=== PATIENT | female | born 1960 ===

== ENCOUNTER → 2021-08-27 11:31 | Outpatient (BNVA) | payer BC, SELFPAY | PROVIDERS: PCP Internal Medicine; Visit Provider Psychiatry & Neurology Neurology | DX: G24.3 Spasmodic torticollis (principal); M47.812 Spondylosis without myelopathy or radiculopathy, cervical region | CPT/HCPCS: 64616 ==

== ENCOUNTER → 2021-12-25 13:54 | Outpatient (BNVA) | payer BC, SELFPAY | PROVIDERS: PCP Internal Medicine; Visit Provider Psychiatry & Neurology Neurology | DX: G24.3 Spasmodic torticollis (principal); M47.812 Spondylosis without myelopathy or radiculopathy, cervical region | CPT/HCPCS: 64616; J0585 ==

== ENCOUNTER → 2022-04-13 10:59 | Outpatient (BNVA) | payer BC, SELFPAY | PROVIDERS: PCP Internal Medicine; Visit Provider Psychiatry & Neurology Neurology | DX: G24.3 Spasmodic torticollis (principal); M47.812 Spondylosis without myelopathy or radiculopathy, cervical region | CPT/HCPCS: 64616; J0588 ==

== ENCOUNTER → 2022-07-13 14:26 | Outpatient (BNVA) | payer BC, SELFPAY | PROVIDERS: PCP Internal Medicine; Visit Provider Psychiatry & Neurology Neurology | DX: G24.3 Spasmodic torticollis (principal); M47.812 Spondylosis without myelopathy or radiculopathy, cervical region | CPT/HCPCS: 64616; J0585 ==

== ENCOUNTER → 2022-10-12 11:31 | Outpatient (BNVA) | payer BC, SELFPAY | PROVIDERS: PCP Internal Medicine; Visit Provider Psychiatry & Neurology Neurology | DX: G24.3 Spasmodic torticollis (principal); M47.812 Spondylosis without myelopathy or radiculopathy, cervical region | CPT/HCPCS: 64616; J0588 ==

== ENCOUNTER → 2023-01-07 10:27 | Outpatient (BNVA) | payer BC, SELFPAY | PROVIDERS: PCP Internal Medicine; Visit Provider Psychiatry & Neurology Neurology | DX: G24.9 Dystonia, unspecified (principal) | CPT/HCPCS: 64616; J0588 ==

== ENCOUNTER 2023-04-09 10:58 | Outpatient (AMB) | payer BC, SELFPAY ==
[2023-04-09 11:07] VITALS: BP 136/96; PULSE 71; O2SAT 100; BMI 21.4
--- NOTE | 2023-04-09 11:07 | A.OFFVIS_ITS ---
Intake Vital Signs 04/09/23 11:07 Height 5 ft 10 in Weight 149 lb BMI 21.4 BP 136/96 H Blood Pressure Location Lt brachial Position Sitting Pulse 71 Pulse Source Pulse Oximeter Pulse Oximetry (%) 100 Oxygen Delivery Method Room Air Intake Visit Reasons: Botox-lvm Intake Note: Pt presents in office for botox Detasseler Required: No Allergies shellfish derived Allergy (Mild, Verified 04/09/23 11:09) Vomiting Medication List - Last Reconciled 04/09/23 by Raven Geller MD acetaminophen (Tylenol Extra Strength) 500 mg PO Q6H PRN albuterol sulfate 90 mcg/actuation 0 mcg inhalation celecoxib mg PO BID conjugated estrogens (Premarin) 0.625 mg PO DAILY cyclobenzaprine 10 mg PO BEDTIME estradiol 0.01%(0.1mg/gram) grams vaginal incobotulinumtoxinA 300 units to be injecte dto neck muscles intramuscularly ; omeprazole 40 mg PO DAILY ondansetron HCl 4 mg PO Q8H ondansetron HCl 4 mg PO Q6H spironolactone 50 mg PO DAILY HPI HPI Comments History of Present Illness Details ? 62 y/o female comes for treatment of her dystonia with Botox. ??? Side effects including spread of toxin effect, dysphagia, breathing difficulties , bronchitis etc was discussed in detail and the patient agreed to the procedure. ? Botulinum toxin type A - xeomin 300units was diluted with 6 cc of normal saline at a concentration of 25 units in 0.5cc saline. Lot number- [id number] exp 01/24 ??? Muscles injected ??? Right Splenius - 75units each right temporalis 25 units right semispinalis 25 Left Splenius 50 units Right masseter 25 units ??? Right levator 50 units each ??? Left levator 50 units ??? Total used 300 units she reports intermittent parasthesias in the whit little and ring finger especially at night ???She was seen by Dr Craft who did not think she was a surgical candidate . [facility] Medical History GERD (gastroesophageal reflux disease) Surgical History H/O: hysterectomy Family History Father Myocardial infarction Mother HTN (hypertension) Family/Other Myocardial infarction Sister Myocardial infarction Social History Alcohol intake: never Patient Tobacco Use Status: Never used Tobacco Physical Exam Vital Signs: Last Vital Signs Pulse 71 04/09/23 11:07 BP 136/96 H 04/09/23 11:07 Pulse Ox 100 04/09/23 11:07 Oxygen Delivery Method Room Air 04/09/23 11:07 BMI result Body Mass Index 21.4 Const Orientation/consciousness: patient oriented x3 HEENT Other: head tremors, restricted jaw movement Spasmodic torticollis Head: Yes normocephalic and Yes atraumatic Neuro General: patient oriented x3, gait normal, tone normal, moves all extremities and no focal motor deficits Office Procedures Botulinum toxin Injection 35462 - Dystonia Procedure code (CPT) selection complete Office Meds incobotulinumtoxinA 100 unit intramuscular solution Performing Provider: Raven Geller MD Performing Location: [facility] [place] [facility] Administered by: Raven Geller MD on 04/09/23 15:17 Dose Route Admin Location Dispensed Lot Number Expiration Date [facility] [place] [employer] 300 unit IM 300 units [id number] 03/02/25 9394-8563-95 [place] Comments: see hpi Assessment & Plan Assessment & Plan (1) 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 she will call with any side effects will refer to [facility] for opinion . Orders: Orders AMB Botulinum toxin Injection - Patient Supplied Today G24.3 - Spasmodic torticollis Coding Level of Care Code Est Pt Level 1 (96744) Diagnoses Spasmodic torticollis G24.3 Cervical spondylosis M47.812 CPT Codes Botox Injection - Botox 4: 53681 - Dystonia ([id number])
== END 2023-04-09 11:29 | disposition home or self-care (01) ==
PROVIDERS: PCP Internal Medicine; Visit Provider Psychiatry & Neurology Neurology
DX: G24.3 Spasmodic torticollis (principal)
CPT/HCPCS: 64616

== ENCOUNTER → 2023-04-09 10:58 | Outpatient (BNVA) | payer BC, SELFPAY | PROVIDERS: PCP Internal Medicine; Visit Provider Psychiatry & Neurology Neurology | DX: G24.3 Spasmodic torticollis (principal); M47.812 Spondylosis without myelopathy or radiculopathy, cervical region | CPT/HCPCS: 64616; 99211; J0588 ==

== ENCOUNTER 2023-07-12 11:00 | Outpatient (AMB) | payer BC, SELFPAY ==
--- NOTE | 2023-07-12 11:12 | A.OFFVIS_ITS ---
Intake Vital Signs 07/12/23 11:13 Height 5 ft 10 in Weight 146 lb 4 oz BMI 21.0 BP 126/72 Blood Pressure Location Rt brachial Position Sitting Respiration 16 Pulse 93 Pulse Source Pulse Oximeter Pulse Oximetry (%) 98 Oxygen Delivery Method Room Air Intake Visit Reasons: Botox - Confirmed Intake Note: Pt presents to the office for Botox injections. Prop Drawer Required: No Allergies shellfish derived Allergy (Mild, Verified 07/12/23 11:13) Vomiting Medication List - Last Reconciled 07/12/23 by Raven Geller MD acetaminophen (Tylenol Extra Strength) 500 mg PO Q6H PRN albuterol sulfate 90 mcg/actuation 0 mcg inhalation amlodipine 5 mg PO DAILY celecoxib mg PO BID conjugated estrogens (Premarin) 0.625 mg PO DAILY cyclobenzaprine 10 mg PO BEDTIME estradiol 0.01%(0.1mg/gram) grams vaginal incobotulinumtoxinA 300 units to be injecte dto neck muscles intramuscularly ; omeprazole 40 mg PO DAILY ondansetron HCl 4 mg PO Q8H ondansetron HCl 4 mg PO Q6H spironolactone 50 mg PO DAILY HPI HPI Comments History of Present Illness Details ? 62 y/o female comes for treatment of her dystonia with Botox. ??? Side effects including spread of toxin effect, dysphagia, breathing difficulties , bronchitis etc was discussed in detail and the patient agreed to the procedure. ? Botulinum toxin type A - xeomin 300units was diluted with 6 cc of normal saline at a concentration of 25 units in 0.5cc saline. Lot number- [id number] exp 04/26 ??? Muscles injected ??? Right Splenius - 75units each right temporalis 25 units right semispinalis 25 Left Splenius 50 units Right masseter 25 units Left masseter 25 units ??? Right levator 50 units each ??? Left levator 25 units ??? Total used 300 units she reports intermittent parasthesias in the whit little and ring finger especially at night ???She was seen by Dr Craft who did not think she was a surgical candidate . [facility] Medical History GERD (gastroesophageal reflux disease) Surgical History H/O: hysterectomy Family History Father Myocardial infarction Mother HTN (hypertension) Family/Other Myocardial infarction Sister Myocardial infarction Social History Alcohol intake: never Patient Tobacco Use Status: Never used Tobacco Physical Exam Vital Signs: Last Vital Signs Pulse 93 07/12/23 11:13 Resp 16 07/12/23 11:13 BP 126/72 07/12/23 11:13 Pulse Ox 98 07/12/23 11:13 Oxygen Delivery Method Room Air 07/12/23 11:13 BMI result Body Mass Index 21.0 Const Orientation/consciousness: patient oriented x3 HEENT Other: head tremors, restricted jaw movement Spasmodic torticollis Head: Yes normocephalic and Yes atraumatic Neuro General: patient oriented x3, gait normal, tone normal, moves all extremities and no focal motor deficits Office Procedures Botulinum toxin Injection 78046 - Dystonia Procedure code (CPT) selection complete Office Meds incobotulinumtoxinA 100 unit intramuscular solution Performing Provider: Raven Geller MD Performing Location: [facility] [place] [facility] Administered by: Raven Geller MD on 07/12/23 11:58 Dose Route Admin Location Dispensed Lot Number Expiration Date 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 she will call with any side effects will refer to [facility] for opinion . Orders: Orders AMB Botulinum toxin Injection - Patient Supplied Today G24.3 - Spasmodic torticollis Coding Level of Care Code Est Pt Level 1 (02811) Diagnoses Spasmodic torticollis G24.3 Cervical spondylosis M47.812 CPT Codes Botox Injection - Botox 4: 33336 - Dystonia ([id number])
[2023-07-12 11:13] VITALS: BP 126/72; PULSE 93; RESP 16; O2SAT 98; BMI 21.0
== END 2023-07-12 11:49 | disposition home or self-care (01) ==
PROVIDERS: PCP Internal Medicine; Visit Provider Psychiatry & Neurology Neurology
DX: G24.3 Spasmodic torticollis (principal)
CPT/HCPCS: 64616

== ENCOUNTER → 2023-07-12 11:00 | Outpatient (BNVA) | payer BC, SELFPAY | PROVIDERS: PCP Internal Medicine; Visit Provider Psychiatry & Neurology Neurology | DX: G24.3 Spasmodic torticollis (principal); M47.812 Spondylosis without myelopathy or radiculopathy, cervical region | CPT/HCPCS: 64616; 99211; J0588 ==

== ENCOUNTER 2023-08-11 10:59 | Outpatient (AMB) | payer BC, SELFPAY ==
--- NOTE | 2023-08-11 11:03 | A.OFFVIS_ITS ---
Intake Vital Signs 08/11/23 11:04 Height 5 ft 10 in BP 122/84 Blood Pressure Location Rt brachial Position Sitting Pulse 93 Pulse Source Pulse Oximeter Pulse Oximetry (%) 99 Oxygen Delivery Method Room Air Intake Visit Reasons: F/u Allergies shellfish derived Allergy (Mild, Verified 08/11/23 11:08) Vomiting Medication List - Last Reconciled 08/11/23 by Raven Geller MD acetaminophen (Tylenol Extra Strength) 500 mg PO Q6H PRN albuterol sulfate 90 mcg/actuation 0 mcg inhalation amitriptyline 25 mg PO BEDTIME amlodipine 5 mg PO DAILY celecoxib mg PO BID conjugated estrogens (Premarin) 0.625 mg PO DAILY cyclobenzaprine 10 mg PO BEDTIME estradiol 0.01%(0.1mg/gram) grams vaginal incobotulinumtoxinA 300 units to be injecte dto neck muscles intramuscularly ; omeprazole 40 mg PO DAILY ondansetron HCl 4 mg PO Q8H ondansetron HCl 4 mg PO Q6H spironolactone 50 mg PO DAILY HPI HPI Comments History of Present Illness Details 62y/o female with cervical spondylosis a nd dystonia , jaw tremors comes for evaluation of head pain headaches and transient vision loss.she also has numbness in whit hands and hand tremors . ABout 1 year she started having vision issues - she describes like a crescent shaped visual field loss in whit eyes- when she is reading she has some words that are blurry and when she closes her eye she sees bright kaliedoscope patterns which last 20 minutes and had headaches.she had these episodes daily for 2 weeks and it resolved.the headaches are associated with photophobia nausea etc. She has had multiple lyme infections - and everytime she has similar headaches with visual issues. she was diagnosed with Lyme and treated with antibiotics. 3 mths ago she had another lyme infection and is on antibiotics, again she started having similar episodes. she has 1 episode a week . [facility] Medical History (Updated 08/11/23 @ 11:35 by Raven Geller MD) Migraine aura occurring with and without headache Numbness and tingling in both hands GERD (gastroesophageal reflux disease) Surgical History H/O: hysterectomy Family History Father Myocardial infarction Mother HTN (hypertension) Family/Other Myocardial infarction Sister Myocardial infarction Social History Alcohol intake: never Patient Tobacco Use Status: Never used Tobacco Physical Exam Vital Signs: Last Vital Signs Pulse 93 08/11/23 11:04 BP 122/84 08/11/23 11:04 Pulse Ox 99 08/11/23 11:04 Oxygen Delivery Method Room Air 08/11/23 11:04 Const Orientation/consciousness: patient oriented x3 HEENT Other: head tremors, restricted jaw movement Spasmodic torticollis Head: Yes normocephalic and Yes atraumatic Neuro General: patient oriented x3, gait normal, tone normal, moves all extremities and no focal motor deficits Assessment & Plan Assessment & Plan (1) Migraine aura occurring with and without headache: Code(s): G43.109 - Migraine with aura, not intractable, without status migrainosus (2) Numbness and tingling in both hands: Code(s): R20.0 - Anesthesia of skin; R20.2 - Paresthesia of skin Plan EMG UE to r/o carpal tunnel syndrome I will trail her on amitriptyline 25mg qhs and magnesium 300mg qhs Vit B 2 400mg qam 'sumatriptan 50mg prn Orders: Orders NE electromyogram (EMG) Today R20.0 - Anesthesia of skin, R20.2 - Paresthesia of skin Medications: New amitriptyline 25 mg PO BEDTIME 30 tabs 6RF sumatriptan succinate take 1 tab at onset of headache; if no relief may repeat 1 tab after at least 2 hrs; max = 4 tabs/24 hr PO 14 tabs 6RF riboflavin (vitamin B2) 400 mg (4 x 100 mg) PO DAILY 120 tabs 6RF Coding Level of Care Code Est Pt Level 4 (54750) Diagnoses Migraine aura occurring with and without headache G43.109 Numbness and tingling in both hands R20.0; R20.2
[2023-08-11 11:04] VITALS: BP 122/84; PULSE 93; O2SAT 99
== END 2023-08-11 11:41 | disposition home or self-care (01) ==
PROVIDERS: PCP Internal Medicine; Visit Provider Psychiatry & Neurology Neurology
DX: G43.109 Migraine with aura, not intractable, without status migrainosus (principal); R20.0 Anesthesia of skin; R20.2 Paresthesia of skin
CPT/HCPCS: 99214

== ENCOUNTER → 2023-08-11 10:59 | Outpatient (BNVA) | payer BC, SELFPAY | PROVIDERS: PCP Internal Medicine; Visit Provider Psychiatry & Neurology Neurology ==

== ENCOUNTER 2023-09-15 13:24 | Outpatient (REF) | payer BC, SELFPAY ==
--- NOTE | 2023-09-15 13:30 | EMG_ITS ---
Chief complaint: Bilateral numbness 4th and 5th digits, chronic neck pain Reason for referral: Evaluate for ulnar neuropathy Referred by: Dr. Geller Procedure done: Bilateral upper extremities NCS/EMG Precautions and/or limitations: None The limb temperature was monitored continuously and remained between 32-36 degrees C during the performance of the NCS. Ulnar motor NCS was performed with moderate elbow flexion between 70-90 degrees, with across-elbow distance of 10 cm. Nerve Conduction Studies Anti Sensory Summary Table ?Stim Site NR Onset (ms) Norm Onset (ms) Peak (ms) Norm Peak (ms) O-P Amp (?V) Norm O-P Amp Site1 Site2 Delta-0 (ms) Dist (cm) Chinmay (m/s) Norm Chinmay (m/s) Left Median Anti Sensory (2nd Digit) Wrist ? 2.7 3.6 <3.6 9.1 >10 Wrist 2nd Digit 2.7 14.0 52 Right Median Anti Sensory (2nd Digit) Wrist ? 2.9 3.8 <3.6 19.3 >10 Wrist 2nd Digit 2.9 14.0 48 Right Radial Anti Sensory (Thumb) Forearm ? 1.7 2.5 <3.1 13.7 Forearm Thumb 1.7 0.0 Left Ulnar Anti Sensory (5th Digit) Wrist ? 2.7 3.4 <3.7 16.7 >15.0 Wrist 5th Digit 2.7 14.0 52 Right Ulnar Anti Sensory (5th Digit) Wrist ? 2.8 3.8 <3.7 17.0 >15.0 Wrist 5th Digit 2.8 14.0 50 Motor Summary Table ?Stim Site NR Onset (ms) Norm Onset (ms) O-P Amp (mV) Norm O-P Amp iAmp (mV) Amp (1st) (%) Site1 Site2 Delta-0 (ms) Dist (cm) Chinmay (m/s) Norm Chinmay (m/s) Left Median Motor (Abd Poll Brev) Wrist ? 3.6 <3.9 9.8 >4.5 11.4 100.0 Elbow Wrist 4.6 25.0 54 >45 Elbow ? 8.2 9.3 11.1 94.9 Right Median Motor (Abd Poll Brev) Wrist ? 3.6 <3.9 11.2 >4.5 13.6 100.0 Elbow Wrist 4.9 25.0 51 >45 Elbow ? 8.5 10.3 12.6 92.0 Left Ulnar Motor (Abd Dig Minimi) Wrist ? 3.0 <3.0 9.4 >5 11.7 100.0 B Elbow Wrist 4.2 20.0 48 >45 B Elbow ? 7.2 8.2 10.7 87.2 A Elbow B Elbow 2.0 10.0 50 >45 A Elbow ? 9.2 6.8 9.5 72.3 Right Ulnar Motor (Abd Dig Minimi) Wrist ? 3.0 <3.0 8.4 >5 10.9 100.0 B Elbow Wrist 4.4 22.0 50 >45 B Elbow ? 7.4 7.0 9.5 83.3 A Elbow B Elbow 1.8 10.0 56 >45 A Elbow ? 9.2 6.9 9.3 82.1 EMG ?Side Muscle Nerve Root Ins Act Fibs Psw Amp Dur Poly Recrt Int Pat Comment Right 1stDorInt Ulnar C8-T1 Nml Nml Nml Nml Nml 0 Nml Complete Right FlexCarRad Median C6-7 Nml Nml Nml Nml Nml 0 Nml Complete Right Biceps Musculocut C5-6 Nml Nml Nml Nml Nml 0 Nml Complete Right Triceps Radial C6-7-8 Nml Nml Nml Nml Nml 0 Nml Complete Right Deltoid Axillary C5-6 Nml Nml Nml Nml Nml 0 Nml Complete Left 1stDorInt Ulnar C8-T1 Nml Nml Nml Nml Nml 0 Nml Complete Left FlexCarRad Median C6-7 Nml Nml Nml Nml Nml 0 Nml Complete Left Biceps Musculocut C5-6 Nml Nml Nml Incr Incr 0 Nml Complete Left Triceps Radial C6-7-8 Nml Nml Nml Nml Nml 0 Nml Complete Left Deltoid Axillary C5-6 Nml Nml Nml Nml Nml 0 Nml Complete Paraspinal EMG ?Side Muscle Nerve Root Ins Act Fibs Psw Comment Right Cervical Upper Rami Nml Nml Nml Right Cervical Mid Rami Nml Nml Nml Right Cervical Lower Rami Nml Nml Nml Left Cervical Upper Rami Nml Nml Nml Left Cervical Mid Rami Incr 2+ 2+ Left Cervical Lower Rami Nml Nml Nml FINDINGS: All motor and sensory nerves tested showed normal latencies, amplitudes and conduction velocities. Concentric needle EMG was performed in selected muscles of the bilateral upper extremities and cervical paraspinals. Study revealed Signs of electric abnormalities as shown in the table below. Left biceps showed increased amplitude and duration. Left mid cervical paraspinals showed insertional activity, PSWs and fibrillations. IMPRESSION: 1. This is an abnormal study. 2. There is electrodiagnostic evidence for left subacute/chronic C5-6 radiculopathy. 3. There is no electrodiagnostic evidence for median neuropathy, ulnar neuropathy, or brachial plexopathy. Thank you for your kind referral. Alexandria Avalos MD, LAUREN Board Certified, [place] Board of Physical Medicine and Rehabilitation (ABPMR) Board Certified, [place] Board of Electrodiagnostic Medicine (ABEM) CODIN 41542 x2 MTDD
== END 2023-09-15 13:25 | disposition home or self-care (01) ==
LOC: HO.NEURO 13:24
PROVIDERS: Visit Provider Psychiatry & Neurology Neurology
DX: R20.0 Anesthesia of skin (principal); R20.2 Paresthesia of skin
CPT/HCPCS: 95886; 95911

== ENCOUNTER → 2023-09-15 13:30 | Outpatient (BNV) | payer BC, SELFPAY | PROVIDERS: Visit Provider Physical Medicine & Rehabilitation | DX: R20.0 Anesthesia of skin (principal); M50.122 Cervical disc disorder at C5-C6 level with radiculopathy | CPT/HCPCS: 95886; 95911 ==

== ENCOUNTER 2023-11-16 12:56 | Outpatient (AMB) | payer BC, SELFPAY ==
--- NOTE | 2023-11-16 13:03 | MHC.OFFVIS ---
Intake Vital Signs 11/16/23 13:04 Height 5 ft 10 in Weight 148 lb BMI 21.2 BP 138/70 Blood Pressure Location Rt brachial Position Sitting Respiration 16 Pulse 85 Pulse Source Pulse Oximeter Pulse Oximetry (%) 98 Oxygen Delivery Method Room Air Intake Visit Reasons: 3 mo f/u-LVM Intake Note: Pt presents for a 3 month follow up for migraines. Glass Loading Equipment Tender Required: No Allergies shellfish derived Allergy (Mild, Verified 11/16/23 13:03) Vomiting HPI HPI Comments History of Present Illness Details 63y/o female with cervical spondylosis and dystonia , jaw tremors comes for follow up. she was seen at [facility] and had RF ablation - C5-6 and C6-7 she is doing better. she had neck weakness after botox but now she is better, Amitriptyline helps with her migraines. she had 2 migraines last month . No visual aura for over 3 weeks ABout 2 year she started having vision issues - she describes like a crescent shaped visual field loss in whit eyes- when she is reading she has some words that are blurry and when she closes her eye she sees bright kaliedoscope patterns which last 20 minutes and had headaches.the headaches are associated with photophobia nausea etc. She has had multiple lyme infections - and everytime she has similar headaches with visual issues. she was diagnosed with Lyme and treated with antibiotics. [facility] Medical History Migraine aura occurring with and without headache Numbness and tingling in both hands GERD (gastroesophageal reflux disease) Surgical History H/O: hysterectomy Family History Father Myocardial infarction Mother HTN (hypertension) Family/Other Myocardial infarction Sister Myocardial infarction Social History Alcohol intake: never Patient Tobacco Use Status: Never used Tobacco Physical Exam Vital Signs: Last Vital Signs Pulse 85 11/16/23 13:04 Resp 16 11/16/23 13:04 BP 138/70 11/16/23 13:04 Pulse Ox 98 11/16/23 13:04 Oxygen Delivery Method Room Air 11/16/23 13:04 BMI result Body Mass Index 21.2 Const Orientation/consciousness: patient oriented x3 HEENT Other: restricted range of motion Spasmodic torticollis Head: Yes normocephalic and Yes atraumatic Neuro General: patient oriented x3, gait normal, tone normal, moves all extremities and no focal motor deficits Results Reviewed Results Reviewed: 09/25 - EMG- 2. There is electrodiagnostic evidence for left subacute/chronic C5-6 radiculopathy. 3. There is no electrodiagnostic evidence for median neuropathy, ulnar neuropathy, or brachial plexopathy. Assessment & Plan Assessment & Plan (1) Migraine aura occurring with and without headache: Code(s): G43.109 - Migraine with aura, not intractable, without status migrainosus (2) Cervical spondylosis: Code(s): M47.812 - Spondylosis without myelopathy or radiculopathy, cervical region Plan Amitriptyline 25mg qhs and magnesium 300mg qhs Vit B 2 400mg qam 'sumatriptan 50mg prn F/u [facility] Coding Level of Care Code Est Pt Level 4 (91452) Diagnoses Migraine aura occurring with and without headache G43.109 Cervical spondylosis M47.812
[2023-11-16 13:04] VITALS: BP 138/70; PULSE 85; RESP 16; O2SAT 98; BMI 21.2
== END 2023-11-16 13:27 | disposition home or self-care (01) ==
PROVIDERS: PCP Internal Medicine; Visit Provider Psychiatry & Neurology Neurology
DX: G43.109 Migraine with aura, not intractable, without status migrainosus (principal); M47.812 Spondylosis without myelopathy or radiculopathy, cervical region
CPT/HCPCS: 99214

== ENCOUNTER → 2023-11-16 12:56 | Outpatient (BNVA) | payer BC, SELFPAY | PROVIDERS: PCP Internal Medicine; Visit Provider Psychiatry & Neurology Neurology ==

== ENCOUNTER 2024-02-29 09:56 | Outpatient (AMB) | payer BC, SELFPAY ==
--- NOTE | 2024-02-29 10:10 | A.OFFVIS_ITS ---
Vital Signs 02/29/24 10:14 Height 5 ft 10 in Weight 148 lb BMI 21.2 BP 140/82 H Blood Pressure Location Rt brachial Position Sitting Respiration 16 Pulse 90 Pulse Source Pulse Oximeter Pulse Oximetry (%) 98 Oxygen Delivery Method Room Air Intake Visit Reasons: 6 mon follow up-LVM Intake Note: Pt presents to the office for 3 month follow up for Cervical spondylosis. Childcare Center Director Required: No Allergies shellfish derived Allergy (Mild, Verified 02/29/24 10:10) Vomiting Medication List - Last Reconciled 02/29/24 by Raven Geller MD acetaminophen (Tylenol Extra Strength) 500 mg PO Q6H PRN albuterol sulfate 90 mcg/actuation 0 mcg inhalation amitriptyline 50 mg (2 x 25 mg) PO BEDTIME amlodipine 5 mg PO DAILY celecoxib mg PO BID conjugated estrogens (Premarin) 0.625 mg PO DAILY cyclobenzaprine 10 mg PO BEDTIME estradiol 0.01%(0.1mg/gram) grams vaginal omeprazole 40 mg PO DAILY ondansetron HCl 4 mg PO Q8H ondansetron HCl 4 mg PO Q6H riboflavin (vitamin B2) 400 mg (4 x 100 mg) PO DAILY spironolactone 50 mg PO DAILY sumatriptan succinate take 1 tab at onset of headache; if no relief may repeat 1 tab after at least 2 hrs; max = 4 tabs/24 hr PO HPI Comments Details: 63y/o female with cervical spondylosis and dystonia , jaw tremors comes for follow up.she is feeling Ok but has some tingling in the posterior neck intermittently - last few seconds ( almost like bee sting) she was seen at [facility] and had RF ablation - C5-6 and C6-7 - did not follow up. she is doing better. Amitriptyline 25mg qhs helps with her migraines. she had 3 migraines last month . But has visual aura 3/week . They last 15-20 minutes.she saw device processing engineer in Aug 2023 . ABout 2 year she started having vision issues - she describes like a crescent shaped visual field loss in whit eyes- when she is reading she has some words that are blurry and when she closes her eye she sees bright kaliedoscope patterns which last 20 minutes and had headaches.the headaches are associated with photophobia nausea etc. She has had multiple lyme infections - and everytime she has similar headaches with visual issues. [facility] Medical History (Updated 02/29/24 @ 10:28 by Raven Geller MD) Chronic headaches Visual aura Migraine aura occurring with and without headache Numbness and tingling in both hands GERD (gastroesophageal reflux disease) Surgical History H/O: hysterectomy Family History Father Myocardial infarction Mother HTN (hypertension) Family/Other Myocardial infarction Sister Myocardial infarction Social History Alcohol intake: never Patient Tobacco Use Status: Never used Tobacco Physical Exam Vital Signs: Last Vital Signs Pulse 90 02/29/24 10:14 Resp 16 02/29/24 10:14 BP 140/82 H 02/29/24 10:14 Pulse Ox 98 02/29/24 10:14 Oxygen Delivery Method Room Air 02/29/24 10:14 BMI result Body Mass Index 21.2 Const Orientation/consciousness: patient oriented x3 HEENT Other: restricted range of motion Spasmodic torticollis Head: Yes normocephalic and Yes atraumatic Neuro General: patient oriented x3, gait normal, tone normal, moves all extremities and no focal motor deficits Assessment & Plan Assessment & Plan (1) Migraine aura occurring with and without headache: Code(s): G43.109 - Migraine with aura, not intractable, without status migrainosus Category: Medical (2) Cervical spondylosis: Code(s): M47.812 - Spondylosis without myelopathy or radiculopathy, cervical region Category: Medical (3) Visual aura: Code(s): H53.9 - Unspecified visual disturbance Category: Medical Plan Increase Amitriptyline 50mg qhs and magnesium 300mg qhs Vit B 2 400mg qam 'sumatriptan 50mg prn F/u [facility] will check for lyme Orders: Orders Lyme IgG/IgM w/reflex to WB Today G43.109 - Migraine with aura, not intractable, without status migrainosus, G89.29 - Other chronic pain, H53.9 - Unspecified visual disturbance, R51.9 - Headache, unspecified Medications: New ondansetron HCl 4 mg PO Q6H 30 tabs 2RF Changed From amitriptyline 25 mg PO BEDTIME 30 tabs 6RF To amitriptyline 50 mg (2 x 25 mg) PO BEDTIME 60 tabs 6RF Refilled ondansetron HCl 4 mg PO Q6H 30 tabs 2RF Coding Level of Care Code Est Pt Level 4 (17388) Diagnoses Migraine aura occurring with and without headache G43.109 Cervical spondylosis M47.812 Visual aura H53.9
[2024-02-29 10:14] VITALS: BP 140/82; PULSE 90; RESP 16; O2SAT 98; BMI 21.2
== END 2024-02-29 10:32 | disposition home or self-care (01) ==
PROVIDERS: PCP Internal Medicine; Visit Provider Psychiatry & Neurology Neurology
DX: G43.109 Migraine with aura, not intractable, without status migrainosus (principal); M47.812 Spondylosis without myelopathy or radiculopathy, cervical region; H53.9 Unspecified visual disturbance
CPT/HCPCS: 99214

== ENCOUNTER → 2024-02-29 09:56 | Outpatient (BNVA) | payer BC, SELFPAY | PROVIDERS: PCP Internal Medicine; Visit Provider Psychiatry & Neurology Neurology ==

== ENCOUNTER 2024-02-29 10:35 | Outpatient (REF) | payer BC, SELFPAY ==
[2024-03-03 11:42] LABS: Lyme Abs Screen POSITIVE
[2024-03-06 21:44] LABS: 18 KD (IgG) Band REACTIVE; 23 KD (IgG) Band REACTIVE; 23 KD (IgM) Band REACTIVE; 28 KD (IgG) Band NON-REACTIVE; 30 KD (IgG) Band NON-REACTIVE; 39 KD (IgM) Band NON-REACTIVE; 39KD (IgG) Band REACTIVE; 41 KD (IgM) Band NON-REACTIVE; 41KD (IgG) Band REACTIVE; 45 KD (IgG) Band NON-REACTIVE; 58 KD (IgG) Band REACTIVE; 66 KD (IgG) Band NON-REACTIVE; 93 KD (IgG) Band NON-REACTIVE; Lyme IgG Blot Interp POSITIVE (NEGATIVE); Lyme IgM Blot Interp NEGATIVE (NEGATIVE)
== END 2024-02-29 10:36 | disposition home or self-care (01) ==
LOC: HO.HKASLDS 10:35
PROVIDERS: Visit Provider Psychiatry & Neurology Neurology
DX: G43.109 Migraine with aura, not intractable, without status migrainosus (principal); H53.9 Unspecified visual disturbance; G89.29 Other chronic pain
CPT/HCPCS: 36415; 86617; 86618

== ENCOUNTER 2024-09-28 12:31 | Outpatient (AMB) | payer BC, SELFPAY ==
--- NOTE | 2024-09-28 12:32 | A.OFFVIS_ITS ---
Vital Signs 09/28/24 12:33 Height 5 ft 10 in Weight 151 lb BMI 21.7 BP 122/88 Blood Pressure Location Rt brachial Position Sitting Pulse 92 Pulse Source Pulse Oximeter Pulse Oximetry (%) 98 Oxygen Delivery Method Room Air Intake Visit Reasons: 6m follow up Intake Note: patient following up for labs done 02/29/24- [facility] consult 03/05/23 scanned. Allergies shellfish derived Allergy (Mild, Verified 09/28/24 12:34) Vomiting Medication List - Last Reconciled 09/28/24 by Raven Geller MD acetaminophen (Tylenol Extra Strength) 500 mg PO Q6H PRN albuterol sulfate 90 mcg/actuation 0 mcg inhalation amitriptyline 50 mg (2 x 25 mg) PO BEDTIME amlodipine 5 mg PO DAILY celecoxib mg PO BID conjugated estrogens (Premarin) 0.625 mg PO DAILY cyclobenzaprine 10 mg PO BEDTIME estradiol 0.01%(0.1mg/gram) grams vaginal magnesium carb,citrate,oxide (Magnesium Complex) mg PO omeprazole 40 mg PO DAILY ondansetron HCl 4 mg PO Q8H ondansetron HCl 4 mg PO Q6H riboflavin (vitamin B2) 400 mg (4 x 100 mg) PO DAILY spironolactone 50 mg PO DAILY sumatriptan succinate take 1 tab at onset of headache; if no relief may repeat 1 tab after at least 2 hrs; max = 4 tabs/24 hr PO HPI Comments Details: 63y/o female with cervical spondylosis and dystonia , jaw tremors comes for follow up. she is following up with [facility] . she had a second ablation in her neck 6 weeks ago and has not noticed a difference.C3-4-5. Last ablation was RF at C 5-6-7. The tingling in posterior head are better. she still ahs a daily low grade headache 4/10 and has visual aura for 20 minutes. she saw operations representative in Aug 2023 . Lyme test was positive in January 2024- had another course of antibiotics. ABout 6 year she started having vision issues - she describes like a crescent shaped visual field loss in whit eyes- when she is reading she has some words that are blurry and when she closes her eye she sees bright kaliedoscope patterns which last 20 minutes and had headaches.the headaches are associated with photophobia nausea etc. She has had multiple lyme infections - and everytime she has similar headaches with visual issues. [facility] Medical History (Updated 09/28/24 @ 12:53 by Raven Geller MD) Chronic migraine with aura without status migrainosus, not intractable Lyme disease, unspecified Chronic headaches Visual aura Migraine aura occurring with and without headache Numbness and tingling in both hands GERD (gastroesophageal reflux disease) Surgical History H/O: hysterectomy Family History Father Myocardial infarction Mother HTN (hypertension) Family/Other Myocardial infarction Sister Myocardial infarction Social History Alcohol intake: never Patient Tobacco Use Status: Never used Tobacco Physical Exam Vital Signs: Last Vital Signs Pulse 92 09/28/24 12:33 BP 122/88 09/28/24 12:33 Pulse Ox 98 09/28/24 12:33 Oxygen Delivery Method Room Air 09/28/24 12:33 BMI result Body Mass Index 21.7 Const Orientation/consciousness: patient oriented x3 HEENT Other: restricted range of motion Spasmodic torticollis Head: Yes normocephalic and Yes atraumatic Neuro General: patient oriented x3, gait normal, tone normal, moves all extremities and no focal motor deficits Assessment & Plan Assessment & Plan (1) Chronic migraine with aura without status migrainosus, not intractable: Code(s): G43.E09 - Chronic migraine with aura, not intractable, without status migrainosus Category: Medical (2) Cervical spondylosis: Code(s): M47.812 - Spondylosis without myelopathy or radiculopathy, cervical region Category: Medical (3) Visual aura: Code(s): H53.9 - Unspecified visual disturbance Category: Medical Plan ID ref for possible chronic Lyme Lyme titer Restart cyclobenzaprine 5 mg qhs ( she has meds at home ) Amitriptyline 50mg qhs and magnesium 300mg qhs Vit B 2 400mg qam 'sumatriptan 50mg prn F/u [facility] will check for lyme Orders: Orders Lyme IgG/IgM w/reflex to [facility] Today A69.20 - Lyme disease, unspecified, G43.E09 - Chronic migraine with aura, not intractable, without status migrainosus Referrals Infectious Disease Referral A69.20 - Lyme disease, unspecified, G89.29 - Other chronic pain, R51.9 - Headache, unspecified Medications: Refilled cyclobenzaprine 10 mg PO BEDTIME 30 tabs 1RF Coding Level of Care Code Est Pt Level 4 (04127) Complex EM visit Add On G2211 Diagnoses Chronic migraine with aura without status migrainosus, not intractable G43.E09 Cervical spondylosis M47.812 Visual aura H53.9
[2024-09-28 12:33] VITALS: BP 122/88; PULSE 92; O2SAT 98; BMI 21.7
--- OUTSIDE RECORDS SUMMARY | 2024-09-28 14:56 | XMS_ITS | Encounter Summary ---
Author Organization [facility] Address [address] [place] [address] Care Team Providers Care Displayer Merchandise Name Role Phone Dar Starks MD Primary Care Provider [phone] Encounter Details Date Type Department Care Team (Latest Contact Info) Description 09/06/2024 3:04 PM EST - 09/06/2024 11:59 PM EST Hospital Encounter Xray - [facility] [address] [place] [id number] Viral URI with cough; Moderate persistent asthma with exacerbation; Wheezing Discharge Disposition: Home or Self Care Social History Tobacco Use Types Packs/Day Years Used Date Smoking Tobacco: Never Smokeless Tobacco: Never Alcohol Use Standard Drinks/Week Comments Yes 0 (1 standard drink = 0.6 oz pur e alcohol) Comments No Sex and Gender Information Value Date Recorded Sex Assigned at Not on file Legal Sex Female 9:52 PM EST Gender Identity Not on file Sexual Orientation Not on file documented as of this encounter Medications at Time of Discharge albuterol HFA (PROAIR HFA ; PROVENTIL HFA ; VENTOLIN HFA) 90 mcg/actuation inhaler Inhale 2 puffs by mouth. 03/26/2022 amitriptyline (ELAVIL) 25 mg tablet 09/15/2023 amLODIPine (NORVASC) 5 mg tablet Take 1 tablet (5 mg total) by mouth 1 (one) time each day. 90 tablet 1 09/06/2024 budesonide (PULMICORT) 1 mg/2 mL nebulizer solution 10/17/2023 cyclobenzaprine (FLEXERIL) 10 mg tablet Take 1 tablet (10 mg total) by mouth. 09/16/2023 estradioL (ESTRACE) 0.01 % (0.1 mg/gram) vaginal cream Apply 1g PV nightly for 2 weeks and then 1-2 nights a week thereafter 07/07/2022 magnesium carb,citrate,oxi de (Magnesium Complex) 300 mg magnesium tablet Take 300 mg by mouth at bedtime. - Oral predniSONE (DELTASONE) 20 mg tablet Take 1 tablet (20 mg total) by mouth 1 (one) time each day. 10 each 09/06/2024 SPIRONOLACTONE ORAL Take by mouth omeprazole (PriLOSEC) [address] capsule Take 1 capsule (40 mg total) by mouth 1 (one) time each day. 90 each 08/04/2024 5 Premarin 0.9 mg tablet Take 1 tablet (0.9 mg total) by mouth 1 (one) time each day. 30 tablet 09/01/2024 5 documented as of this encounter Discharge Disposition Disposition Code Departure Means Destination Home or Self Care documented in this encounter Plan of Treatment Upcoming Encounters Date Type Department Care Team (Late st Contact Info) Description 11/01/2024 10:30 AM EDT [facility] [address] [place] [address] Viktoriya Adorno DO [address] [place] [address] 01/01/2025 1:30 PM EDT Appointment Radiology Department [address] [address] documented as of this encounter Procedures Procedure Name Priority Date/Time Associated Diagnosis Comments XR CHEST 2 VIEWS Routine 09/06/2024 3:10 PM EST Viral URI with cough Moderate persistent asthma with exacerbation Wheezing documented in this encounter Results * XR Chest 2 Views (09/06/2024 3:10 PM EST) Anatomical Region Laterality Modality Body Radiographic Claire ging 09/06/2024 3:26 PM EST Narrative 09/06/2024 3:27 PM EST Chest, 2 views. History persistent cough. Comparison with previous studies, latest from 09/16/2023. Lungs remain hyperinflated. There is no pneumothorax, pleural effusions or focal consolidations. Heart is normal in size. CONCLUSIONS: Hyperinflation. No acute radiographic abnormalities. -------- FINAL REPORT -------- Dictated By: Felicia Holm Dictated Date: 09/06/2024 15:26 ET Assigned Physician: Felicia Holm Reviewed and Electronically Signed By: Felicia Holm Signed Date: 09/06/2024 15:27 ET Workstation ID: [id number] Transcribed By: Self Edit Transcribed Date: 09/06/2024 15:26 ET Procedure Note Felicia Holm MD - 09/06/2024 Chest, 2 views. History persistent cough. Comparison with previous studies, latest from 09/16/2023. Lungs remain hyperinflated. There is no pneumothorax, pleural effusions orfocal consolidations. Heart is normal in size. CONCLUSIONS: Hyperinflation. No acute radiographic abnormalities. -------- FINAL REPORT -------- Dictated By: Felicia Holm Dictated Date: 09/06/2024 15:26 ET Assigned Physician: Felicia Holm Reviewed and Electronically Signed By: Felicia Holm Signed Date: 09/06/2024 15:27 ET Workstation ID: [id number] Transcribed By: Self Edit Transcribed Date: 09/06/2024 15:26 ET Dar Starks MD IMG XR PROCEDURES Final Result documented in this encounter Visit Diagnoses Diagnosis Viral URI with cough Moderate persistent asthma with exacerbation Unspecified asthma, with exacerbation Wheezing documented in this encounter Additional Health Concerns Infection Onset Date Last Indicated Resolved Time Respiratory Rule-Out 09/06/2024 09/06/2024 025 9:29 PM EST COVID-19 Rule-Out 09/06/2024 09/06/2024 09/06/2024 9:29 PM EST Influenza 09/06/2024 09/06/2024 documented as of this encounter Care Teams Displayer Merchandise Relationship Specialty Start Date End Date Dar Starks MD [address] [place] [address] PCP - General Internal Medicine 10/20/21 documented as of this encounter
--- OUTSIDE RECORDS SUMMARY | 2024-09-28 14:56 | XMS_ITS | Encounter Summary ---
Author Organization [facility] Address [address] [place] [address] Care Team Providers Care Optical Instrument Inspector Name Role Phone Dar Starks MD Primary Care Provider Reason for Visit * Reason Onset Date Comments Earache 08/28/2024 Encounter Details Date Type Department Care Team ([facility] Contact Info) Description 08/28/2024 Telephone Global Expansion Sales Director - [facility] [address] [place] [address] Dar Starks MD [address] [place] [address] Earache Social History Tobacco Use Types Packs/Day Years [...] on file documented as of this encounter Progress Notes * Erica Kruse LPN - 08/28/2024 1:50 PM EST Spoke with pt she states she is having bilat ear pain and went to outside twice and they state she has no infection. Pt states her ears are painful. No available appt's for TUC so I gave her the number to call in the am for availability and pt also has appt with PCP on 09/06. * Ramiro Pavon - 08/28/2024 11:44 AM EST Patient call requires triage: Symptoms patient is presenting: ear ache, has been to two different UC, pain in both ears How long has patient had these symptoms?: 9 days For ALL patients calling to schedule any appointment (routine, sick visit, follow up, consult, etc.) in the outpatient setting please ask the following questions: Do you have fever of higher than 101, sore throat with difficulty swallowing or severe shortness ofbreath? no If YES to any of these above symptoms, send a message to triage and do not book. Red dot. If no, an audio or video visit should be booked. Have you had close contact with someone with Coronavirus in the last 14 days? no Have you traveled abroad? no Have you traveled recently to another state outside of [place], [place], [place], [place], [place]? no o If yes, did you quarantine for 14 days or have a negative covid test? no If yes to any of the above, patient is not to be scheduled in office until after 14 day quarantine or negative covid test. If pain or injury related was it due to an accident at work or from a motor vehicle accident? If yes, date of accident/Injury: No If yes, gather 3rd libertarian insurance information Third Democrat Information: not applicable PCP: Dar Starks MD Payor: [facility] [employer] / Plan: [facility] [employer] / Product Type: *No Product type* / documented in this encounter Plan of Treatment Upcoming Encounters Date Type Department Care Team (Late st Contact Info) Description 11/01/2024 10:30 AM EDT Office Visit Obstetrics and Gynecology - [facility] [address] [place] [address] Viktoriya Adorno DO [address] [place] [address] 01/01/2025 1:30 PM EDT Appointment Radiology Department - [address] [address] documented as of this encounter Visit Diagnoses Not on filedocumented in this encounter Additional Health Concerns Infection Onset Date Last Indicated Resolved Time Respiratory Rule-Out 09/06/2024 09/06/2024 025 9:29 PM EST COVID-19 Rule-Out 09/06/2024 09/06/2024 09/06/2024 9:29 PM EST Influenza 09/06/2024 09/06/2024 documented as of this encounter Care Teams Optical Instrument Inspector Relationship Specialty Start Date End Date Dar Starks MD [address] [place] [address] PCP - General Internal Medicine 10/20/21 documented as of this encounter
--- OUTSIDE RECORDS SUMMARY | 2024-09-28 14:56 | XMS_ITS | Encounter Summary ---
Author Organization [facility] Address [address] [place] [address] Care Team Providers Care Manager Of Product Name Role Phone Dar Starks MD Primary Care Provider [phone] Reason for Visit * Reason Comments Earache med review Encounter Details Date Type Department Care Team ([facility] Contact Info) Description 09/06/2024 2:45 PM EST Office Visit [facility] [address] [place] [phone] Dar Starks MD [address] [place] [id number] Primary hypertension (Primary Dx); Viral URI with cough; Moderate persistent asthma with exacerbation; Wheezing Social History Tobacco Use Types Packs/Day Years Used Date Smoking Tobacco: Never Smokeless Tobacco: Never Tobacco Cessation:Counseling Given: Not Answered Alcohol Use Standard Drinks/Week Comments Yes 0 (1 standard drink = 0.6 oz pur e alcohol) Comments No Sex and Gender Information Value Date Recorded Sex Assigned at Not on file Legal Sex Female 9:52 PM EST Gender Identity Not on file Sexual Orientation Not on file documented as of this encounter Last Filed Vital Signs Vital Sign Reading Time Taken Comments Blood Pressure 125/85 09/06/2024 3:02 PM EST Pulse 82 09/06/2024 2:42 PM EST Temperature - - Respiratory Rate - - Oxygen Saturation - - Inhaled Oxygen Concentration - - Weight 69.4 kg (153 lb) 09/06/2024 2:42 PM EST Height 175.3 cm (5' 9 ) 09/06/2024 2:42 PM EST Body Mass Index 22.59 09/06/2024 2:42 PM EST documented in this encounter Ordered Prescriptions Prescription Sig Dispense Quantity Refills Last Filled Start Date End Date amLODIPine (NORVASC) 5 mg tablet Take 1 tablet (5 mg total) by mouth 1 (one) time each day. 90 tablet 1 09/06/2024 predniSONE (DELTASONE) 20 mg tablet Take 1 tablet (20 mg total) by mouth 1 (one) time each day. 10 each 09/06/2024 documented in this encounter Progress Notes * Dar Starks MD - 09/06/2024 2:45 PM EST CHIEF COMPLAINT: Earache and med review IDENTIFIER: Mirta Kebede is a 63 y.o. old female who comes alone. HPI: Mirta Kebede is a 63 y.o. year old female who is here for a routine follow up and med review. Patient's medical history is significant for HTN and asthma. Patient was last seen in office on 09/16/2023 medication review. Please see the note for details. Patient reports that she is doing well but is concerned about her viral URI symptoms. Patient reports that she was seen at different urgent care 3 weeks ago because of left ear ache but that symptom has resolved after treatment with steroid. Patient now reports that since 1 week she has been havingcough and wheezing along with mild fever. She does have underlying asthma for which she follows with pulmonology and is currently on Pulmicort inhaler and albuterol inhaler as needed. Patient states that she has noticed wheezing but denies any shortness of breath. Hypertension: Blood pressure was initially elevated but on manual repeat 5 minutes later it was within normal range. She is currently on amlodipine 5 mg daily and due for refill. Denies any chest pain, shortness of breath, headache, palpitations or lower leg edema. ROS: GENERAL: No malaise, significant weight loss or fever HEENT: No changes in hearing or vision, nose bleeds or other nasal problems RESPIRATORY: Reports cough and wheezing but denies shortness of breath. CARDIOVASCULAR: No chest pain, leg swelling or palpitations GI: No abdominal discomfort, blood in stools or black stools NECK: No lumps, goiter, pain or significant neck swelling : No dysuria, frequency or incontinence MUSCULOSKELETAL: No joint pain or swelling, back pain, or muscle pain. 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 Mild ascending aorta dilatation (CMS/HCC) 06/10/2022 Insomnia 08/30/2021 Hair loss 01/27/2021 Lung nodules 01/16/2021 Anxiety 11/08/2020 Asthma 09/09/2020 Thoracic aortic ectasia (CMS/HCC) 12/21/2019 Cervicalgia 09/05/2019 Hypertension 09/05/2019 Contact dermatitis 10/07/2018 Cystocele with rectocele 03/01/2018 Diastasis recti 02/28/2018 Facial rhytids 02/28/2018 ACTIVE MEDICATIONS: Outpatient Medications Marked as Taking for the 09/06/24 encounter (Office Visit) with Dar Starks MD Medication Sig Dispense Refill amitriptyline (ELAVIL) 25 mg tablet amLODIPine (NORVASC) 5 mg tablet Take 1 tablet (5 mg total) by mouth 1 (one) time each day. 90 tablet 1 budesonide (PULMICORT) 1 mg/2 mL nebulizer solution cyclobenzaprine (FLEXERIL) 10 mg tablet Take 1 tablet (10 mg total) by mouth. estradioL (ESTRACE) 0.01 % (0.1 mg/gram) vaginal cream Apply 1g PV nightly for 2 weeks and then 1-2nights a week thereafter magnesium carb,citrate,oxide (Magnesium Complex) 300 mg magnesium tablet Take 300 mg by mouth at bedtime. - Oral omeprazole (PriLOSEC) [address] capsule Take 1 capsule (40 mg total) by mouth 1 (one) time each day.90 each 0 Premarin 0.9 mg tablet Take 1 tablet (0.9 mg total) by mouth 1 (one) time each day. 30 tablet 0 SPIRONOLACTONE ORAL Take by mouth [DISCONTINUED] acetaminophen-codeine (TYLENOL #3) 300-30 mg per tablet [DISCONTINUED] amLODIPine (NORVASC) 5 mg tablet Take 1 tablet (5 mg total) by mouth 1 (one) time each day. 90 tablet 0 [DISCONTINUED] delmer jqu-seo-G7-Og-hjb-aly-bor 250-40-125 mg-mg-unit tablet Magnesium 250 MG Oral Tablet TAKE 1 TABLET DAILY. Quantity: 30; Refills: 6 Active [DISCONTINUED] diphenhydrAMINE-acetaminophen (Tylenol PM Extra Strength) 25-500 mg per tablet Tylenol PM Extra Strength TABS TAKE 2 TABLETS AT BEDTIME. Refills: 0 Active ALLERGIES: Shellfish containing products, Adhesive, and Aspirin PHYSICAL EXAM: Visit Vitals BP 125/85 (BP Location: Right arm) Pulse 82 Ht 1.753 m (69 ) Wt 69.4 kg (153 lb) BMI 22.59 kg/m?? OB Status Hysterectomy Smoking Status Never BSA 1.84 m?? APPEARNCE: well appearing, awake, alert, in no acute distress EYES: PERRL, conjunctiva and sclera normal NOSE/SINUS: negative MOUTH/THROAT: no erythema or exudates NECK: Supple without any adenopathy HEART: regular rate, regular rhythm and no murmur RESPIRATORY: Coarse breath sounds with wheezing bilaterally. EXTREMITIES: No edema and Normal pulses bilaterally. NEURO: Awake, alert and oriented x 3, Normal gait and No involuntary motions. SKIN: No rashes or lesions. IMPRESSION: 1. Primary hypertension Basic metabolic panel 2. Viral URI with cough Respiratory virus panel molecular study XR Chest 2 Views 3. Moderate persistent asthma with exacerbation XR Chest 2 Views 4. Wheezing XR Chest 2 Views PLAN: Hypertension: Blood pressure is well-controlled. Recommend to continue with amlodipine 5 mg daily. Refill provided today. Will check electrolytes and kidney function today. Asthma exacerbation: Recommend patient to continue with Pulmicort 1 puff twice a day along with albuterol inhaler every 4 hours as needed for wheezing. Will also treat patient with prednisone 20 mg twice daily for 5 days. Prescription sent to patient's pharmacy. Will also get chest x-ray to rule out pneumonia. Viral URI: Symptomatic care discussed with the patient. Will get respiratory panel to see if patient is positive for flu or other viruses. Continue with symptomatic care. Follow-up in 6 months for med review. ADDITIONAL ORDERS: None Today's documentation was made using voice recognition software.This note may contain grammatical errors secondary to this software. MD Dar Arndt MD on 09/06/2024 at 3:09 PM EST documented in this encounter Plan of Treatment Upcoming Encounters Date Type Department Care Team (Late st Contact Info) Description 11/01/2024 10:30 AM EDT [facility] [address] [place] [phone] Tila Viktoriya, DO [address] [place] [address] 01/01/2025 1:30 PM EDT Appointment Radiology Department - [address] [phone] Scheduled Orders Name Type Priority Associated Diagnoses Orde r Schedule Basic metabolic panel Lab Routine Primary hypertension 1 Occurrences starting 09/06/2024 until 09/06/2025 documented as of this encounter Procedures Procedure Name Priority Date/Time Associated Diagnosis Comments RESPIRATORY VIRUS PANEL MOLECULAR STUDY Routine 09/06/2024 4:01 PM EST Viral URI with cough documented in this encounter Results * (ABNORMAL) Respiratory virus panel molecular study (09/06/2024 4:01 PM EST) Adenovirus Detection by PCR Not Detected Not Detected LAB MICROBIOLOGY METHOD 09/06/2024 9:29 PM [facility] Influenza B PCR Not Detected Not Detected LAB MICROBIOLOGY METHOD 09/06/2024 9:29 PM [facility] Coronavirus 229E Not Detected Not Detected LAB MICROBIOLOGY METHOD 09/06/2024 9:29 PM [facility] Coronavirus HKU1 Not Detected Not Detected LAB MICROBIOLOGY METHOD 09/06/2024 9:29 PM [facility] Coronavirus OC43 Not Detected Not Detected LAB MICROBIOLOGY METHOD 09/06/2024 9:29 PM [facility] Coronavirus NL63 Not Detected Not Detected LAB MICROBIOLOGY METHOD 09/06/2024 9:29 PM [facility] Parainfluenza Virus 1 Not Detected Not Detected LAB MICROBIOLOGY METHOD 09/06/2024 9:29 PM [facility] Parainfluenza Virus 2 Not Detected Not Detected LAB MICROBIOLOGY METHOD 09/06/2024 9:29 PM [facility] Parainfluenza Virus 3 Not Detected Not Detected LAB MICROBIOLOGY METHOD 09/06/2024 9:29 PM [facility] Parainfluenza Virus 4 Not Detected Not Detected LAB MICROBIOLOGY METHOD 09/06/2024 9:29 PM [facility] RSV PCR Not Detected Not Detected LAB MICROBIOLOGY METHOD 09/06/2024 9:29 PM [facility] Human Metapneumovirus A and B Not Detected Not Detected LAB MICROBIOLOGY METHOD 09/06/2024 9:29 PM [facility] Rhinovirus/Entero virus Not Detected Not Detected LAB MICROBIOLOGY METHOD 09/06/2024 9:29 PM [facility] Bordetella pertussis Not Detected Not Detected LAB MICROBIOLOGY METHOD 09/06/2024 9:29 PM [facility] Bordetella parapertussis Not Detected Not Detected LAB MICROBIOLOGY METHOD 09/06/2024 9:29 PM [facility] Influenza A H1N1 PDM09 Detected(A ) Not Detected LAB MICROBIOLOGY METHOD 09/06/2024 9:29 PM [facility] Mycoplasma pneumo by PCR Not Detected Not Detected LAB MICROBIOLOGY METHOD 09/06/2024 9:29 PM [facility] Chlamydia pneumoniae Not Detected Not Detected LAB MICROBIOLOGY METHOD 09/06/2024 9:29 PM [facility] SARS COV-2 Not Detected Not Detected LAB MICROBIOLOGY METHOD 09/06/2024 9:29 PM [facility] Swab Both anterior nares / Unknown Non-blood Collection / Unknown 09/06/2024 4:01 PM EST 09/06/2024 4:03 PM [facility] - 09/06/2024 9:29 PM EST Testing was performed using the Dot Respiratory Pathogen PCR Assay. All results must be correlated with the clinical findings. Results should not be used as the sole basis for diagnosis. False Negative results may occur from the presence of sequence variants in the region targeted by the assay or the presence of inhibitors. Results may be affected by concurrent antiviral/antimicrobial therapy or levels of organisms that are below the limit of detection. Dar Starks MD LAB MICROBIOLOGY - [facility] Final Result [facility] [address] [place] [address], [place] [phone] * XR Chest 2 Views (09/06/2024 3:10 [...] Signed Date: 09/06/2024 15:27 ET Workstation ID: [id number] Transcribed By: Self Edit Transcribed Date: 09/06/2024 [...] Signed Date: 09/06/2024 15:27 ET Workstation ID: [id number] Transcribed By: Self Edit Transcribed Date: 09/06/2024 15:26 ET Dar Starks MD IMG XR PROCEDURES Final Result documented in this encounter Visit Diagnoses Diagnosis Primary hypertension- Primary Unspecified essential hypertension Viral URI with cough Moderate persistent asthma with exacerbation Unspecified asthma, with exacerbation Wheezing Viral URI with cough Moderate persistent asthma with exacerbation Unspecified asthma, with exacerbation Wheezing documented in this encounter Discontinued Medications Medication Sig Discontinue Reason Start Date End Da te diphenhydrAMINE-aceta minophen (Tylenol PM Extra Strength) 25-500 mg per tablet Tylenol PM Extra Strength TABS TAKE 2 TABLETS AT BEDTIME. Refills: 0 Active Discontinued by another clinician 09/06/2024 demler [id number]-[id number]-endoscope technician-man -bor 250-40-125 mg-mg-unit tablet Magnesium 250 MG Oral Tablet TAKE 1 TABLET DAILY. Quantity: 30; Refills: 6 Active Discontinued by another clinician 09/06/2024 amLODIPine (NORVASC) 5 mg tablet Take 1 tablet (5 mg total) by mouth 1 (one) time each day. Discontinued by another clinician 06/26/2024 09/06/2024 acetaminophen-codeine (TYLENOL #3) 300-30 mg per tablet Discontinued by another clinician 10/05/2023 09/06/2024 amoxicillin-clavulana te (AUGMENTIN) 875-125 mg per tablet Discontinued by another clinician 10/05/2023 09/06/2024 doxycycline (ADOXA) 100 mg tablet Discontinued by another clinician 03/02/2024 09/06/2024 acetaminophen-codeine (TYLENOL #3) 300-30 mg per tablet Discontinued by another clinician 10/05/2023 09/06/2024 celecoxib (CeleBREX) 100 mg capsuleIndications:CM C arthritis Take 1 capsule (100 mg total) by mouth 2 (two) times a day. Discontinued by another clinician 07/24/2024 09/06/2024 documented as of this encounter Additional Health Concerns Infection Onset Date Last Indicated Resolved Time Respiratory Rule-Out 09/06/2024 09/06/2024 025 9:29 PM EST COVID-19 Rule-Out 09/06/2024 09/06/2024 09/06/2024 9:29 PM EST documented as of this encounter Care Teams Manager Of Product Relationship Specialty Start Date End Date Dar Starks MD [address] [place] [address] PCP - General Internal Medicine 10/20/21 documented as of this encounter
--- OUTSIDE RECORDS SUMMARY | 2024-09-28 14:56 | XMS_ITS | Encounter Summary ---
Author Organization [facility] Address [address] [place] [address] Care Team Providers Care Certified Emergency Vehicle Technician Name Role Phone Dar Starks MD Primary Care Provider [phone] Reason for Visit * Reason Comments Earache Left side // over a month of pain Encounter Details Date Type Department Care Team (Latest Contact Info) Description 09/13/2024 3:30 PM EST Office Visit [facility] [address] [phone] Bella Green PA-C [address] [place] [id number] Arthralgia of left temporomandibular joint (Primary Dx); Dysfunction of left eustachian tube; Left ear pain Social History Tobacco Use Types Packs/Day Years Used Date Smoking Tobacco: Unknown Tobacco Cessation:Counseling Given: Not Answered Alcohol Use Standard Drinks/Week Comments Never 0 (1 standard drink = 0.6 oz pur e alcohol) Sex and Gender Information Value Date Recorded Sex Assigned at Female 09/07/2024 10:06 AM EST Gender Identity Female 09/07/2024 10:06 AM EST Sexual Orientation Choose not to disclose 2024 10:06 AM EST documented as of this encounter Last Filed Vital Signs Vital Sign Reading Time Taken Comments Blood Pressure - - Pulse - - Temperature - - Respiratory Rate - - Oxygen Saturation - - Inhaled Oxygen Concentration - - Weight 68 kg (150 lb) 09/13/2024 3:26 PM EST Height 175.3 cm (5' 9 ) 09/13/2024 3:26 PM EST Body Mass Index 22.15 09/13/2024 3:26 PM EST documented in this encounter Progress Notes * Bella Green PA-C - 09/13/2024 3:30 PM EST Images from the original note were not included. [address] [facility] [address] Loc: [phone] Encounter Date: 09/13/2024 History of Present Illness: Mirta Kebede is a 63 y.o. female who presents today for Chief Complaint Patient presents with Earache Left side // over a month of pain . Her symptoms started about 4-5 weeks ago. Initially she thought she had a TMJ issue for about 1 week. Then she developed facial pain. She got a stabbing pain in the left ear that went up to the mormon. She went to urgent care 3 times and her PCP. It was throbbing severely at one point . Currentlythe left ear is about 4-5/10. No change in hearing or baseline tinnitus. Heat would distract her from the pain. Laying on it made it worse. She was recommended to use nasal spray, claritin and nasal spray. Her glands feel swollen to her. She was positive for flu a couple weeks ago. She a chronically runny/stuffy nose. The congestion switches side. The nasal sprays burn so she doesn't use anything regularly. Physical Exam ENT Physical Exam Constitutional Appearance: patient appears well-developed and well-nourished, Communication/Voice: vocal quality normal; Head and Face Appearance: head appears normal and face appears atraumatic; Palpation: no sinus tenderness present; TMJ crepitus (left) noted; TMJ not tender bilaterally; Salivary: glands normal; Ear Auricles: right auricle normal; left auricle normal; Ear Canals: right ear canal normal; left ear canal normal; Tympanic Membranes: right tympanic membrane normal; left tympanic membrane normal; Nose External Nose: nares patent bilaterally; nasal discharge not visible; Internal Nose: nasal mucosa normal; septum normal; bilateral inferior turbinates normal; Oral Cavity/Oropharynx Lips: normal; Teeth: no trismus noted; Gums: gingiva normal; Tongue: normal; Oral mucosa: normal; Hard palate: normal; Soft palate: normal; Tonsils: normal; Base of Tongue: normal; Posterior pharyngeal wall: normal; Nasopharynx/Hypopharynx/Larynx Nasopharynx Findings: Nasopharynx comments: mucus from the left eustachian tube Hypopharynx: Piriform sinuses normal; hypopharyngeal wall normal; Hypopharynx comments: mild pachydermia Larynx Findings: bilateral true vocal cords normal; Neck Neck: neck normal; neck palpation normal; normal range of motion; Respiratory Inspection: breathing unlabored; Lymphatic Palpation: lymph nodes normal; Neurovestibular Mental Status: alert and oriented; Psychiatric: mood normal; affect is appropriate; Cranial Nerves: cranial nerves intact; Visit Orders. 1. Arthralgia of left temporomandibular joint - predniSONE (DELTASONE) 20 MG tablet; 2 tabs with breakfast for 2 days, 1 tab with breakfast for 2days. With food. Dispense: 6 tablet; Refill: 0 2. Dysfunction of left eustachian tube 3. Left ear pain - predniSONE (DELTASONE) 20 MG tablet; 2 tabs with breakfast for 2 days, 1 tab with breakfast for 2days. With food. Dispense: 6 tablet; Refill: 0 Past Medical History History reviewed. No pertinent past medical history. History reviewed. No pertinent surgical history. History reviewed. No pertinent family history. Social History Tobacco Use Smoking status: Unknown Substance Use Topics Alcohol use: Never Drug use: Never Medication List Current Outpatient Medications: amLODIPine (NORVASC) 5 MG tablet, Take 5 mg by mouth daily., Disp: , Rfl: budesonide (PULMICORT) 1 mg/2 mL nebulizer solution, 1 mg., Disp: , Rfl: diphenhydrAMINE-acetaminophen (Tylenol PM Extra Strength) 25-500 MG Tab, 1 tablet., Disp: , Rfl: MANGANESE GLUCONATE PO, Magnesium 250 MG Oral Tablet TAKE 1 TABLET DAILY. Quantity: 30; Refills: 6 Active, Disp: , Rfl: minoxidil (LONITEN) 2.5 MG tablet, 45 tablet, 0 Refill(s), 0 Refills, 07/24/24 1:01:00 PM EST, Partial fill upon patient request if the prescription is for a schedule II opioid drug., Disp: , Rfl: OMEprazole (PriLOSEC) 40 MG capsule, Take 40 mg by mouth., Disp: , Rfl: Premarin 0.9 MG tablet, Take 0.9 mg by mouth., Disp: , Rfl: predniSONE (DELTASONE) 20 MG tablet, 2 tabs with breakfast for 2 days, 1 tab with breakfast for 2 days. With food., Disp: 6 tablet, Rfl: 0 Allergies Allergies Allergen Reactions Aspirin Nausea And Vomiting and GI Intolerance/Nausea/Vomiting stomach upset only Procedure Laryngoscopy: Topical lidocaine and phenylephrine were applied to the bilateral nasal cavities. Flexible scope passed through the left nasal cavity to evaluate the larynx and pharynx. Nasopharynx: mucus from the eustachian tube Base of tongue: normal Vallecula: normal Supraglottis: normal Glottis: normal motion, no lesions Postcricoid space: normal, mild pachydermia Hypopharynx: normal Posterior pharyngeal wall: normal Scope removed. Patient tolerated procedure well. Assessment & Plan Mirta was seen today for earache. Diagnoses and all orders for this visit: Arthralgia of left temporomandibular joint - predniSONE (DELTASONE) 20 MG tablet; 2 tabs with breakfast for 2 days, 1 tab with breakfast for 2days. With food. Dysfunction of left eustachian tube Left ear pain - predniSONE (DELTASONE) 20 MG tablet; 2 tabs with breakfast for 2 days, 1 tab with breakfast for 2days. With food. Mirta presents with approximately 1 month of left ear pain. Her ear exam is normal although she reports some sensitivity of the canal. She has clicking of the left TMJ. Tympanogram could not obtain a seal on the left and was type a on the right. Laryngoscopy was performed to evaluate for any referred pain from the throat. Mucus was noted from the eustachian tube on the left. We discussed treatment options and I recommended a short burst of prednisone as this will help with any TMJ problems andthe eustachian tube dysfunction. She will try the Flonase 1 spray daily since she had burning with it in the past. I recommended auto insufflation. For the TMJ, she will have soft foods and apply heat and massage. Follow-up in 2 weeks to reassess her symptoms. Will consider imaging if her pain persists. Bella Green PA-C documented in this encounter Plan of Treatment Upcoming Encounters Date Type Department Care Team (Late st Contact Info) Description 09/29/2024 11:30 AM EST Office Visit [facility] [address] [place] [phone] Bella Green PA-C [address] [place] [address] documented as of this encounter Visit Diagnoses Diagnosis Arthralgia of left temporomandibular joint- Primary Dysfunction of left eustachian tube Left ear pain Unspecified otalgia documented in this encounter Care Teams Certified Emergency Vehicle Technician Relationship Specialty Start Date End Date Dar Starks MD [address] [place] [id number] PCP - General Internal Medicine 09/13/24 documented as of this encounter
--- OUTSIDE RECORDS SUMMARY | 2024-09-28 14:56 | XMS_ITS | Clinical Summary ---
Author Organization Formerly [facility] Address [address] [place] [address] Care Team Providers Care Art Museum Aide Name Role Phone Dar Straks MD Primary Care Provider [phone] Allergies Active Allergy Reactions Criticality Noted Date Comments Aspirin Nausea And Vomiting, GI Intolerance/Nausea/Vomitin g Low 02/28/2018 stomach upset only Medications Medication Sig Dispensed Refills Start Date End Date Status amLODIPine (NORVASC) 5 MG tablet Take 5 mg by mouth daily. 09/06/2024 Active budesonide (PULMICORT) 1 mg/2 mL nebulizer solution 1 mg. 10/17/2023 Active diphenhydrAMINE-acetami nophen (Tylenol PM Extra Strength) 25-500 MG Tab 1 tablet. Active Premarin 0.9 MG tablet Take 0.9 mg by mouth. 09/01/2024 Active MANGANESE GLUCONATE PO Magnesium 250 MG Oral Tablet TAKE 1 TABLET DAILY. Quantity: 30; Refills: 6 Active Active minoxidil (LONITEN) 2.5 MG tablet 45 tablet, 0 Refill(s), 0 Refills, 07/24/24 1:01:00 PM EST, Partial fill upon patient request if the prescription is for a schedule II opioid drug. 06/08/2024 Active OMEprazole (PriLOSEC) 40 MG capsule Take 40 mg by mouth. 08/04/2024 Active predniSONE (DELTASONE) 20 MG tabletIndications:Arthr algia of left temporomandibular joint,Left ear pain 2 tabs with breakfast for 2 days, 1 tab with breakfast for 2 days. With food. 6 tablet 09/13/2024 Active Active Problems No known active problems Encounters Date Type Department Care Team Description 09/13/2024 3:30 PM EST Office Visit [facility] [address] [place] [phone] Bella Geren PA-C Arthralgia of left temporomandibular joint (Primary Dx); Dysfunction of left eustachian tube; Left ear pain from Last 3 Months Social History Tobacco Use Types Packs/Day Years [...] not to disclose 2024 10:06 AM EST Last Filed Vital Signs Vital Sign Reading Time Taken Comments Blood Pressure - - Pulse - - Temperature - - Respiratory Rate - - Oxygen Saturation - - Inhaled Oxygen Concentration - - Weight 68 kg (150 lb) 09/13/2024 3:26 PM EST Height 175.3 cm (5' 9 ) 09/13/2024 3:26 PM EST Body Mass Index 22.15 09/13/2024 3:26 PM EST Plan of Treatment Upcoming Encounters Date Type Department Care Team (Late st Contact Info) Description 09/29/2024 11:30 AM EST Office Visit [facility] [address], [place] [address] Bella Green PA-C [address] [place] [address] Health Maintenance Due Date Last Done Comments Hepatitis C Virus Screening 1960 HIV Screening 10/25/1971 DTaP/Tdap/Td Vaccines (1 - Tdap) 1977 Pap Smear (Ages 21-65) 10/25/1979 Mammogram 1998 Colonoscopy 10/25/2003 Pneumococcal Vaccines 50+ (1 of 1 - PCV) 2008 Zoster (Shingles) Vaccine (1 of 2) 2008 DXA Bone Density (Females,Ages 65 and older) 10/25/2023 Influenza Vaccine 03/02/2024 06/02/2021, 05/31/2013 COVID-19 Vaccine (2 - 2024-2 5 season) 2024 06/02/2021 RSV Vaccine 60 years and older and Patients (1 - 1-dose 75+ series) 2033 Hepatitis B Vaccines Aged Out No long er eligible based on patient's age to complete this topic Care Teams Art Museum Aide Relationship Specialty Start Date End Date Dar Starks MD [address] [place] [address] [place] [address] PCP - General Internal Medicine 09/13/24
--- OUTSIDE RECORDS SUMMARY | 2024-09-28 14:56 | XMS_ITS | Clinical Summary ---
Author Organization [facility] Address [address] [place] [address] Care Team Providers Care Data Collection Technician Name Role Phone Unknown, Primary Care Provider Unavailabl e Social History Tobacco Use Types Packs/Day Years Used Date Smoking Tobacco: Never Assessed Sex and Gender Information Value Date Recorded Sex Assigned at Not on file Gender Identity Not on file Sexual Orientation Not on file Job Start Date Occupation Industry Not on file Not on file Not on file Plan of Treatment Health Maintenance Due Date Last Done Comments Hepatitis C Screening 1958 Depression Screening 1970 Preventative Health Evaluation 1976 Cervical Cancer Screening (Pap Smear) 10/25/1979 Colon Cancer Screening (Colonoscopy) 10/25/2003 Breast Cancer Screening (Mammogram) 2008 Shingrix-Zoster Vaccine (1 o f 2) 2008 Fall Risk Assessment 10/25/2023 Osteoporosis Screening (DEXA Scan) 10/25/2023 Pneumococcal Vaccine (1 of 1 - PCV) 10/25/2023 COVID-19 Vaccine (4 - 2023-2 5 season) 2024 06/02/2021, 09/27/2020, 09/06/2020 Influenza Vaccine (#1) 2024 DTap / Tdap / Td (2 - Td or Tdap) 08/28/2031 08/28/2021 RSV Adult > 60+ Yrs or (1 - 1-dose 75+ series) 2033 Hepatitis B Vaccines Aged Out No long er eligible based on patient's age to complete this topic Pneumococcal Vaccine Aged Out No long er eligible based on patient's age to complete this topic RSV Ped < 20 months Aged Out No longe r eligible based on patient's age to complete this topic Care Teams Data Collection Technician Relationship Specialty Start Date End Date Unknown, PCP - General 07/08/22
--- OUTSIDE RECORDS SUMMARY | 2024-09-28 14:57 | XMS_ITS | Referral Summary ---
Author Organization [facility] Address [address] [place] [address] Care Team Providers Care Rn Integrated Name Role Phone Anum Starks Primary Care Provider [phone] Allergies Active Allergy Reactions Criticality Noted Date Comments Aspirin Vomiting 03/02/2024 stomach upset only Shellfish Derived Swelling High Medications delmer [id number] 250-40-125 mg-mg-unit tablet Magnesium 250 MG Oral Tablet TAKE 1 TABLET DAILY. Quantity: 30; Refills: 6 Active Active diphenhydrAMINE -acetaminophen (Tylenol PM Extra Strength) 25-500 mg tablet Tylenol PM Extra Strength TABS TAKE 2 TABLETS AT BEDTIME. Refills: 0 Active Active amitriptyline (ELAVIL) 25 mg tablet 4 Active minoxidiL (LONITEN) 2.5 mg tabletIndicatio ns:Androgenetic alopecia Take 1.25mg half a tablet once daily 45 tablet 3 4 Active spironolactone (ALDACTONE) 50 mg tabletIndicatio ns:Androgenetic alopecia Take 2 tablet by mouth daily at bedtime. 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 Throat pain 02/28/2013 Tick bites 01/04/2013 Acute pharyngitis 01/04/2013 Lyme disease 09/18/2012 Hypertension 09/18/2012 Immunizations Immunization Administration Dates Next Due INFLUENZA, SPLIT VIRUS, TRIVALENT, PF 05/31/2013 Social History Tobacco Use Types Packs/Day Years Used Date Smoking Tobacco: Never Passive Smoke Exposure: Never Smokeless Tobacco: Never Comments:: Alcohol Use Standard Drinks/Week Comments Yes 0 (1 standard drink = 0.6 oz pur e alcohol) Comments Unknown Sex and Gender Information Value Date Recorded Sex Assigned at Female 11/12/2023 10:48 AM EDT Legal Sex Female 12:00 AM EDT Gender Identity Female 06/07/2024 3:56 PM EST Sexual Orientation Straight 06/07/2024 3: 56 PM EST Last Filed Vital Signs Vital Sign Reading Time Taken Comments Blood Pressure 157/95 03/02/2024 10:53 AM EDT Pulse 72 04/03/2015 2:29 PM EDT Temperature 36.1 ??C (97 ??F) 01/04/2014 4:06 PM EDT Respiratory Rate - - Oxygen Saturation - - Inhaled Oxygen Concentration - - Weight 68 kg (150 lb) 04/03/2015 2:29 PM EDT Height 177.8 cm (5' 10 ) 05/02/2014 9:23 AM EDT Body Mass Index 21.52 05/02/2014 9:23 AM EDT Plan of Treatment Upcoming Encounters Date Type Department Care Team (Late st Contact Info) Description 03/06/2025 10:15 AM EDT Follow-Up [facility] 4th Floor [address], [place] [address] Rivet Maker: Yunior Baker NP [address] [place] [address] Procedures * Due to [place] [employer] law, this organization might not be sharing negative HIV tests. Procedure Name Priority Date/Time Associated Diagnosis Comments BASIC METABOLIC PANEL Routine 03/02/2024 11:55 AM EDT High risk medication use from Last 3 Months or Most Recently Relevant to Health Maintenance Results * Due to [place] [employer] law, this organization might not be sharing negative HIV tests. * Basic Metabolic Panel (03/02/2024 11:55 AM EDT) NA 138 135 - 145 mmol/L 03/02/2024 1:27 PM EDT [facility] K 4.3 3.5 - 5.3 mmol/L 03/02/2024 1:27 PM EDT [facility] Cl 104 98 - 107 mmol/L 03/02/2024 1:27 PM EDT [facility] CO2 24 24 - 32 mmol/L 03/02/2024 1:27 PM EDT [facility] BUN 14 7 - 23 mg/dL 03/02/2024 1:27 PM EDT [facility] Creatinine 0.86 0.50 - 1.20 mg/dL 03/02/2024 1:27 PM EDT [facility] Glucose 96 65 - 99 mg/dL 03/02/2024 1:27 PM EDT [facility] Calcium 9.7 8.6 - 10.5 mg/dL 03/02/2024 1:27 PM EDT [facility] Anion Gap 10 5 - 15 [facility] 03/02/2024 1:27 PM EDT [facility] eGFR 75 >=60 mL/min/1. 73m2 [facility] MANUAL 03/02/2024 1:27 PM EDT [facility] Comment:The estimated glomer ular filtration rate (eGFR) is calculated using a new formula developed by the NKF-ASN task force to eliminate race-based correction factors. The new formula uses serum/plasma creatinine, age, and gender to determine eGFR. A value below 60mls/min might indicate kidney disease and will be flagged. For additional information, see Baldemar et al, Am J Kidney Dis. 2021;79(2):268- 288, A Unifying Approach for GFR estimation: Recommendations of the NKF-ASN Task Force on Reassessing the Inclusion of Race in Diagnosing Kidney Disease . Blood Structure of peripheral vein / Unknown Venipuncture / Unknown 03/02/2024 11:55 AM EDT 03/02/2024 11:55 AM EDT Yunior Rutledge PATIENT REGISTRATION SUPERVISOR LAB BLOOD ORDERABLES Final R esult [facility] [address] [place] [address], from Last 3 Months or Most Recently Relevant to Health Maintenance [place] [address] [address] [employer] Care Teams Rn Integrated Relationship Specialty Start Date End Date Anum Starks [address] [place] [address] PCP - General Internal Medicine 11/12/23
--- OUTSIDE RECORDS SUMMARY | 2024-09-28 14:57 | XMS_ITS | Clinical Summary ---
Author Organization [facility] [address] [place] [address] [place] [phone] Phone Care Team Providers Care Sand Technician Name Role Phone Dar Starks MD Primary Care Provider [phone] Allergies Active Allergy Reactions Criticality Noted Date Comments Adhesive 09/05/2019 Dermabond caused rash Aspirin Nausea And Vomiting 02/28/2018 stomach upset only Shellfish Containing Products Swelling High 07/24/2024 Other Reaction(s): eyes swell shut Medications albuterol HFA (PROAIR HFA ; PROVENTIL HFA ; VENTOLIN HFA) 90 mcg/actuation inhaler Inhale 2 puffs by mouth. 03/26/20 22 Active amitriptyline (ELAVIL) 25 mg tablet 09/15/19 24 Active budesonide (PULMICORT) 1 mg/2 mL nebulizer solution 10/17/19 24 Active cyclobenzaprin e (FLEXERIL) 10 mg tablet Take 1 tablet (10 mg total) by mouth. 09/16/19 24 Active estradioL (ESTRACE) 0.01 % (0.1 mg/gram) vaginal cream Apply 1g PV nightly for 2 weeks and then 1-2 nights a week thereafter 07/07/20 22 Active magnesium carb,citrate,o xide (Magnesium Complex) 300 mg magnesium tablet Take 300 mg by mouth at bedtime. - Oral Active SPIRONOLACTONE ORAL Take by mouth Active predniSONE (DELTASONE) 20 mg tablet Take 1 tablet (20 mg total) by mouth 1 (one) time each day. 10 each 09/06/19 25 Active amLODIPine (NORVASC) 5 mg tablet Take 1 tablet (5 mg total) by mouth 1 (one) time each day. 90 tablet 1 09/06/19 25 Active Premarin 0.9 mg tablet Take 1 tablet (0.9 mg total) by mouth 1 (one) time each day. 90 tablet 09/15/19 25 Active omeprazole (PriLOSEC) [address] capsule Take 1 capsule (40 mg total) by mouth 1 (one) time each day. 90 capsule 1 09/18/19 25 Active amLODIPine (NORVASC) 5 mg tablet Take 1 tablet (5 mg total) by mouth 1 (one) time each day. 90 tablet 06/26/20 24 025 Discontinued(Di scontinued by another clinician) acetaminophen- codeine (TYLENOL #3) 300-30 mg per tablet 10/05/19 24 025 Discontinued(Di scontinued by another clinician) diphenhydrAMIN E-acetaminophe n (Tylenol PM Extra Strength) 25-500 mg per tablet Tylenol PM Extra Strength TABS TAKE 2 TABLETS AT BEDTIME. Refills: 0 Active 025 Discontinued(Di scontinued by another clinician) amoxicillin-cl avulanate (AUGMENTIN) 875-125 mg per tablet 10/05/19 24 025 Discontinued(Di scontinued by another clinician) delmer vrb-adl-K3-Zn- copper etcher-man-bor 250-40-125 mg-mg-unit tablet Magnesium 250 MG Oral Tablet TAKE 1 TABLET DAILY. Quantity: 30; Refills: 6 Active 025 Discontinued(Di scontinued by another clinician) doxycycline (ADOXA) 100 mg tablet 03/02/20 24 025 Discontinued(Di scontinued by another clinician) celecoxib (CeleBREX) 100 mg capsuleIndicat ions:CMC arthritis Take 1 capsule (100 mg total) by mouth 2 (two) times a day. 60 each 07/24/20 24 025 Discontinued(Di scontinued by another clinician) omeprazole (PriLOSEC) [address] capsule Take 1 capsule (40 mg total) by mouth 1 (one) time each day. 90 each 08/04/19 25 025 Discontinued Premarin 0.9 mg tablet Take 1 tablet (0.9 mg total) by mouth 1 (one) time each day. 30 tablet 1 08/21/19 25 025 Discontinued(Re order) Premarin 0.9 mg tablet Take 1 tablet (0.9 mg total) by mouth 1 (one) time each day. 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 12/20 stable Cervicalgia 09/05/2019 Overview (08/07/2024): Botox injections; Dr Burns Hypertension 09/05/2019 Contact dermatitis 10/07/2018 Cystocele with rectocele 03/01/2018 Diastasis recti 02/28/2018 Facial rhytids 02/28/2018 Encounters Date Type Department Care Team Description 09/06/2024 3:04 PM EST - 09/06/2024 11:59 PM EST Hospital Encounter [facility]ray - [facility] [address] [place], [place] [phone] Viral URI with cough; Moderate persistent asthma with exacerbation; Wheezing Discharge Disposition: Home or Self Care 09/06/2024 2:45 PM EST Office Visit Plugging Machine Operator - [facility] [address] [place], [place] [phone] Dar Starks MD Primary hypertension (Primary Dx); Viral URI with cough; Moderate persistent asthma with exacerbation; Wheezing 08/28/2024 Telephone Plugging Machine Operator - [facility] [address] [place], [place] [phone] Dar Starks MD Earache 08/04/2024 Telephone Pediatric[facility] - [facility] [address] [facility] [place] [phone] Dar Starks MD Medication Problem 08/03/2024 10:51 AM EST - 08/03/2024 11:59 PM EST Hospital Encounter Radiology Department - [address] [phone] Abnormal mammogram Discharge Disposition: Home or Self Care 08/03/2024 10:50 AM EST - 08/03/2024 11:59 PM EST Hospital Encounter Radiology Department - [address] [phone] Abnormal mammogram Discharge Disposition: Home or Self Care 07/24/2024 10:00 AM EST Office Visit Orthopedic Surgery - [place] [address] [place] [phone] Jessica Rossi PA CMC arthritis (Primary Dx) 07/20/2024 2:39 PM EST - 07/20/2024 11:59 PM EST Hospital Encounter Radiology Department - [address] [phone] Encounter for screening mammogram for breast cancer Discharge Disposition: Home or Self Care 07/18/2024 Telephone Plugging Machine Operator - [facility] [address] [place], [place] [phone] Dar Starks MD Lyme Disease 07/14/2024 Telephone Plugging Machine Operator - [facility] [address] [facility] [place], [place] [phone] Dar Starks MD Labs Only 07/10/2024 Telephone Pediatrics - [facility] [address] [facility] [place], [place] [phone] Dar Starks MD Labs Only 07/03/2024 Telephone [facility] [place] [phone] Dar Starks MD Request For Order(s) from Last 3 Months Immunizations Name Administration Dates Next Due Influenza, Unspecified 06/02/2021 Pfizer SARS-CoV-2 COVID-19, mRNA, LNP-S, preservative free 06/02/2021 Tdap Tetanus diptheria acell ular pertussis (Boostrix; Adacel) 7yo and older 08/28/2021 Surgical History Surgery Date Site/Laterality Comments HERNIA REPAIR Right PROCEDURE: REPAIR INGUINAL HERNIA OTHER SURGICAL HISTORY PROCEDURE: ---- OTHER ----; COMMENT: tummy tuck OTHER SURGICAL HISTORY PROCEDURE: ---- OTHER ----; COMMENT: plastic facial surgery OTHER SURGICAL HISTORY PROCEDURE: ---- OTHER ----; COMMENT: bladder sling HYSTERECTOMY 1989 PROCEDURE: HISTORICAL HYSTERECTOMY; COMMENT: w/ BSO ANKLE SURGERY Right PROCEDURE: HISTORICAL ANKLE SURGERY; COMMENT: x2 (plate, subsequently removed) BREAST SURGERY PROCEDURE: [place] UNLISTED PROCEDURE BREAST; COMMENT: implants OTHER SURGICAL HISTORY PROCEDURE: IMPLANT BREAST SILICONE/EQ; COMMENT: 2009 Medical History Medical History Date Comments H/O breast augmentation 2009 DX:H/O b reast augmentation Family History Medical History Relation Name Comments Coronary artery disease Father smok er Heart attack Father Hyperlipidemia Father Hypertension Mother Breast cancer Other m. & p.aunts& p.aunts Other: scd Sister autopsy showed cardiomegaly Diabetes Neg Hx Other cancer Neg Hx Relation Name Status Comments Father Mother Other m. & p.aunts& p.aunts Alive Sister Social History Tobacco Use Types Packs/Day Years [...] on file Sexual Orientation Not on file Obstetrics History Para Term AB IAB SAB Ectopic Multiple Livin g Live Births 2 2 2 2 Date Outcome GA Total Labor Labor/2nd/3rd Weight Sex Type Anes PTL Radha A1 A5 Name Clin Term Term Last Filed Vital Signs Vital Sign Reading [...] Mass Index 22.59 09/06/2024 2:42 PM EST Plan of Treatment Upcoming Encounters Date Type Department Care Team (Late st Contact Info) Description 11/01/2024 10:30 AM EDT Office Visit Obstetrics and Gynecology - [facility] [address] [place] [phone] Viktoriya Adorno DO [address] [place] [address] 01/01/2025 1:30 PM EDT Appointment Radiology Department [address] [phone] Health Maintenance Due Date Last Done Comments Pneumococcal Vaccine: 50+ Years (1 of 2 - PCV) 1977 Pneumococcal Vaccine: Pediatrics (0 to 5 Years) and At-Risk Patients (6 to 64 Years) (1 of 2 - PCV) 1977 Cervical Cancer Screening: Pap Smear 10/25/1979 RSV Immunization Patients 60+ Years Old (1 - Risk 60-74 years 1-dose series) 2018 Depression Screening 07/11/2022 Social Influencers of Health Screening 07/11/2022 Falls Risk Assessment 10/25/2023 COVID-19 Vaccine ( season) 2024 05/12/2022, 01/02/2022, 06/02/2021, Additional history exists Influenza Vaccine (#1) 2024 , 07/21/2021, 06/02/2021, Additional history exists Hypertension/CHF/CAD Annual BMP Blood Test 03/02/2025 03/02/2024, 01/28/2023 Colorectal Cancer Screening: Colonoscopy 06/13/2026 06/13/2021 Breast Cancer Screening 08/03/2026 08/03/19, 07/20/2024, 07/15/2023, Additional history exists Cholesterol Screening (Lipid Panel) 06/11/2027 06/11/2022 DTaP,Tdap,and Td Vaccines (2 - Td or Tdap) 08/28/2031 08/28/2021 Osteoporosis Screening (Bone Density Screening) 12/01/2033 12/02/2023, 12/02/2023 Zoster Vaccines Completed 01/27/2021, 09/17/2020 Hepatitis C Screening Completed 02/04/2021 HIB Vaccines Aged Out No longer eligi ble based on patient's age to complete this topic HPV Vaccines Aged Out No longer eligi ble based on patient's age to complete this topic Hepatitis A Vaccines Aged Out No long er eligible based on patient's age to complete this topic Hepatitis B Vaccines Aged Out No long er eligible based on patient's age to complete this topic IPV Vaccines Aged Out No longer eligi ble based on patient's age to complete this topic MMR Vaccines Aged Out No longer eligi ble based on patient's age to complete this topic Meningococcal ACWY Vaccine Aged Out N o longer eligible based on patient's age to complete this topic Meningococcal B Vacine Aged Out No lo nger eligible based on patient's age to complete this topic RSV Immunization Patients Under 20 months Aged Out No longer eligible based on patient's age to complete this topic Varicella Vaccines Aged Out No longer eligible based on patient's age to complete this topic Procedures Procedure Name Priority Date/Time Associated Diagnosis Comments RESPIRATORY VIRUS PANEL MOLECULAR STUDY Routine 09/06/2024 4:01 PM EST Viral URI with cough XR CHEST 2 VIEWS Routine 09/06/2024 3:10 PM EST Viral URI with cough Moderate persistent asthma with exacerbation Wheezing LYME DISEASE PCR Routine 08/03/2024 3:24 PM EST US BREAST LIMITED LEFT Routine 08/03/2024 11:29 AM EST Abnormal mammogram MG MAMMO DIGITAL DIAGNOSTIC W FAM LEFT Routine 08/03/2024 11:01 AM EST Abnormal mammogram [place] ARTHROCENTESIS/ASPIR ATION/INJECTION SMALL JOINT/BURSA WO U/S GUIDANCE Routine 07/24/2024 10:00 AM EST CMC arthritis MG MAMMO DIGITAL SCREENING W FAM BILAT Routine 07/20/2024 3:02 PM EST Encounter for screening mammogram for breast cancer DXA BONE DENSITY STUDY 1+ SITS AXIAL SKEL Routine 12/02/2023 1:50 PM EDT Eosinophilic esophagitis ANNUAL BMP BLOOD TEST Routine 01/28/2023 LIPID PANEL Routine 06/11/2022 COLONOSCOPY Routine 06/13/2021 HEPATITIS C SCREENING Routine 02/04/2021 from Last 3 Months or Most Recently Relevant to Health Maintenance Results * (ABNORMAL) Respiratory virus panel molecular study (09/06/2024 4:01 PM EST) Adenovirus Detection by PCR Not Detected Not Detected LAB MICROBIOLOGY METHOD 09/06/2024 9:29 PM [facility] Influenza B PCR Not Detected Not Detected LAB MICROBIOLOGY METHOD 09/06/2024 9:29 PM [facility] Coronavirus 229E Not Detected Not Detected LAB MICROBIOLOGY METHOD 09/06/2024 9:29 PM [facility] Coronavirus HKU1 Not Detected Not Detected LAB MICROBIOLOGY METHOD 09/06/2024 9:29 PM [facility] Coronavirus OC43 Not Detected Not Detected LAB MICROBIOLOGY METHOD 09/06/2024 9:29 PM [facility] Coronavirus NL63 Not Detected Not Detected LAB MICROBIOLOGY METHOD 09/06/2024 9:29 PM [facility] Parainfluenza Virus 1 Not Detected Not Detected LAB MICROBIOLOGY METHOD 09/06/2024 9:29 PM [facility] Parainfluenza Virus 2 Not Detected Not Detected LAB MICROBIOLOGY METHOD 09/06/2024 9:29 PM [facility] Parainfluenza Virus 3 Not Detected Not Detected LAB MICROBIOLOGY METHOD 09/06/2024 9:29 PM [facility] Parainfluenza Virus 4 Not Detected Not Detected LAB MICROBIOLOGY METHOD 09/06/2024 9:29 PM [facility] RSV PCR Not Detected Not Detected LAB MICROBIOLOGY METHOD 09/06/2024 9:29 PM [facility] Human Metapneumovirus A and B Not Detected Not Detected LAB MICROBIOLOGY METHOD 09/06/2024 9:29 PM [facility] Rhinovirus/Entero virus Not Detected Not Detected LAB MICROBIOLOGY METHOD 09/06/2024 9:29 PM [facility] Bordetella pertussis Not Detected Not Detected LAB MICROBIOLOGY METHOD 09/06/2024 9:29 PM [facility] Bordetella parapertussis Not Detected Not Detected LAB MICROBIOLOGY METHOD 09/06/2024 9:29 PM [facility] Influenza A H1N1 PDM09 Detected(A ) Not Detected LAB MICROBIOLOGY METHOD 09/06/2024 9:29 PM [facility] Mycoplasma pneumo by PCR Not Detected Not Detected LAB MICROBIOLOGY METHOD 09/06/2024 9:29 PM [facility] Chlamydia pneumoniae Not Detected Not Detected LAB MICROBIOLOGY METHOD 09/06/2024 9:29 PM [facility] SARS COV-2 Not Detected Not Detected LAB MICROBIOLOGY METHOD 09/06/2024 9:29 PM [facility] Swab Both anterior nares / Unknown Non-blood Collection / Unknown 09/06/2024 4:01 PM EST 09/06/2024 4:[address] [facility] - 09/06/2024 9:29 PM EST Testing was performed using the IAMINTOITe Respiratory Pathogen PCR Assay. All results must [...] detection. Dar Starks MD LAB MICROBIOLOGY - GENERAL ORDRudy CARBALLO Final Result [facility] [address] [place] [address], * XR Chest 2 Views (09/06/2024 3:10 [...] Signed Date: 09/06/2024 15:27 ET Workstation ID: [id number] Transcribed By: Self Edit Transcribed Date: 09/06/2024 [...] Signed Date: 09/06/2024 15:27 ET Workstation ID: [id number] Transcribed By: Self Edit Transcribed Date: 09/06/2024 15:26 ET Dar Starks MD IMG XR PROCEDURES Final Result * Lyme disease, PCR (08/03/2024 3:24 PM EST) Blood Venous blood specimen / Unknown Historical Provider LAB BLOOD ORDERABLES Kelly l Result * US Breast Limited Left (08/03/2024 11:29 AM EST) Anatomical Region Laterality Modality Breast Left Ultrasound 08/03/2024 1:27 PM EST Impressions 08/03/2024 1:29 PM EST Benign ultrasound findings. ?6 month follow-up right breast mammogram suggested. BI-RADS CATEGORY: 3 - PROBABLY BENIGN RECOMMENDATION: Short Interval Follow-up is recommended for the right breast in 6 months. -------- FINAL REPORT -------- Dictated By: Jacqueline Rodriguez Dictated Date: 08/03/2024 13:27 ET Assigned Physician: Jacqueline Rodriguez Reviewed and Electronically Signed By: Jacqueline Rodriguez Signed Date: 08/03/2024 13:29 ET Workstation ID: [id number] Transcribed By: Self Edit Transcribed Date: 08/03/2024 13:27 ET Narrative 08/03/2024 1:29 PM EST CLINICAL: 63 years old, Female, focal asymmetry outer left breast. COMPARISON: Right breast diagnostic mammogram of the same day. ??Bilateral mammogram 07/20/2024. ?? TECHNIQUE: Ultrasound survey ??evaluation of the outer right breast. FINDINGS: There is no evidence of morphologically suspicious mass. ??No cyst or solid mass is visualized. ?? No axillary abnormality is visualized. ?? Procedure Note Jacqueline Rodriguez MD - 08/03/2024 CLINICAL: 63 years old, Female, focal asymmetry outer left breast. COMPARISON: Right breast diagnostic mammogram of the same day. Bilateralmammogram 07/20/2024. TECHNIQUE: Ultrasound survey evaluation of the outer right breast. FINDINGS: There is no evidence of morphologically suspicious mass. No cyst or solidmass is visualized. No axillary abnormality is visualized. IMPRESSION: Benign ultrasound findings. 6 month follow-up right breast mammogramsuggested. BI-RADS CATEGORY: 3 - PROBABLY BENIGN RECOMMENDATION: Short Interval Follow-up is recommended for the right breast in 6 months. -------- FINAL REPORT -------- Dictated By: Jacqueline Rodriguez Dictated Date: 08/03/2024 13:27 ET Assigned Physician: Jacqueline Rodriguez Reviewed and Electronically Signed By: Jacqueline Rodriguez Signed Date: 08/03/2024 13:29 ET Workstation ID: [id number] Transcribed By: Self Edit Transcribed Date: 08/03/2024 13:27 ET us Dra Starks MD IMG US PROCEDURES Final Result * MG Mammo Digital Diagnostic w Fam Left (08/03/2024 11:01 AM EST) Anatomical Region Laterality Modality Breast Left Mammography 08/03/2024 11:1 0 AM EST Impressions 08/03/2024 11:45 AM EST Probably benign. ??On the screening study, the focal asymmetry in the outer left breast has morphology suggestive of benign intramammary lymph node. ??This may be in the upper left breast on the screening MLO view. ??Follow-up left breast mammogram in 6 months suggested. ??Findings and recommendations were conveyed to the patient. ? BI-RADS CATEGORY: 3 - PROBABLY BENIGN RECOMMENDATION: Short Interval Follow-up is recommended for the left breast in 6 months. Short Interval Follow-up is recommended for the left breast in 6 months. Mammo Location: [facility], [address] [place] [address], [id number], . -------- FINAL REPORT -------- Dictated By: Jacqueline Rodriguez Dictated Date: 08/03/2024 11:10 ET Assigned Physician: Jacqueline Rodriguez Reviewed and Electronically Signed By: Jacqueline Rodriguez Signed Date: 08/03/2024 11:45 ET Workstation ID: [id number] Transcribed By: Self Edit Transcribed Date: 08/03/2024 11:20 ET Narrative 08/03/2024 11:45 AM EST CLINICAL: 63 years old, Female, focal asymmetry outer ??left breast on screening mammogram. ??Implants. ??The patient states that she has swollen lymph nodes in her neck and is currently being treated for line disease. COMPARISON: Mammogram 07/20/2024. ?? FINDINGS: MAMMOGRAPHY TECHNIQUE: ML, spot compression CC, and spot compression MLO views of the left breast were obtained digitally with 3-D mammogram (digital breast tomosynthesis). ??Computer-aided detection was utilized in evaluation of this exam (CAD). Focal asymmetry in the outer left breast is a persistent finding on the spot compression cc view. ??However, this is not identified on the other 2 views BREAST DENSITY: B - There are scattered areas of fibroglandular density. ULTRASOUND TECHNIQUE: Ultrasound survey ??evaluation of the outer left breast was performed. ??The upper outer and lower-outer quadrants were examined. There is no evidence of morphologically suspicious mass. ??No cyst or solid mass is visualized. ?? No axillary abnormality is visualized. ?? Procedure Note Jacqueline Rodriguez MD - 08/03/2024 CLINICAL: 63 years old, Female, focal asymmetry outer left breast onscreening mammogram. Implants. The patient states that she has swollenlymph nodes in her neck and is currently being treated for line disease. COMPARISON: Mammogram 07/20/2024. FINDINGS: MAMMOGRAPHY TECHNIQUE: ML, spot compression CC, and spot compression MLO views of theleft breast were obtained digitally with 3-D mammogram (digital breasttomosynthesis). Computer-aided detection was utilized in evaluation ofthis exam (CAD). Focal asymmetry in the outer left breast is a persistent finding on thespot compression cc view. However, this is not identified on the other 2views BREAST DENSITY: B - There are scattered areas of fibroglandular density. ULTRASOUND TECHNIQUE: Ultrasound survey evaluation of the outer left breast wasperformed. The upper outer and lower-outer quadrants were examined. There is no evidence of morphologically suspicious mass. No cyst or solidmass is visualized. No axillary abnormality is visualized. IMPRESSION: Probably benign. On the screening study, the focal asymmetry in the outerleft breast has morphology suggestive of benign intramammary lymph node.This may be in the upper left breast on the screening MLO view. Follow-upleft breast mammogram in 6 months suggested. Findings and recommendationswere conveyed to the patient. BI-RADS CATEGORY: 3 - PROBABLY BENIGN RECOMMENDATION: Short Interval Follow-up is recommended for the left breast in 6 months.Short Interval Follow-up is recommended for the left breast in 6 months. Mammo Location: [facility], [address] [place] [address], [id number], . -------- FINAL REPORT -------- Dictated By: Jacqueline Rodriguez Dictated Date: 08/03/2024 11:10 ET Assigned Physician: Jacqueline Rodriguez Reviewed and Electronically Signed By: Jacqueline Rodriguez Signed Date: 08/03/2024 11:45 ET Workstation ID: [id number] Transcribed By: Self Edit Transcribed Date: 08/03/2024 11:20 ET Dar Starks MD IMG BI PROCEDURES Final Result * [place] ARTHROCENTESIS/ASPIRATION/INJECTION SMALL JOINT/BURSA WO U/S GUIDANCE (07/24/2024 10:00 AM EST) Narrative Jessica Rossi PA - 07/24/2024 10:00 AM EST ROSEANN Johnston ? 07/24/2024 12:57 PM Hand / UE Inj/Asp: R thumb CMC for osteoarthritis Indications: pain Details: 25 G needle, dorsal approach Medications: 40 mg triamcinolone acetonide 40 mg/mL; 0.5 mL lidocaine 1 % Informed Consent: ??Laterality: ??Right ??Relevant images/test results available and reviewed: yes ?Health status cleared: ??Yes ??Procedure/treatment, purpose, treatment alternatives, risks/potential complications and benefits explained: yes ?Risk/complications/benefits details: ??Risks of infection, thinning of the skin, skin discoloration discussed. ??Discussed the possibility of increased pain, mild redness and swelling at injection site. ??Discussed uncommon side effect of facial flushing after cortisone injection. ?? Patient may use ice, Tylenol or ibuprofen if they can take it. ??Benefits pain management ??Patient questions answered: yes ?Patient agrees, verbalizes understanding, and wants to proceed: yes ?Consent given by: ??Patient ??Informed consent discussion completed by Physician/ETHAN with patient: ?? Verbal ??Pre-procedure timeout performed: yes ?? us Jessica WHITFIELD IN CLINIC/BEDSIDE ORDERABLES Final Result * (ABNORMAL) MG Mammo Digital Screening w Fam bilat (07/20/2024 3:02 PM EST) Anatomical Region Laterality Modality Breast Bilateral Mammography 07/21/2024 10:4 8 AM EST Impressions 07/21/2024 10:52 AM EST Asymmetric opacities in the left breast as detailed. ??Additional imaging is recommended. BI-RADS CATEGORY: 0 - INCOMPLETE - NEED ADDITIONAL IMAGING EVALUATION RECOMMENDATION: Ultrasound is recommended for the Left Breast. Ultrasound is recommended for the Left Breast. -------- FINAL REPORT -------- Dictated By: Felicia Holm Dictated Date: 07/21/2024 10:48 ET Assigned Physician: Felicia Holm Reviewed and Electronically Signed By: Felicia Holm Signed Date: 07/21/2024 10:52 ET Workstation ID: [id number] Transcribed By: Self Edit Transcribed Date: 07/21/2024 10:48 ET Narrative 07/21/2024 10:52 AM EST EXAMINATION TYPE: MG MAMMO DIGITAL SCREENING W FAM BILAT DATE OF EXAM ORDERED: 07/20/2024 2:49 PM COMPARISON: Prior mammograms, latest from 07/15/2023. REASON FOR STUDY: ??Breast cancer screen, avg risk, asymptomatic (Age => 40y) TECHNIQUE: Bilateral mediolateral oblique and craniocaudal views ??were obtained without and with implants displacement digitally with 3-D mammogram (digital breast tomosynthesis) with CAD. Computer-aided detection was utilized in evaluation of this examination (Ella; iCAD). FINDINGS: There are bilateral retropectoral implants. ??The implant capsules are smooth. ??There is no evidence of suggest extracapsular extravasation. There is asymmetric opacity in the inferior lateral left breast visualized on MLO view and exaggerated laterally cc view with implant displacement. ??There is no other focal asymmetry, suspicious calcifications or architectural distortion. ??Additional evaluation is recommended with spot compression MLO implant displacement and exaggerated lateral CC view with implant displacement. ??Full-field straight lateral view and ultrasound would also be needed. ??We will contact the patient for the arrangements. BREAST DENSITY: B - There are scattered areas of fibroglandular density. Procedure Note Felicia Holm MD - 07/21/2024 EXAMINATION TYPE: MG MAMMO DIGITAL SCREENING W FAM BILAT DATE OF EXAM ORDERED: 07/20/2024 2:49 PM COMPARISON: Prior mammograms, latest from 07/15/2023. REASON FOR STUDY: Breast cancer screen, avg risk, asymptomatic (Age =>40y) TECHNIQUE: Bilateral mediolateral oblique and craniocaudal views wereobtained without and with implants displacement digitally with 3-Dmammogram (digital breast tomosynthesis) with CAD. Computer-aideddetection was utilized in evaluation of this examination ([facility]). FINDINGS: There are bilateral retropectoral implants. The implant capsules aresmooth. There is no evidence of suggest extracapsular extravasation. There is asymmetric opacity in the inferior lateral left breast visualizedon MLO view and exaggerated laterally cc view with implant displacement.There is no other focal asymmetry, suspicious calcifications orarchitectural distortion. Additional evaluation is recommended with spotcompression MLO implant displacement and exaggerated lateral CC view withimplant displacement. Full-field straight lateral view and ultrasoundwould also be needed. We will contact the patient for the arrangements. BREAST DENSITY: B - There are scattered areas of fibroglandular density. IMPRESSION: Asymmetric opacities in the left breast as detailed. Additional imagingis recommended. BI-RADS CATEGORY: 0 - INCOMPLETE - NEED ADDITIONAL IMAGING EVALUATION RECOMMENDATION: Ultrasound is recommended for the Left Breast. Ultrasound is recommendedfor the Left Breast. -------- FINAL REPORT -------- Dictated By: Felicia Holm Dictated Date: 07/21/2024 10:48 ET Assigned Physician: Felicia Holm Reviewed and Electronically Signed By: Felicia Holm Signed Date: 07/21/2024 10:52 ET Workstation ID: [id number] Transcribed By: Self Edit Transcribed Date: 07/21/2024 10:48 ET Dar Starks MD IMG BI PROCEDURES Final Result * DXA BONE DENSITY STUDY 1+ SITS AXIAL SKEL (12/02/2023 1:50 PM EDT) Anatomical Region Laterality Modality Bone Densitometr y 10/01/2023 3:13 PM EST Narrative 12/02/2023 6:04 PM EDT BONE DENSITY ? Lumbar Spine T-score is +0.5 ?? (SD relative to 20-29 y/o adult) Z-score is +2.2 ??(SD relative to age matched peers) This is normal by criteria defined by the WHO. Left Hip T-score is -1.4 Z-score is +0.1 This is consistent with osteopenia by criteria defined by the WHO. Impression: Based on the World Health Organization criteria, Mirta Kebede should be classified as having osteopenia. This patient has a 12% risk of major osteoporotic fracture and a 1.5% risk of hip fracture over the next 10 years. (World Health Organization Fracture Risk Assessment) The [facility] Department of Internal Medicine recommends using National Osteoporosis Foundation (NOF) guidelines in treatment decisions related to osteoporosis. NOF guidelines suggest considering treatment for postmenopausal women and men aged 50 or older presenting with the following: History of hip or vertebral fracture. T-score less than or equal to -2.5 (DXA) at the femoral neck, total hip, or spine, after appropriate evaluation to exclude secondary causes. Low bone mass (T-score between -1.0 and -2.5 at the femoral neck or spine) AND a 10-year probability of a hip fracture greater than or equal to 3% OR a 10-year probability of a major osteoporosis-related fracture greater than or equal to 20% based on the [place]-adapted WHO algorithm Please note that all treatment decisions require clinical judgment and consideration of individual patient factors, including patient preferences, co-morbidities, previous drug use, risk factors not captured in the FRAX model (e.g., frailty, falls, vitamin D deficiency, increased bone turnover, interval significant decline in bone density) and possible under- or over-estimation of fracture risk by FRAX. Procedure Note Felicia Holm MD - 03/20/2024 BONE DENSITY Lumbar Spine T-score is +0.5 (SD relative to 20-29 y/o adult) Z-score is +2.2 (SD relative to age matched peers) This is normal by criteria defined by the WHO. Left Hip T-score is -1.4 Z-score is +0.1 This is consistent with osteopenia by criteria defined by the WHO. Impression: Based on the World Health Organization criteria, Mirta Simon be classified as having osteopenia. This patient has a 12% risk ofmajor osteoporotic fracture and a 1.5% risk of hip fracture over the next10 years. (World Health Organization Fracture Risk Assessment) The [facility] Department of Internal Medicine recommendsusing National Osteoporosis Foundation (NOF) guidelines in treatmentdecisions related to osteoporosis. NOF guidelines suggest consideringtreatment for postmenopausal women and men aged 50 or older presentingwith the following: History of hip or vertebral fracture. T-score less than or equal to -2.5 (DXA) at the femoral neck, total hip,or spine, after appropriate evaluation to exclude secondary causes. Low bone mass (T-score between -1.0 and -2.5 at the femoral neck or spine)AND a 10-year probability of a hip fracture greater than or equal to 3% ORa 10-year probability of a major osteoporosis-related fracture greaterthan or equal to 20% based on the [place]-adapted WHO algorithm Please note that all treatment decisions require clinical judgment andconsideration of individual patient factors, including patientpreferences, co-morbidities, previous drug use, risk factors not capturedin the FRAX model (e.g., frailty, falls, vitamin D deficiency, increasedbone turnover, interval significant decline in bone density) and possibleunder- or over-estimation of fracture risk by FRAX. Result [facility] Marcos Pérez MD IMG DXA PROCEDURES Final Re sult * Annual BMP Blood Test (01/28/2023) [facility] Annual BMP Blood Test Abstracted Result [facility] Provider HEALTH MAINTENANCE Final Result * (ABNORMAL) Lipid panel (06/11/2022) [facility] LDL/HDL Ratio 4 0 - 4 Triglycerides 239(A) 0 - 150 mg/dL Cholesterol 226(A) 0 - 200 mg/dL HDL 58 >=40 mg/dL LDL Cholesterol 121(A) 0 - 100 mg/dL Blood Venous blood specimen / Unknown Result [facility] Provider LAB BLOOD ORDERABLES Kelly l Result * Colonoscopy (06/13/2021) [facility] Colonoscopy No Interpretation , Abstracted Anatomical Region Laterality Modality Other Result [facility] Provider HEALTH MAINTENANCE Final Result * Hepatitis C Screening (02/04/2021) [facility] Hepatitis C Screening Abstracted Result [facility] Provider HEALTH MAINTENANCE Final Result from Last 3 Months or Most Recently Relevant to Health Maintenance Additional Health Concerns Infection Onset Date Last Indicated Influenza 09/06/2024 09/06/2024 Insurance [facility] Care Teams Sand Technician Relationship Specialty Start Date End Date Dar Starks MD [address] [place] [address] PCP - General Internal Medicine 10/20/21
--- OUTSIDE RECORDS SUMMARY | 2024-09-28 14:57 | XMS_ITS | Clinical Summary ---
Author Organization [facility] Address [address] [place] [address] Care Team Providers Care Irs Agent Name Role Phone Anum Starks Primary Care Provider [phone] Allergies Active Allergy Reactions Criticality Noted Date Comments Aspirin Vomiting 03/02/2024 stomach upset only Shellfish Derived Swelling High Medications delmer lib-gjg-C2-Zn-c op-man-bor 250-40-125 mg-mg-unit tablet Magnesium 250 MG [...] Due INFLUENZA, SPLIT VIRUS, TRIVALENT, PF 05/31/2013 Family History Medical History Relation Name Comments Other Father Family History of myocardial infarction Other Mother Family history of Neurological abnormality Other Sister Family History of myocardial infarction Relation Name Status Comments Father Mother Sister Social History Tobacco Use Types Packs/Day [...] Info) Description 03/06/2025 10:15 AM EDT Follow-Up [facility] [address] [facility], [place] [address] Digital Advertising Analyst: Yunior Baker NP [address] [place] [address] Health Maintenance Due Date Last Done Comments Cologuard 1958 Colon Cancer Screening 1958 Colonoscopy 1958 FOBT / Fit Test 1958 HIV Screening 1958 Hepatitis C Screening 1958 Sigmoidoscopy 1958 Mammogram 1998 Osteoporosis Screening 2008 Pneumococcal Vaccine: 50+ Years (1 of 1 - PCV) 2008 COVID-19 Vaccine ( season) 2024 05/12/2022, 01/02/2022, 06/02/2021, Additional history exists Influenza Vaccine (#1) 2024 , 07/21/2021, 05/15/2020, Additional history exists Alcohol/Substance Use Screening 08/02/2024 Depression Screening and Follow-Up 08/02/2024 Health Care Proxy Review 08/02/2024 Social Drivers of Health Annual Screening 08/02/2024 Basic Metabolic Panel 03/02/2025 03/02/2024 DTaP,Tdap,and Td Vaccines (2 - Td or Tdap) 08/28/2031 08/28/2021 RSV Vaccine (60+ years old and patients) (1 - 1-dose 75+ series) 2033 Zoster Vaccines Completed 01/27/2021, 09/17/2020 Hepatitis B Vaccines Aged Out No long er eligible based on patient's age to complete this topic Procedures * Due to [place] [employer] law, this organization might not be sharing negative HIV tests. Procedure Name Priority Date/Time Associated Diagnosis Comments BASIC METABOLIC PANEL Routine 03/02/2024 11:55 AM EDT High risk medication use from Last 3 Months or Most Recently Relevant to Health Maintenance Results * Due to [place] [employer] law, this organization might not be sharing negative HIV tests. * Basic Metabolic Panel (03/02/2024 11:55 AM EDT) NA 138 135 - 145 mmol/L 03/02/2024 1:27 PM EDT [facility] K 4.3 3.5 - 5.3 mmol/L 03/02/2024 1:27 PM EDT [facility] Cl 104 98 - 107 mmol/L 03/02/2024 1:27 PM EDT [facility] CO2 24 24 - 32 mmol/L 03/02/2024 1:27 PM EDT [facility] BUN 14 7 - 23 mg/dL 03/02/2024 1:27 PM EDT [facility] Creatinine 0.86 0.50 - 1.20 mg/dL 03/02/2024 1:27 PM EDT [facility] Glucose 96 65 - 99 mg/dL 03/02/2024 1:27 PM EDT [facility] Calcium 9.7 8.6 - 10.5 mg/dL 03/02/2024 1:27 PM EDT [facility] Anion Gap 10 5 - 15 [place] MANUAL 03/02/2024 1:27 PM EDT [facility] eGFR 75 >=60 mL/min/1. 73m2 [place] MANUAL 03/02/2024 1:27 PM EDT [facility] Comment:The estimated glomer ular filtration rate (eGFR) is calculated using a new formula developed by the NKF-ASN task force to eliminate race-based correction factors. The new formula uses serum/plasma creatinine, age, and gender to determine eGFR. A value below 60mls/min might indicate kidney disease and will be flagged. For additional information, see Mcdermott et al, Am J Kidney Dis. 2021;79(2):268- 288, A Unifying Approach for GFR estimation: Recommendations of the NKF-ASN Task Force on Reassessing the Inclusion of Race in Diagnosing Kidney Disease . Blood Structure of peripheral vein / Unknown Venipuncture / Unknown 03/02/2024 11:55 AM EDT 03/02/2024 11:55 AM EDT us Yunior Rutledge SYSTEMS OPERATOR LAB BLOOD ORDERABLES Final R esult [facility] [address] [place] [address], from Last 3 Months or Most Recently Relevant to Health Maintenance Insurance [employer] [place] Care Teams Irs Agent Relationship Specialty Start Date End Date Anum Starks [address] [place] [id number] PCP - General Internal Medicine 11/12/23
== END 2024-09-28 13:00 | disposition home or self-care (01) ==
PROVIDERS: PCP Internal Medicine; Visit Provider Psychiatry & Neurology Neurology
DX: G43.E09 Chronic migraine with aura, not intractable, without status migrainosus (principal); M47.812 Spondylosis without myelopathy or radiculopathy, cervical region; H53.9 Unspecified visual disturbance
CPT/HCPCS: 99214

== ENCOUNTER 2024-09-28 12:31 | Outpatient (REF) | payer BC, SELFPAY ==
--- OUTSIDE RECORDS SUMMARY | 2024-09-28 15:27 | XMS_ITS | Clinical Summary ---
Author Organization [facility] Address [address] [place] [address] Care Team Providers Care Plastic Surgery Specialist Name Role Phone Unknown, Primary Care Provider [...] age to complete this topic Care Teams Plastic Surgery Specialist Relationship Specialty Start Date End Date Unknown, PCP - General 07/08/22
--- OUTSIDE RECORDS SUMMARY | 2024-09-28 15:27 | XMS_ITS | Encounter Summary ---
Author Organization [facility] Address [address] [place] [address] Care Team Providers Care Tank Maker Wood Name Role Phone Dar Starks MD Primary Care Provider [phone] Reason for Visit * Reason Comments Earache Left side // over a month of pain Encounter Details Date Type Department Care Team (Latest Contact Info) Description 09/13/2024 3:30 PM EST Office Visit [facility] [address] [phone] Bella Green PA-C [address] [place] [address] Arthralgia of left temporomandibular joint (Primary [...] the original note were not included. [address] [facility] [phone] Loc: [phone] Encounter Date: 09/13/2024 History of Present Illness: [...] left ear that went up to the orthodoxy. She went to urgent care 3 times [...] Description 09/29/2024 11:30 AM EST Office Visit [facility] [address] [place] [phone] Bella Green PA-C [address] [place] [address] documented as of this encounter Visit Diagnoses Diagnosis Arthralgia of left temporomandibular joint- Primary Dysfunction of left eustachian tube Left ear pain Unspecified otalgia documented in this encounter Care Teams Tank Maker Wood Relationship Specialty Start Date End Date Dar Starks MD [address] [place] [address] PCP - General Internal Medicine 09/13/24 documented as of this encounter
--- OUTSIDE RECORDS SUMMARY | 2024-09-28 15:27 | XMS_ITS | Encounter Summary ---
Author Organization [facility] Address [address] [place] [address] Care Team Providers Care Clinic Physician Director Name Role Phone Dar Starks MD Primary Care Provider [phone] Encounter Details Date Type Department Care Team (Latest Contact Info) Description 09/06/2024 3:04 PM EST - 09/06/2024 11:59 PM EST Hospital Encounter Xray - [facility] [address] [place] [phone] Viral URI with cough; Moderate persistent asthma [...] EDT [facility] [address] [place] [address] Viktoriya Adorno DO [address] [place] [address] 01/01/2025 1:30 PM EDT Appointment Radiology Department [address] [phone] documented as of this encounter Procedures Procedure [...] Signed Date: 09/06/2024 15:27 ET Workstation ID: [id number] Transcribed By: Self Edit Transcribed Date: 09/06/2024 [...] Signed Date: 09/06/2024 15:27 ET Workstation ID: [id number] Transcribed By: Self Edit Transcribed Date: 09/06/2024 [...] documented as of this encounter Care Teams Clinic Physician Director Relationship Specialty Start Date End Date Dar Starks MD [address] [place] [address] PCP - General Internal Medicine 10/20/21 documented as of this encounter
--- OUTSIDE RECORDS SUMMARY | 2024-09-28 15:27 | XMS_ITS | Clinical Summary ---
Author Organization [facility] Address [address] [place] [address] Care Team Providers Care Civil Engineering Intern Name Role Phone Dar Starks MD Primary Care Provider [phone] Allergies Active Allergy Reactions Criticality Noted Date [...] Description 09/13/2024 3:30 PM EST Office Visit [facility] [place] [address] [place] [phone] Bella Green PA-C Arthralgia of left temporomandibular joint (Primary [...] Description 09/29/2024 11:30 AM EST Office Visit [facility] [address] [place] [address] Bella Green PA-C [address] [place] [address] Health Maintenance Due Date Last [...] age to complete this topic Care Teams Civil Engineering Intern Relationship Specialty Start Date End Date Dar Starks MD [address] [place] [address] [place] [address] PCP - General Internal Medicine 09/13/24
--- OUTSIDE RECORDS SUMMARY | 2024-09-28 15:27 | XMS_ITS | Encounter Summary ---
Author Organization [facility] Address [address] [place] [address] Care Team Providers Care Operations Manager Assistant Name Role Phone Dar Starks MD Primary Care Provider [phone] Reason for Visit * Reason Comments Earache med review Encounter Details Date Type Department Care Team ([facility] Contact Info) Description 09/06/2024 2:45 PM EST Office Visit Chief Commercial Officer - [facility] [address] [place] [phone] Dar Starks MD [address] [place] [address] Primary hypertension (Primary Dx); Viral URI with [...] each day. 90 tablet 0 [DISCONTINUED] delmer ldc-tjy-J4-Lc-qsz-jah-bor 250-40-125 mg-mg-unit tablet Magnesium 250 MG Oral [...] EDT [facility] [address] [place] [address] Tila Viktoriya, DO [address] [place] [address] 01/01/2025 1:30 PM EDT Appointment Radiology Department - [address] [address] Scheduled Orders Name Type Priority Associated Diagnoses [...] Detected LAB MICROBIOLOGY METHOD 09/06/2024 9:29 PM [facility] Influenza B PCR Not Detected Not Detected LAB MICROBIOLOGY METHOD 09/06/2024 9:29 PM [facility] Coronavirus 229E Not Detected Not Detected LAB MICROBIOLOGY METHOD 09/06/2024 9:29 PM [facility] Coronavirus HKU1 Not Detected Not Detected LAB MICROBIOLOGY METHOD 09/06/2024 9:29 PM [facility] Coronavirus OC43 Not Detected Not Detected LAB MICROBIOLOGY METHOD 09/06/2024 9:29 PM [facility] Coronavirus NL63 Not Detected Not Detected LAB MICROBIOLOGY METHOD 09/06/2024 9:29 PM [facility] Parainfluenza Virus 1 Not Detected Not Detected LAB MICROBIOLOGY METHOD 09/06/2024 9:29 PM [facility] Parainfluenza Virus 2 Not Detected Not Detected LAB MICROBIOLOGY METHOD 09/06/2024 9:29 PM [facility] Parainfluenza Virus 3 Not Detected Not Detected LAB MICROBIOLOGY METHOD 09/06/2024 9:29 PM [facility] Parainfluenza Virus 4 Not Detected Not Detected LAB MICROBIOLOGY METHOD 09/06/2024 9:29 PM [facility] RSV PCR Not Detected Not Detected LAB MICROBIOLOGY METHOD 09/06/2024 9:29 PM [facility] Human Metapneumovirus A and B Not Detected Not Detected LAB MICROBIOLOGY METHOD 09/06/2024 9:29 PM [facility] Rhinovirus/Entero virus Not Detected Not Detected LAB MICROBIOLOGY METHOD 09/06/2024 9:29 PM [facility] Bordetella pertussis Not Detected Not Detected LAB MICROBIOLOGY METHOD 09/06/2024 9:29 PM [facility] Bordetella parapertussis Not Detected Not Detected LAB MICROBIOLOGY METHOD 09/06/2024 9:29 PM [facility] Influenza A H1N1 PDM09 Detected(A ) Not Detected LAB MICROBIOLOGY METHOD 09/06/2024 9:29 PM [facility] Mycoplasma pneumo by PCR Not Detected Not Detected LAB MICROBIOLOGY METHOD 09/06/2024 9:29 PM [facility] Chlamydia pneumoniae Not Detected Not Detected LAB MICROBIOLOGY METHOD 09/06/2024 9:29 PM [facility] SARS COV-2 Not Detected Not Detected LAB MICROBIOLOGY METHOD 09/06/2024 9:29 PM [facility] Swab Both anterior nares / Unknown Non-blood Collection / Unknown 09/06/2024 4:01 PM EST 09/06/2024 4:03 PM [facility] - 09/06/2024 9:29 PM EST Testing was performed using the [employer] Respiratory Pathogen PCR Assay. All results must [...] detection. Dar Starks MD LAB MICROBIOLOGY - [facility] Final Result [facility] ([facility]) [facility] [address] [place] [address], [place] [phone] * XR Chest 2 Views (09/06/2024 3:10 [...] Signed Date: 09/06/2024 15:27 ET Workstation ID: [id number] Transcribed By: Self Edit Transcribed Date: 09/06/2024 [...] Signed Date: 09/06/2024 15:27 ET Workstation ID: [id number] Transcribed By: Self Edit Transcribed Date: 09/06/2024 [...] 0 Active Discontinued by another clinician 09/06/2024 delmer lfx-lld-P3-Zn-molecular spectroscopist-man -bor 250-40-125 mg-mg-unit tablet Magnesium 250 MG [...] documented as of this encounter Care Teams Operations Manager Assistant Relationship Specialty Start Date End Date Dar Starks MD [address] [place] [address] PCP - General Internal Medicine 10/20/21 documented as of this encounter
--- OUTSIDE RECORDS SUMMARY | 2024-09-28 15:27 | XMS_ITS | Encounter Summary ---
Author Organization [facility] Address [address] [place] [address] Care Team Providers Care Grain Manager Name Role Phone Dar Starks MD Primary Care Provider [phone] Reason for Visit * Reason Onset Date Comments Earache 08/28/2024 Encounter Details Date Type Department Care Team ([facility] [address] Contact Info) Description 08/28/2024 Telephone [place] Representative - [facility] [address] [place] [address] Dar Starks MD [address] [place] [address] Earache Social History Tobacco Use Types Packs/Day [...] traveled recently to another state outside of [place], [place], [place], [place], [place], [place], [place]? no o If yes, did you quarantine [...] of accident/Injury: No If yes, gather 3rd alliance party insurance information Third Libertarian Information: not applicable PCP: Dar Starks MD Payor: [facility] - FEDERAL / Plan: [facility] FED[employer]AL / Product Type: *No Product type* / documented in this encounter Plan of Treatment Upcoming Encounters Date Type Department Care Team (Late st Contact Info) Description 11/01/2024 10:30 AM EDT Office Visit Obstetrics and Gynecology - [facility] [address] [place] [address] Viktoriya Adorno DO [address] [place] [address] 01/01/2025 1:30 PM EDT Appointment Radiology Department - [address] [phone] documented as of this encounter Visit Diagnoses Not on filedocumented in this encounter Additional Health Concerns Infection Onset Date Last Indicated Resolved Time Respiratory Rule-Out 09/06/2024 09/06/2024 025 9:29 PM EST COVID-19 Rule-Out 09/06/2024 09/06/2024 09/06/2024 9:29 PM EST Influenza 09/06/2024 09/06/2024 documented as of this encounter Care Teams Grain Manager Relationship Specialty Start Date End Date Dar Starks MD [address] [place] [address] PCP - General Internal Medicine 10/20/21 documented as of this encounter
--- OUTSIDE RECORDS SUMMARY | 2024-09-28 15:28 | XMS_ITS | Clinical Summary ---
Author Organization [facility] Address [address] [place] [address] Care Team Providers Care Archaeologist Name Role Phone Anum Starks Primary Care Provider [phone] Allergies Active Allergy Reactions Criticality Noted Date Comments Aspirin Vomiting 03/02/2024 stomach upset only Shellfish Derived Swelling High Medications delmer uxz-zwo-E0-Zn-c op-man-bor 250-40-125 mg-mg-unit tablet Magnesium 250 MG [...] Info) Description 03/06/2025 10:15 AM EDT Follow-Up [facility] Dermatology Clinic 4th Floor [address] [facility], [place] [address] Manager Foreign: Yunior Baker NP [address] [place] [address] Health Maintenance Due Date Last Done Comments [...] complete this topic Procedures * Due to [place] [employer] law, this organization might not be sharing negative HIV tests. Procedure Name Priority Date/Time Associated Diagnosis Comments BASIC METABOLIC PANEL Routine 03/02/2024 11:55 AM EDT High risk medication use from Last 3 Months or Most Recently Relevant to Health Maintenance Results * Due to [place] law, this organization might not be sharing negative HIV tests. * Basic Metabolic Panel (03/02/2024 11:55 AM EDT) NA 138 135 - 145 mmol/L 03/02/2024 1:27 PM EDT [facility] K 4.3 3.5 - 5.3 mmol/L 03/02/2024 1:27 PM EDT [facility] Cl 104 98 - 107 mmol/L 03/02/2024 1:27 PM EDT [facility] CO2 24 24 - 32 mmol/L 03/02/2024 1:27 PM EDT [facility] BUN 14 7 - 23 mg/dL 03/02/2024 1:27 PM EDT [facility] Creatinine 0.86 0.50 - 1.20 mg/dL 03/02/2024 1:27 PM EDT [facility] Glucose 96 65 - 99 mg/dL 03/02/2024 1:27 PM EDT [facility] Calcium 9.7 8.6 - 10.5 mg/dL 03/02/2024 1:27 PM EDT [facility] Anion Gap 10 5 - 15 [place] [facility] 03/02/2024 1:27 PM EDT [facility] eGFR 75 >=60 mL/min/1. 73m2 [place] [facility] 03/02/2024 1:27 PM EDT [facility] Comment:The estimated glomer ular [...] 03/02/2024 11:55 AM EDT us Yunior Rutledge SELF RISING FLOUR MIXER LAB BLOOD ORDERABLES Final R esult [facility] [address] [place] [address], from Last 3 Months or Most Recently Relevant to Health Maintenance Insurance [employer] FEDERAL Care Teams Archaeologist Relationship Specialty Start Date End Date Anum Starks [address] [place] [id number] PCP - General Internal Medicine 11/12/23
--- OUTSIDE RECORDS SUMMARY | 2024-09-28 15:28 | XMS_ITS | Referral Summary ---
Author Organization [facility] Address [address] [place] [address] Care Team Providers Care Office Rental Clerk Name Role Phone Anum Starks Primary Care Provider [phone] Allergies Active Allergy Reactions Criticality Noted Date Comments Aspirin Vomiting 03/02/2024 stomach upset only Shellfish Derived Swelling High Medications delmer cxi-zsj-H7-Zn-c op-man-bor 250-40-125 mg-mg-unit tablet Magnesium 250 MG [...] Info) Description 03/06/2025 10:15 AM EDT Follow-Up [facility] Dermatology Clinic 4th Floor [address] [facility], Fourth [place] [address] Director Of Recruitment And Admissions: Yunior Baker NP [address] [place] [address] Procedures * Due to [place] [employer] law, this organization might not be sharing negative HIV tests. Procedure Name Priority Date/Time Associated Diagnosis Comments BASIC METABOLIC PANEL Routine 03/02/2024 11:55 AM EDT High risk medication use from Last 3 Months or Most Recently Relevant to Health Maintenance Results * Due to [place] [employer] law, this organization might not be sharing negative HIV tests. * Basic Metabolic Panel (03/02/2024 11:55 AM EDT) NA 138 135 - 145 mmol/L 03/02/2024 1:27 PM ED[address] [facility] K 4.3 3.5 - 5.3 mmol/L 03/02/2024 1:27 PM EDT [facility] Cl 104 98 - 107 mmol/L 03/02/2024 1:27 PM EDT [facility] CO2 24 24 - 32 mmol/L 03/02/2024 1:27 PM EDT [facility] BUN 14 7 - 23 mg/dL 03/02/2024 1:27 PM EDT [facility] Creatinine 0.86 0.50 - 1.20 mg/dL 03/02/2024 1:27 PM EDT [facility] Glucose 96 65 - 99 mg/dL 03/02/2024 1:27 PM EDT [facility] Calcium 9.7 8.6 - 10.5 mg/dL 03/02/2024 1:27 PM EDT [facility] Anion Gap 10 5 - 15 [facility] 03/02/2024 1:27 PM EDT [facility] eGFR 75 >=60 mL/min/1. 73m2 [facility] MANUAL 03/02/2024 1:27 PM EDT [facility] Comment:The estimated glomer ular [...] EDT 03/02/2024 11:55 AM EDT Yunior Rutledge PACK OUT OPERATOR LAB BLOOD ORDERABLES Final R esult [facility] [address] [place] [address], from Last 3 Months or Most Recently Relevant to Health Maintenance [place] [address] [place] [address] FEDERAL Care Teams Office Rental Clerk Relationship Specialty Start Date End Date Anum Starks [address] [facility] [place] [address] PCP - General Internal Medicine 11/12/23
--- OUTSIDE RECORDS SUMMARY | 2024-09-28 15:28 | XMS_ITS | Clinical Summary ---
Author Organization [facility] [address] [place] [address] [place] [phone] Phone Care Team Providers Care Pest Control Technician Name Role Phone Dar Starks MD Primary Care Provider [phone] Allergies Active Allergy Reactions Criticality Noted Date [...] 025 Discontinued(Di scontinued by another clinician) delmer adl-tvr-R5-Zn- photocopying machine operator-man-bor 250-40-125 mg-mg-unit tablet Magnesium 250 MG Oral [...] Overview (08/07/2024): Status post Botox injection with [facility] neurology Mild ascending aorta dilatation 06/10/2022 Insomnia [...] Hospital Encounter Xray - [facility] [address] [place], [place] [phone] Viral URI with cough; Moderate persistent asthma with exacerbation; Wheezing Discharge Disposition: Home or Self Care 09/06/2024 2:45 PM EST Office Visit Cost Control Supervisor - [facility] [address], [place] [phone] Dar Starks MD Primary hypertension (Primary Dx); Viral URI with cough; Moderate persistent asthma with exacerbation; Wheezing 08/28/2024 Telephone Cost Control Supervisor - [facility] [address] [place], [place] [phone] Dar Starks MD Earache 08/04/2024 Telephone Pediatric[facility] - [facility] [address] [facility] [place] [phone] Dar Starks MD Medication Problem 08/03/2024 10:51 AM EST - 08/03/2024 11:59 PM EST Hospital Encounter Radiology Department - [address] [phone] Abnormal mammogram Discharge Disposition: Home or Self Care 08/03/2024 10:50 AM EST - 08/03/2024 11:59 PM EST Hospital Encounter Radiology Department - [address] [phone] Abnormal mammogram Discharge Disposition: Home or Self Care 07/24/2024 10:00 AM EST Office Visit Orthopedic Surgery - [place] [address] [facility] [facility] [address] [place] [address] Jessica Rossi PA [facility] arthritis (Primary Dx) 07/20/2024 2:39 PM EST - 07/20/2024 11:59 PM EST Hospital Encounter Radiology Department - [address] [phone] Encounter for screening mammogram for breast cancer Discharge Disposition: Home or Self Care 07/18/2024 Telephone Cost Control Supervisor - [facility] [address] [place], [place] [phone] Dar Starks MD Lyme Disease 07/14/2024 Telephone Cost Control Supervisor - [facility] [address] [facility] [place] [phone] Dar Starks MD Labs Only 07/10/2024 Telephone Pediatrics - [facility] [address] [facility] [place] [place] [phone] Dar tSarks MD Labs Only 07/03/2024 Telephone Pediatrics - [facility] [address] [facility] [place] [phone] Dar Starks MD Request For Order(s) from [...] x2 (plate, subsequently removed) BREAST SURGERY PROCEDURE: ID UNLISTED PROCEDURE BREAST; COMMENT: implants OTHER SURGICAL [...] EDT Office Visit Obstetrics and Gynecology - [facility] [address] [place] [address] Viktoriya Adorno DO [address] [place] [address] 01/01/2025 1:30 PM EDT Appointment Radiology Department [address] [phone] Health Maintenance Due Date Last Done Comments [...] Routine 08/03/2024 11:01 AM EST Abnormal mammogram ID ARTHROCENTESIS/ASPIR ATION/INJECTION SMALL JOINT/BURSA WO U/S GUIDANCE [...] Detected LAB MICROBIOLOGY METHOD 09/06/2024 9:29 PM [facility] Influenza B PCR Not Detected Not Detected LAB MICROBIOLOGY METHOD 09/06/2024 9:29 PM [facility] Coronavirus 229E Not Detected Not Detected LAB MICROBIOLOGY METHOD 09/06/2024 9:29 PM [facility] Coronavirus HKU1 Not Detected Not Detected LAB MICROBIOLOGY METHOD 09/06/2024 9:29 PM [facility] Coronavirus OC43 Not Detected Not Detected LAB MICROBIOLOGY METHOD 09/06/2024 9:29 PM [facility] Coronavirus NL63 Not Detected Not Detected LAB MICROBIOLOGY METHOD 09/06/2024 9:29 PM [facility] Parainfluenza Virus 1 Not Detected Not Detected LAB MICROBIOLOGY METHOD 09/06/2024 9:29 PM [facility] Parainfluenza Virus 2 Not Detected Not Detected LAB MICROBIOLOGY METHOD 09/06/2024 9:29 PM [facility] Parainfluenza Virus 3 Not Detected Not Detected LAB MICROBIOLOGY METHOD 09/06/2024 9:29 PM [facility] Parainfluenza Virus 4 Not Detected Not Detected LAB MICROBIOLOGY METHOD 09/06/2024 9:29 PM [facility] RSV PCR Not Detected Not Detected LAB MICROBIOLOGY METHOD 09/06/2024 9:29 PM [facility] Human Metapneumovirus A and B Not Detected Not Detected LAB MICROBIOLOGY METHOD 09/06/2024 9:29 PM [facility] Rhinovirus/Entero virus Not Detected Not Detected LAB MICROBIOLOGY METHOD 09/06/2024 9:29 PM [facility] Bordetella pertussis Not Detected Not Detected LAB MICROBIOLOGY METHOD 09/06/2024 9:29 PM [facility] Bordetella parapertussis Not Detected Not Detected LAB MICROBIOLOGY METHOD 09/06/2024 9:29 PM [facility] Influenza A H1N1 PDM09 Detected(A ) Not Detected LAB MICROBIOLOGY METHOD 09/06/2024 9:29 PM [facility] Mycoplasma pneumo by PCR Not Detected Not Detected LAB MICROBIOLOGY METHOD 09/06/2024 9:29 PM [facility] Chlamydia pneumoniae Not Detected Not Detected LAB MICROBIOLOGY METHOD 09/06/2024 9:29 PM [facility] SARS COV-2 Not Detected Not Detected LAB MICROBIOLOGY METHOD 09/06/2024 9:29 PM [facility] Swab Both anterior nares / Unknown Non-blood Collection / Unknown 09/06/2024 4:01 PM EST 09/06/2024 4:03 PM EST [facility] - 09/06/2024 9:29 PM EST Testing was performed using the Zufflee Respiratory Pathogen PCR Assay. All results must [...] MICROBIOLOGY - GENERAL ORDRudy CARBALLO Final Result [facility] ([facility]) [facility] [address] [place] [address], * XR Chest 2 Views (09/06/2024 3:10 [...] Signed Date: 09/06/2024 15:27 ET Workstation ID: [id number] Transcribed By: Self Edit Transcribed Date: 09/06/2024 [...] Signed Date: 09/06/2024 15:27 ET Workstation ID: [id number] Transcribed By: Self Edit Transcribed Date: 09/06/2024 [...] Signed Date: 08/03/2024 13:29 ET Workstation ID: [id number] Transcribed By: Self Edit Transcribed Date: 08/03/2024 [...] Signed Date: 08/03/2024 13:29 ET Workstation ID: [id number] Transcribed By: Self Edit Transcribed Date: 08/03/2024 13:27 ET us Dar Starks MD IMG US PROCEDURES Final Result [...] left breast in 6 months. Mammo Location: [facility], [address] [place] [address], [address], . -------- FINAL REPORT -------- Dictated By: Jacqueline Rodriguez Dictated Date: 08/03/2024 11:10 ET Assigned Physician: Jacqueline Rodriguez Reviewed and Electronically Signed By: Jacqueline Rodriguez Signed Date: 08/03/2024 11:45 ET Workstation ID: [id number] Transcribed By: Self Edit Transcribed Date: 08/03/2024 [...] left breast in 6 months. Mammo Location: [facility], [address] [place] [address], [address], . -------- FINAL REPORT -------- Dictated By: Jacqueline Rodriguez Dictated Date: 08/03/2024 11:10 ET Assigned Physician: Jacqueline Rodriguez Reviewed and Electronically Signed By: Jacqueline Rodriguez Signed Date: 08/03/2024 11:45 ET Workstation ID: [id number] Transcribed By: Self Edit Transcribed Date: 08/03/2024 11:20 ET Dar Starks MD IMG BI PROCEDURES Final Result * ID ARTHROCENTESIS/ASPIRATION/INJECTION SMALL JOINT/BURSA WO U/S GUIDANCE (07/24/2024 [...] Signed Date: 07/21/2024 10:52 ET Workstation ID: [id number] Transcribed By: Self Edit Transcribed Date: 07/21/2024 [...] was utilized in evaluation of this examination [facility]). FINDINGS: There are bilateral retropectoral implants. The [...] Breast. -------- FINAL REPORT -------- Dictated By: Feilcia Holm Dictated Date: 07/21/2024 10:48 ET Assigned Physician: Felicia Holm Reviewed and Electronically Signed By: Felicia Holm Signed Date: 07/21/2024 10:52 ET Workstation ID: [id number] Transcribed By: Self Edit Transcribed Date: 07/21/2024 [...] (World Health Organization Fracture Risk Assessment) [facility] Department of Internal Medicine recommends using [...] (World Health Organization Fracture Risk Assessment) [facility] Department of Internal Medicine recommendsusing National [...] over-estimation of fracture risk by FRAX. Result [facility] Marcos Pérez MD IMG DXA PROCEDURES Final Re sult * Annual BMP Blood Test (01/28/2023) [facility] Annual BMP Blood Test Abstracted Result [facility] Provider HEALTH MAINTENANCE Final Result * (ABNORMAL) Lipid panel (06/11/2022) [facility] LDL/HDL Ratio 4 0 - 4 Triglycerides 239(A) 0 - 150 mg/dL Cholesterol 226(A) 0 - 200 mg/dL HDL 58 >=40 mg/dL LDL Cholesterol 121(A) 0 - 100 mg/dL Blood Venous blood specimen / Unknown Result [facility] Provider LAB BLOOD ORDERABLES Kelly l Result * Colonoscopy (06/13/2021) [facility] Colonoscopy No Interpretation , Abstracted Anatomical Region Laterality Modality Other Result [facility] Provider HEALTH MAINTENANCE Final Result * Hepatitis C Screening (02/04/2021) [facility] Hepatitis C Screening Abstracted Result [facility] Provider HEALTH MAINTENANCE Final Result from Last 3 Months or Most Recently Relevant to Health Maintenance Additional Health Concerns Infection Onset Date Last Indicated Influenza 09/06/2024 09/06/2024 Insurance [facility] Care Teams Pest Control Technician Relationship Specialty Start Date End Date Dar Starks MD [address] [place] [address] PCP - General Internal Medicine 10/20/21
[2024-09-29 21:23] LABS: Lyme Blot 2.47 index
[2024-10-03 13:30] LABS: 18 KD (IgG) Band REACTIVE; 23 KD (IgG) Band REACTIVE; 23 KD (IgM) Band REACTIVE; 28 KD (IgG) Band NON-REACTIVE; 30 KD (IgG) Band NON-REACTIVE; 39 KD (IgM) Band REACTIVE; 39KD (IgG) Band REACTIVE; 41 KD (IgM) Band NON-REACTIVE; 41KD (IgG) Band REACTIVE; 45 KD (IgG) Band NON-REACTIVE; 58 KD (IgG) Band REACTIVE; 66 KD (IgG) Band NON-REACTIVE; 93 KD (IgG) Band NON-REACTIVE; Lyme Abs Screen POSITIVE; Lyme IgG Blot Interp POSITIVE (NEGATIVE); Lyme IgM Blot Interp POSITIVE (NEGATIVE)
== END 2024-09-28 12:32 | disposition home or self-care (01) ==
LOC: HO.HKASLDS 12:31
PROVIDERS: PCP Internal Medicine; Visit Provider Psychiatry & Neurology Neurology
DX: G43.109 Migraine with aura, not intractable, without status migrainosus (principal); H53.9 Unspecified visual disturbance; R51.9 Headache, unspecified; G89.29 Other chronic pain; G43.E09 Chronic migraine with aura, not intractable, without status migrainosus; A69.20 Lyme disease, unspecified
CPT/HCPCS: 36415; 86617; 86618

== ENCOUNTER 2024-11-13 12:56 | Outpatient (AMB) | payer BC, SELFPAY ==
--- NOTE | 2024-11-13 12:56 | A.OFFVIS_ITS ---
Vital Signs 11/13/24 13:01 Height 5 ft 10 in Weight 156 lb BMI 22.4 Pulse 81 Pulse Source Pulse Oximeter Pulse Oximetry (%) 98 Oxygen Delivery Method Room Air Intake Visit Reasons: Ref.matthew Bowers per Allergies shellfish derived Allergy (Mild, Verified 11/13/24 13:03) Vomiting aspirin Allergy (Unknown, Verified 11/13/24 13:03) Unknown HPI HPI Ref.matthew Bowers per : Details: Patient is here as a referral from Neurology. She reports having Lyme disease multiple times and getting Lyme tests to see how antibodies are doing when she feels ill . She describes flashing lights in eyes that are her Lyme disease and received Doxycycline for 21 days and had some GI distress from it that is resolving. Accompanying lab results show positive IgM and IgG Lyme antibodies. She has no rash,fever,joint swelling ,cardiac abnormalities or any imbedded ticks. 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 Chronic migraine with aura without status migrainosus, not intractable Lyme disease, unspecified Chronic headaches Visual aura Migraine aura occurring with and without headache Numbness and tingling in both hands GERD (gastroesophageal reflux disease) Surgical History H/O: hysterectomy Family History Father Myocardial infarction Mother HTN (hypertension) Family/Other Myocardial infarction Sister Myocardial infarction Social History Alcohol intake: never Patient Tobacco Use Status: Never used Tobacco Review of Systems Const All systems reviewed & are unremarkable except as noted in HPI and below Physical Exam Vital Signs: Last Vital Signs Pulse 81 11/13/24 13:01 Pulse Ox 98 11/13/24 13:01 Oxygen Delivery Method Room Air 11/13/24 13:01 BMI result Body Mass Index 22.4 Const General: cooperative Eyes General: appearance normal, both eyes and all related structures Pupils: Equal, round and reactive pupils present Resp Effort & Inspection: normal respiratory effort Cardio Rate: regular rate GI Inspection: Yes normal to inspection Neuro Cranial nerves: Yes Equal, round and reactive pupils present Assessment & Plan Assessment & Plan (1) Chronic migraine with aura without status migrainosus, not intractable: Code(s): G43.E09 - Chronic migraine with aura, not intractable, without status migrainosus Category: Medical (2) Migraine aura occurring with and without headache: Code(s): G43.109 - Migraine with aura, not intractable, without status migrainosus Category: Medical (3) GERD (gastroesophageal reflux disease): Code(s): K21.9 - Gastro-esophageal reflux disease without esophagitis Category: Medical (4) 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 Antibodies will not be diagnostic of or helpful for treatment of repetitive Lyme per IDSA guidelines. Plan No further lab testing. No clear indication for treatment,see and treat acute Lyme disease per PCP. Prophylaxis 200 mg po Doxycycline prn imbedded tick. Patient may see alternative medicine practitioner prn need. 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
[2024-11-13 13:01] VITALS: PULSE 81; O2SAT 98; BMI 22.4
--- OUTSIDE RECORDS SUMMARY | 2024-11-13 14:48 | XMS_ITS ---
Author Name [facility] Organization Unknown History of Medication Use Medication Directions Dispensed Refills Start Date End Date Stat us minoxidil (LONITEN) 2.5 MG tablet 45 tablet, 0 Refill(s), 0 Refills, 07/24/24 1:01:00 PM EST, Partial fill upon patient request if the prescription is for a schedule II opioid drug. 06/08/2024 active ipratropium (ATROVENT) 0.03 % nasal spray 2 sprays into each nostril 2 (two) times a day. 09/29/2024 active OMEprazole (PriLOSEC) 40 MG capsule Take 40 mg by mouth. 08/04/2024 acti ve Premarin 0.9 MG tablet Take 0.9 mg by mouth. 09/01/2024 active budesonide (PULMICORT) 1 mg/2 mL nebulizer solution 1 mg. 10/17/2023 active diphenhydrAMINE-acet aminophen (Tylenol PM Extra Strength) 25-500 MG Tab 1 tablet. active MANGANESE GLUCONATE PO Magnesium 250 MG Oral Tablet TAKE 1 TABLET DAILY. Quantity: 30; Refills: 6 Active active predniSONE (DELTASONE) 20 MG tablet 2 tabs with breakfast for 2 days, 1 tab with breakfast for 2 days. With food. 09/13/2024 active amLODIPine (NORVASC) 5 MG tablet Take 5 mg by mouth daily. 09/06/2024 active Problems Problem Status Onset Date Problem Type Date of Resolution Source [facility] temporomandibular [facility] active EncounterDiagnosisAct CCT Encounters Encounter Type Encounter Reason Primary Diagnosis Location Date Ambulatory Earache Earache [facility] 09/29/2024 Ambulatory Earache Earache [facility] 09/13/2024 Care Team Organization Name Specialty Phone Email Start Date End Da sundar [place] [facility] 10/11/2024 11/04/2024 [place] [facility] Dar Starks Primary Care 09/14/2024 [facility] KIRA WEAVER Primary Care 08/29/2024
--- OUTSIDE RECORDS SUMMARY | 2024-11-13 14:48 | XMS_ITS | Clinical Summary ---
Author Organization [facility] Address [address] [place] [address] Care Team Providers Care Trust Advisor Name Role Phone Dar Starks MD Primary Care Provider [phone] Allergies Active Allergy Reactions Criticality Noted Date [...] days. With food. 6 tablet 09/13/2024 Active ipratropium (ATROVENT) 0.03 % nasal sprayIndications:Chroni c rhinitis 2 sprays into each nostril 2 (two) times a day. 30 mL 11 09/29/2024 Active Active Problems No known active problems Encounters Date Type Department Care Team Description 09/29/2024 11:30 AM EST Office Visit [facility] [place] [address] [facility] [place] [address] Bella Green PA-C Chronic rhinitis (Primary Dx); Arthralgia of left temporomandibular joint 09/13/2024 3:30 PM EST Office Visit [facility] [place] [address] [place] [address] Bella Green PA-C Arthralgia of left temporomandibular [...] - Inhaled Oxygen Concentration - - Weight 68.5 kg (151 lb) 09/29/2024 11:35 AM EST Height 175.3 cm (5' 9 ) 09/29/2024 11:35 AM EST Body Mass Index 22.3 09/29/2024 11:35 AM EST Plan of Treatment Health Maintenance Due Date [...] 03/02/2024 06/02/2021, 05/31/2013 COVID-19 Vaccine (2 - 2023-2 5 season) 2024 06/02/2021 RSV Vaccine 60 years and older and Patients (1 - 1-dose 75+ series) 2033 Hepatitis B Vaccines Aged Out No long er eligible based on patient's age to complete this topic Care Teams Trust Advisor Relationship Specialty Start Date End Date Dar Starks MD PCP - General Internal Medicine 09/13/24
--- OUTSIDE RECORDS SUMMARY | 2024-11-13 14:48 | XMS_ITS | Clinical Summary ---
Author Organization [facility] Address [address] [place] [address] Care Team Providers Care Master At Arms Name Role Phone Anum Starks Primary Care Provider [phone] Allergies Active Allergy Reactions Criticality Noted Date Comments Aspirin Vomiting 03/02/2024 stomach upset only Shellfish Derived Swelling High Medications delmer [id number] op-man-bor 250-40-125 mg-mg-unit tablet Magnesium 250 MG [...] Info) Description 03/06/2025 10:15 AM EDT Follow-Up [facility] 4th Floor [address], [place] [address] Re Examiner: Yunior Baker NP [address] [place] [address] Health Maintenance Due Date Last Done Comments Cologuard 1958 Colon Cancer Screening 1958 Colonoscopy 1958 FOBT / Fit Test 1958 Hepatitis C Screening 1958 Sigmoidoscopy 1958 Mammogram 1998 Osteoporosis Screening 2008 Pneumococcal Vaccine: 50+ Years (1 of 1 - PCV) 2008 COVID-19 Vaccine ( season) 2024 05/12/2022, 01/02/2022, 06/02/2021, Additional history exists Alcohol/Substance Use Screening 08/02/2024 Depression Screening and Follow-Up 08/02/2024 Health Care Proxy Review 08/02/2024 Social Drivers of Health Annual Screening 08/02/2024 Basic Metabolic Panel 03/02/2025 03/02/2024 Influenza Vaccine (Season Ended) 2025 07/15/2022, 07/21/2021, 05/15/2020, Additional history exists DTaP,Tdap,and Td Vaccines (2 - Td or Tdap) 08/28/2031 08/28/2021 RSV Vaccine (60+ years old and patients) (1 - 1-dose 75+ series) 2033 Zoster Vaccines Completed 01/27/2021, 09/17/2020 Hepatitis B Vaccines Aged Out No long er eligible based on patient's age to complete this topic Procedures * Due to [place] [employer] law, this organization might not be sharing negative HIV tests. Procedure Name Priority Date/Time Associated Diagnosis Comments BASIC METABOLIC PANEL Routine 03/02/2024 11:55 AM EDT High risk medication use from Last 3 Months or Most Recently Relevant to Health Maintenance Results * Due to [place] [employer] law, this organization might not be sharing negative HIV tests. * Basic Metabolic Panel (03/02/2024 11:55 AM EDT) NA 138 135 - 145 mmol/L 03/02/2024 1:27 PM EDT [facility] K 4.3 3.5 - 5.3 mmol/L 03/02/2024 1:27 PM EDT [facility] Cl 104 98 - 107 mmol/L 03/02/2024 1:27 PM EDT [facility] CO2 24 24 - 32 mmol/L 03/02/2024 1:27 PM EDT [facility] BUN 14 7 - 23 mg/dL 03/02/2024 1:27 PM EDT [facility] Creatinine 0.86 0.50 - 1.20 mg/dL 03/02/2024 1:27 PM EDT [facility] Glucose 96 65 - 99 mg/dL 03/02/2024 1:27 PM EDT [facility] Calcium 9.7 8.6 - 10.5 mg/dL 03/02/2024 1:27 PM EDT [facility] Anion Gap 10 5 - 15 [facility] 03/02/2024 1:27 PM EDT [facility] eGFR 75 >=60 mL/min/1. 73m2 [facility] 03/02/2024 1:27 PM EDT [facility] Comment:The estimated glomer ular [...] 03/02/2024 11:55 AM EDT us Yunior Rutledge ROAD MACHINE OPERATOR LAB BLOOD ORDERABLES Final R esult [facility] [address] [place] [address], [place] from Last 3 Months or Most Recently Relevant to Health Maintenance Insurance [employer] Care Teams Master At Arms Relationship Specialty Start Date End Date Anum Starks [address] [place] [id number] PCP - General Internal Medicine 11/12/23
--- OUTSIDE RECORDS SUMMARY | 2024-11-13 14:48 | XMS_ITS | Referral Summary ---
Author Organization [facility] Address [address] [place] [address] Care Team Providers Care Process Mechanic Name Role Phone Anum Starks Primary Care Provider [phone] Allergies Active Allergy Reactions Criticality Noted Date Comments Aspirin Vomiting 03/02/2024 stomach upset only Shellfish Derived Swelling High Medications delmer [id number]-[id number]-Zn-c op-man-bor 250-40-125 mg-mg-unit tablet Magnesium 250 MG [...] Info) Description 03/06/2025 10:15 AM EDT Follow-Up [facility] 4th Floor [address], [place] [address] Door Repairman: Yunior Baker NP [address] [place] [address] Procedures * Due to [place] [employer] law, this organization might not be sharing negative HIV tests. Procedure Name Priority Date/Time Associated Diagnosis Comments BASIC METABOLIC PANEL Routine 03/02/2024 11:55 AM EDT High risk medication use from Last 3 Months or Most Recently Relevant to Health Maintenance Results * Due to [place] [employer] law, this organization might not be sharing negative HIV tests. * Basic Metabolic Panel (03/02/2024 11:55 AM EDT) NA 138 135 - 145 mmol/L 03/02/2024 1:27 PM EDT [facility] K 4.3 3.5 - 5.3 mmol/L 03/02/2024 1:27 PM EDT [facility] Cl 104 98 - 107 mmol/L 03/02/2024 1:27 PM EDT [facility] CO2 24 24 - 32 mmol/L 03/02/2024 1:27 PM EDT [facility] BUN 14 7 - 23 mg/dL 03/02/2024 1:27 PM EDT [facility] Creatinine 0.86 0.50 - 1.20 mg/dL 03/02/2024 1:27 PM EDT [facility] Glucose 96 65 - 99 mg/dL 03/02/2024 1:27 PM EDT [facility] Calcium 9.7 8.6 - 10.5 mg/dL 03/02/2024 1:27 PM EDT [facility] Anion Gap 10 5 - 15 [facility] MANUAL 03/02/2024 1:27 PM EDT [facility] eGFR 75 >=60 mL/min/1. 73m2 [facility] MANUAL 03/02/2024 1:27 PM EDT [facility] Comment:The estimated glomer ular [...] EDT 03/02/2024 11:55 AM EDT Yunior Rutledge [employer] CONSULT[employer] LAB BLOOD ORDERABLES Final R esult [facility] [address] [place] [address], from Last 3 Months or Most Recently Relevant to Health Maintenance [place] [address] [place] [address] FEDERAL Care Teams Process Mechanic Relationship Specialty Start Date End Date Anum Starks [address] [facility] [place] [address] PCP - General Internal Medicine 11/12/23
--- OUTSIDE RECORDS SUMMARY | 2024-11-13 14:48 | XMS_ITS | Clinical Summary ---
Author Organization [facility] Address [address] [place] [address] Care Team Providers Care Accounting Software Specialist Name Role Phone Unknown, Primary Care [...] Depression Screening 1970 Preventative Health Evaluation 1976 Colon Cancer Screening (Colonoscopy) 10/25/2003 Breast Cancer [...] age to complete this topic Care Teams Accounting Software Specialist Relationship Specialty Start Date End Date Unknown, PCP - General 07/08/22
--- OUTSIDE RECORDS SUMMARY | 2024-11-13 14:48 | XMS_ITS | Clinical Summary ---
Author Organization [facility] [address] [place] [address] [place] [phone] Phone Care Team Providers Care Rehab Department Manager Name Role Phone Dar Starks MD Primary Care Provider [phone] Allergies Active Allergy Reactions Criticality Noted Date [...] mg total) by mouth. 09/16/19 24 Active magnesium carb,citrate,o xide (Magnesium Complex) 300 [...] day. 90 tablet 1 09/06/19 25 Active omeprazole (PriLOSEC) [address] capsule Take 1 capsule (40 mg total) by mouth 1 (one) time each day. 90 capsule 1 09/18/19 25 Active Premarin 0.9 mg tablet Take 1 tablet (0.9 mg total) by mouth 1 (one) time each day. 90 tablet 11/02/19 25 Active estradioL (ESTRACE) 0.01 % (0.1 mg/gram) vaginal cream 1g PV twice weekly 42.5 g 4 11/02/19 25 Active estradioL (ESTRACE) 0.01 % (0.1 mg/gram) vaginal cream Apply 1g PV nightly for 2 weeks and then 1-2 nights a week thereafter 07/07/20 22 025 Discontinued(Re order) Premarin 0.9 mg tablet Take 1 tablet (0.9 mg total) by mouth 1 (one) time each day. 90 tablet 09/15/19 025 Discontinued(Re order) doxycycline (VIBRAMYCIN) 100 mg capsule Take 1 capsule (100 mg total) by mouth 2 (two) times a day for 21 days. Take with at least 8 ounces (large glass) of water, do not lie down for 30 minutes after. Administer 2 hours before or after multivitamins , antacids, or other products containing polyvalent cations (i.e., calcium, iron, magnesium, selenium, zinc). 42 each 10/04/19 25 025 Discontinued doxycycline (Monodox) 100 mg capsule Take 1 capsule (100 mg total) by mouth 2 (two) times a day for 15 days. Take with at least 8 ounces (large glass) of water, do not lie down for 30 minutes after. Administer 2 hours before or after multivitamins , antacids, or other products containing polyvalent cations (i.e., calcium, iron, magnesium, selenium, zinc). 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 12/20 stable Cervicalgia 09/05/2019 Overview (08/07/2024): Botox injections; Dr Burns Hypertension 09/05/2019 Contact dermatitis 10/07/2018 Cystocele with rectocele 03/01/2018 Diastasis recti 02/28/2018 Facial rhytids 02/28/2018 Neuropathy 03/13/2016 Lyme disease 09/18/2012 Encounters Date Type Department Care Team Description 11/01/2024 10:30 AM EDT Office Visit Obstetrics [facility]necology [facility] [address] [place] [address] Viktoriya Adorno DO Encounter for annual routine gynecological examination (Primary Dx); On hormone replacement therapy 10/20/2024 Telephone Pediatrics - [facility] [address] [place] [address] Dar Starks MD Medication Problem 10/17/2024 Telephone Patent Counsel - [facility] [address] [place] [phone] Dar Starks MD Request For Order(s) ([facility]) 09/06/2024 3:04 PM EST - 09/06/2024 11:59 PM EST Hospital Encounter Xray - [facility] [address] [place] [address] Viral URI with cough; Moderate persistent asthma with exacerbation; Wheezing Discharge Disposition: Home or Self Care 09/06/2024 2:45 PM EST Office Visit Patent Counsel - [facility] [address] [place] [address] Dar Starks MD Primary hypertension (Primary Dx); Viral URI with cough; Moderate persistent asthma with exacerbation; Wheezing 08/28/2024 Telephone Patent Counsel - [facility] [address] [place] [address] Dar Starks MD Earache from Last 3 Months Immunizations Name Administration [...] x2 (plate, subsequently removed) BREAST SURGERY PROCEDURE: [place] UNLISTED PROCEDURE BREAST; COMMENT: implants OTHER SURGICAL [...] Sign Reading Time Taken Comments Blood Pressure 140/98 11/01/2024 10:48 AM EDT Pulse 81 11/01/2024 10:48 AM EDT Temperature - - Respiratory Rate 18 11/01/2024 10:48 AM EDT Oxygen Saturation - - Inhaled Oxygen Concentration - - Weight 69.7 kg (153 lb 9.6 oz) 11/01/2024 10:48 AM EDT Height 175.3 cm (5' 9 ) 11/01/2024 10:48 AM EDT Body Mass Index 22.68 11/01/2024 10:48 AM EDT Plan of Treatment Upcoming Encounters Date Type Department Care Team (Late st Contact Info) Description 01/01/2025 1:30 PM EDT Appointment Radiology Department [address] [phone] Health Maintenance Due Date Last Done Comments Pneumococcal Vaccine: 50+ Years (1 of 2 - PCV) 1977 RSV Immunization Adult Patients (1 - Risk 60-74 years 1-dose series) 2018 Depression Screening 07/11/2022 Social Influencers of Health Screening 07/11/2022 Falls Risk Assessment 10/25/2023 COVID-19 Vaccine ( season) 2024 05/12/2022, 01/02/2022, 06/02/2021, Additional history exists Hypertension/CHF/CAD Annual BMP Blood Test 03/02/2025 03/02/2024, 01/28/2023 Influenza Vaccine (Season Ended) 2025 07/15/2022, 07/21/2021, 06/02/2021, Additional history exists Colorectal Cancer Screening: Colonoscopy 06/13/2026 06/13/2021 Breast [...] age to complete this topic Meningococcal B Vaccine Aged Out No l onger eligible based on patient's age to complete this topic RSV Immunization Patients Under 20 months Aged Out No longer eligible based on patient's age to complete this topic Varicella Vaccines Aged Out No longer eligible based on patient's age to complete this topic Procedures Procedure Name Priority Date/Time Associated Diagnosis Comments EXTERNAL CLINICAL LAB 2024 EXTERNAL CLINICAL LAB 10/04/2024 EXTERNAL CLINICAL LAB 10/04/2024 EXTERNAL CLINICAL LAB 10/02/2024 RESPIRATORY VIRUS PANEL MOLECULAR STUDY Routine 09/06/2024 4:01 PM EST Viral URI with cough XR CHEST 2 VIEWS Routine 09/06/2024 3:10 PM EST Viral URI with cough Moderate persistent asthma with exacerbation Wheezing MG MAMMO DIGITAL DIAGNOSTIC W FAM LEFT Routine 08/03/2024 11:01 AM EST Abnormal mammogram DXA BONE DENSITY STUDY 1+ SITS AXIAL SKEL Routine 12/02/2023 1:50 PM EDT Eosinophilic esophagitis ANNUAL BMP BLOOD TEST Routine 01/28/2023 LIPID PANEL Routine 06/11/2022 COLONOSCOPY Routine 06/13/2021 HEPATITIS C SCREENING Routine 02/04/2021 from Last 3 Months or Most Recently Relevant to Health Maintenance Results * External clinical lab (2024) Only the most recent of4 resultswithin the time period is included. us Provider [facility] LAB BLOOD ORDERABLES Fin al Result * (ABNORMAL) Respiratory virus panel molecular study (09/06/2024 4:01 PM EST) Adenovirus Detection by PCR Not Detected Not Detected LAB MICROBIOLOGY METHOD 09/06/2024 9:29 PM EST [facility] Influenza B PCR Not Detected Not Detected LAB MICROBIOLOGY METHOD 09/06/2024 9:29 PM EST [facility] Coronavirus 229E Not Detected Not Detected LAB MICROBIOLOGY METHOD 09/06/2024 9:29 PM [facility] Coronavirus HKU1 Not Detected Not Detected LAB MICROBIOLOGY METHOD 09/06/2024 9:29 PM [facility] Coronavirus OC43 Not Detected Not Detected LAB MICROBIOLOGY METHOD 09/06/2024 9:29 PM [facility] Coronavirus NL63 Not Detected Not Detected LAB MICROBIOLOGY METHOD 09/06/2024 9:29 PM [facility] Parainfluenza Virus 1 Not Detected Not Detected LAB MICROBIOLOGY METHOD 09/06/2024 9:29 PM [facility] Parainfluenza Virus 2 Not Detected Not Detected LAB MICROBIOLOGY METHOD 09/06/2024 9:29 PM [facility] Parainfluenza Virus 3 Not Detected Not Detected LAB MICROBIOLOGY METHOD 09/06/2024 9:29 PM [facility] Parainfluenza Virus 4 Not Detected Not Detected LAB MICROBIOLOGY METHOD 09/06/2024 9:29 PM [facility] RSV PCR Not Detected Not Detected LAB MICROBIOLOGY METHOD 09/06/2024 9:29 PM [facility] Human Metapneumovirus A and B Not Detected Not Detected LAB MICROBIOLOGY METHOD 09/06/2024 9:29 PM EST [facility] Rhinovirus/Entero virus Not Detected Not Detected LAB MICROBIOLOGY METHOD 09/06/2024 9:29 PM [facility] Bordetella pertussis Not Detected Not Detected LAB MICROBIOLOGY METHOD 09/06/2024 9:29 PM [facility] Bordetella parapertussis Not Detected Not Detected LAB MICROBIOLOGY METHOD 09/06/2024 9:29 PM [facility] Influenza A H1N1 PDM09 Detected(A ) Not Detected LAB MICROBIOLOGY METHOD 09/06/2024 9:29 PM [facility] Mycoplasma pneumo by PCR Not Detected Not Detected LAB MICROBIOLOGY METHOD 09/06/2024 9:29 PM [facility] Chlamydia pneumoniae Not Detected Not Detected LAB MICROBIOLOGY METHOD 09/06/2024 9:29 PM [facility] SARS COV-2 Not Detected Not Detected LAB MICROBIOLOGY METHOD 09/06/2024 9:29 PM [facility] Swab Both anterior nares / Unknown Non-blood Collection / Unknown 09/06/2024 4:01 PM EST 09/06/2024 4:03 PM EST [facility] - 09/06/2024 9:29 PM EST Testing was performed using the ThromboVisione Respiratory Pathogen PCR Assay. All results must [...] Dar Starks MD LAB MICROBIOLOGY - GENERAL TOM CARBALLO Final Result [facility] [address] [place] [address], * XR Chest 2 Views (09/06/2024 3:10 [...] Signed Date: 09/06/2024 15:27 ET Workstation ID: [id number] Transcribed By: Self Edit Transcribed Date: 09/06/2024 [...] Signed Date: 09/06/2024 15:27 ET Workstation ID: [id number] Transcribed By: Self Edit Transcribed Date: 09/06/2024 15:26 ET Dar Starks MD IMG XR PROCEDURES Final Result * MG Mammo Digital [...] left breast in 6 months. Mammo Location: [facility], [address] [place] [address], [id number], . -------- FINAL REPORT -------- Dictated By: Jacqueline Rodriguez Dictated Date: 08/03/2024 11:10 ET Assigned Physician: Jacqueline Rodriguez Reviewed and Electronically Signed By: Jacqueline Rodriguez Signed Date: 08/03/2024 11:45 ET Workstation ID: [id number] Transcribed By: Self Edit Transcribed Date: 08/03/2024 [...] left breast in 6 months. Mammo Location: [facility], [address] [place] [address], [id number], . -------- FINAL REPORT -------- Dictated By: Jacqueline Rodriguez Dictated Date: 08/03/2024 11:10 ET Assigned Physician: Jacqueline Rodriguez Reviewed and Electronically Signed By: Jacqueline Rodriguez Signed Date: 08/03/2024 11:45 ET Workstation ID: [id number] Transcribed By: Self Edit Transcribed Date: 08/03/2024 [...] (World Health Organization Fracture Risk Assessment) [facility] Department of Internal Medicine recommends using [...] (World Health Organization Fracture Risk Assessment) [facility] Department of Internal Medicine recommendsusing National [...] or over-estimation of fracture risk by FRAX. us Marcos Pérez MD IM DXA PROCEDURES Final Re sult * Annual BMP Blood Test (01/28/2023) [facility] Annual BMP Blood Test Abstracted [facility] Provider HEALTH MAINTENANCE Final Result * (ABNORMAL) Lipid panel (06/11/2022) [facility] LDL/HDL Ratio 4 0 - 4 Triglycerides 239(A) 0 - 150 mg/dL Cholesterol 226(A) 0 - 200 mg/dL HDL 58 >=40 mg/dL LDL Cholesterol 121(A) 0 - 100 mg/dL Blood Venous blood specimen / Unknown Result [facility] Provider LAB BLOOD ORDERABLES Kelly l Result * Colonoscopy (06/13/2021) [facility] Colonoscopy No Interpretation , Abstracted Anatomical Region Laterality Modality Other Result [facility] Provider HEALTH MAINTENANCE Final Result * Hepatitis C Screening (02/04/2021) [facility] Hepatitis C Screening Abstracted Result [facility] Provider HEALTH MAINTENANCE Final Result from Last 3 Months or Most Recently Relevant to Health Maintenance Insurance [facility] Care Teams Rehab Department Manager Relationship Specialty Start Date End Date Dar Starks MD [address] [place] [address] PCP - General Internal Medicine 10/20/21
== END 2024-11-13 13:41 | disposition home or self-care (01) ==
LOC: HO.HID 12:56
PROVIDERS: PCP Internal Medicine; Visit Provider Internal Medicine
DX: G43.E09 Chronic migraine with aura, not intractable, without status migrainosus (principal); K21.9 Gastro-esophageal reflux disease without esophagitis; Z01.84 Encounter for antibody response examination
CPT/HCPCS: 99203

== ENCOUNTER → 2024-11-13 12:56 | Outpatient (BNVA) | payer BC, SELFPAY | PROVIDERS: PCP Internal Medicine; Visit Provider Internal Medicine | DX: Z13.89 Encounter for screening for other disorder (principal) ==

== ENCOUNTER 2025-04-09 11:34 | Outpatient (AMB) | payer BC, SELFPAY ==
[2025-04-09 11:37] VITALS: BP 118/70; PULSE 82; O2SAT 99; BMI 21.5
--- NOTE | 2025-04-09 11:37 | MHC.OFFVIS ---
Vital Signs 04/09/25 11:37 Height 5 ft 10 in Weight 150 lb 2 oz BMI 21.5 BP 118/70 Blood Pressure Location Rt brachial Position Sitting Pulse 82 Pulse Source Pulse Oximeter Pulse Oximetry (%) 99 Oxygen Delivery Method Room Air Intake Visit Reasons: 6m follow up Intake Note: Follow up Spondylosis without myelopathy or radiculopathy, cervical region, migraine Shot Core Drill Operator Helper Required: No Accompanied by: Self / Same As Patient Allergies shellfish derived Allergy (Mild, Verified 04/09/25 11:37) Vomiting aspirin Allergy (Unknown, Verified 04/09/25 11:37) Unknown HPI Comments Details: 64y/o female with cervical spondylosis and dystonia , jaw tremors comes for follow up. she reports daily ocular migraines everyday-bright white or colored paimiut in whit visual rosales with headaches.she says it lasts the whole day now.she saw ID specialist and was told that she does not have Lyme. she says everytime she takes a course of doxycycline the ocular symptoms resolve.she is upset and wants a different specialist. Her neck is stable and manageable. History from last visit 6 mths ago- she is following up with [facility] . she had a second ablation in her neck 6 weeks ago and has not noticed a difference.C3-4-5. Last ablation was RF at C 5-6-7. The tingling in posterior head are better. she still ahs a daily low grade headache 4/10 and has visual aura for 20 minutes. she saw milk drying machine operator in Aug 2023 . Lyme test was positive in January 2024- had another course of antibiotics. ABout 6 year she started having vision issues - she describes like a crescent shaped visual field loss in whit eyes- when she is reading she has some words that are blurry and when she closes her eye she sees bright kaliedoscope patterns which last 20 minutes and had headaches.the headaches are associated with photophobia nausea etc. She has had multiple lyme infections - and everytime she has similar headaches with visual issues. [facility] Medical History Immunity to Lyme disease determined by serologic test Chronic migraine with aura without status migrainosus, not intractable Lyme disease, unspecified Chronic headaches Visual aura Migraine aura occurring with and without headache Numbness and tingling in both hands GERD (gastroesophageal reflux disease) Surgical History H/O: hysterectomy Family History Father Myocardial infarction Mother HTN (hypertension) Family/Other Myocardial infarction Sister Myocardial infarction Social History Alcohol intake: never Patient Tobacco Use Status: Never used Tobacco Physical Exam Vital Signs: Last Vital Signs Pulse 82 04/09/25 11:37 BP 118/70 04/09/25 11:37 Pulse Ox 99 04/09/25 11:37 Oxygen Delivery Method Room Air 04/09/25 11:37 BMI result Body Mass Index 21.5 Const Orientation/consciousness: patient oriented x3 HEENT Other: restricted range of motion Spasmodic torticollis Head: Yes normocephalic and Yes atraumatic Neuro General: patient oriented x3, gait normal, tone normal, moves all extremities and no focal motor deficits Assessment & Plan Assessment & Plan (1) Chronic migraine with aura without status migrainosus, not intractable: Code(s): G43.E09 - Chronic migraine with aura, not intractable, without status migrainosus Category: Medical (2) Cervical spondylosis: Code(s): M47.812 - Spondylosis without myelopathy or radiculopathy, cervical region Category: Medical (3) Visual aura: Code(s): H53.9 - Unspecified visual disturbance Category: Medical Plan ID notes discussed Restart cyclobenzaprine 5 mg qhs ( she has meds at home ) Increase Amitriptyline 50mg qhs and magnesium 300mg qhs Vit B 2 400mg qam 'sumatriptan 50mg prn F/u [facility] Check with PCP for new ID Orders: Orders MR head/brain wo con Today G43.109 - Migraine with aura, not intractable, without status migrainosus, H53.9 - Unspecified visual disturbance Coding Level of Care Code Est Pt Level 4 (22727) Complex EM visit Add On G2211 Diagnoses Chronic migraine with aura without status migrainosus, not intractable G43.E09 Cervical spondylosis M47.812 Visual aura H53.9
--- OUTSIDE RECORDS SUMMARY | 2025-04-09 14:14 | XMS_ITS | Clinical Summary ---
Author Organization [facility] Address [address] [place] [address] Care Team Providers Care Printing Pressman Name Role Phone Dar Starks MD Primary Care Provider Unavaila ble Allergies Active Allergy Reactions Criticality Noted Date Comments Aspirin Nausea And Vomiting, GI Intolerance/Nausea/Vomitin g Low 02/28/2018 stomach upset only Medications amLODIPine (NORVASC) 5 MG tablet Take 5 mg by mouth daily. 09/06/19 25 Active budesonide (PULMICORT) 1 mg/2 mL nebulizer solution 1 mg. 10/17/19 24 Active diphenhydrAMINE-acet aminophen (Tylenol PM Extra Strength) 25-500 MG Tab 1 tablet. Active Premarin 0.9 MG tablet Take 0.9 mg by mouth. 09/01/19 25 Active MANGANESE GLUCONATE PO Magnesium 250 MG Oral Tablet TAKE 1 TABLET DAILY. Quantity: 30; Refills: 6 Active Active minoxidil (LONITEN) 2.5 MG tablet 45 tablet, 0 Refill(s), 0 Refills, 07/24/24 1:01:00 PM EST, Partial fill upon patient request if the prescription is for a schedule II opioid drug. 06/08/20 24 Active OMEprazole (PriLOSEC) 40 MG capsule Take 40 mg by mouth. 08/04/19 25 Active predniSONE (DELTASONE) 20 MG tabletIndications:Ar thralgia of left temporomandibular joint,Left ear pain 2 tabs with breakfast for 2 days, 1 tab with breakfast for 2 days. With food. 6 tablet 09/13/19 25 Active ipratropium (ATROVENT) 0.03 % nasal sprayIndications:Chr onic rhinitis 2 sprays into each nostril 2 (two) times a day. 30 mL 11 09/29/19 25 Active Active Problems No known active problems Social History Tobacco Use Types Packs/Day Years Used Date Smoking Tobacco: Unknown Tobacco Cessation:Counseling Given: Not Answered Alcohol Use Standard Drinks/Week Comments Never 0 (1 standard drink = 0.6 oz pur e alcohol) Comments Unknown Sex and Gender Information Value Date Recorded Sex Assigned at Female 09/07/2024 10:06 AM EST Legal Sex Female 4:36 PM EDT Gender Identity Female 09/07/2024 10:06 AM EST [...] Health Maintenance Due Date Last Done Comments Advance Care Planning 1960 Hepatitis C Virus Screening 1960 DTaP/Tdap/Td Vaccines (1 - Tdap) 1977 Mammogram 1998 Colonoscopy 10/25/2003 Pneumococcal Vaccines 50+ (1 of 1 - PCV) 2008 Zoster (Shingles) Vaccine (1 of 2) 2008 DXA Bone Density (Females,Ages 65 and older) 10/25/2023 COVID-19 Vaccine (2 - 2023-2 5 season) 2024 06/02/2021 Influenza Vaccine 03/02/2025 06/02/2021, 05/31/2013 RSV Vaccine 60 years and older and Patients (1 - 1-dose 75+ series) 2033 Hepatitis B Vaccines Aged Out No long er eligible based on patient's age to complete this topic Insurance [facility] [employer] Care Teams Printing Pressman Relationship Specialty Start Date End Date Dar Starks MD PCP - General Internal Medicine 09/13/24
--- OUTSIDE RECORDS SUMMARY | 2025-04-09 14:14 | XMS_ITS | Encounter Summary ---
Author Organization [facility] Address [address] [facility] [address] [place] [address] Phone Care Team Providers Care Security System Engineer Name Role Phone Patricia Vasquez MD Primary Care Provider [phone] Encounter Details Date Type Department Care Team (Late st Contact Info) Description 08/27/2022 Telephone [facility] [address] [place] [address], [address] [place] [address] Dwain Jaramillo MD [address] [place] [address] [address] [place] [address] [email or web address] [place] Social History Tobacco Use Types Packs/Day Years Used Date Smoking Tobacco: Never Comments Unknown Sex and Gender Information Value Date Recorded Sex Assigned at Female 06/17/2022 6:48 AM EST Legal Sex Female 7:03 PM EST Gender Identity Female 06/17/2022 6:48 AM EST Sexual Orientation Choose not to disclose 2021 6:48 AM EST documented as of this encounter Plan of Treatment Not on file documented as of this encounter Visit Diagnoses Not on filedocumented in this encounter Care Teams Security System Engineer Relationship Specialty Start Date End Date Patricia Vasquez MD [address] [place] [address] PCP - General Internal Medicine 09/10/15 documented as of this encounter Additional Source Comments The information contained in this document represents components of the legal health record. It is not the complete legal health record.[facility]
--- OUTSIDE RECORDS SUMMARY | 2025-04-09 14:14 | XMS_ITS | Encounter Summary ---
Author Organization [facility] Address [address] [address] [place] [address] Phone Care Team Providers Care Die Sizer Name Role Phone Patricia Vasquez MD Primary Care Provider [phone]- [phone] Encounter Details Date Type Department Care Team (Late st Contact Info) Description 08/27/2022 Telephone [facility] [address] [place] [address], [address] [place] [address] Dwain Jaramillo MD [address] [place] [address] [address] [place] [address] [email or web address] [place] Social History Tobacco Use Types Packs/Day [...] on filedocumented in this encounter Care Teams Die Sizer Relationship Specialty Start Date End Date Patricia Vasquez MD [address] [place] [address] PCP - General Internal Medicine 09/10/15 documented as of this encounter Additional Source Comments The information contained in this document represents components of the legal health record. It is not the complete legal health record.[facility]
--- OUTSIDE RECORDS SUMMARY | 2025-04-09 14:14 | XMS_ITS | Encounter Summary ---
Author Organization [facility] Address [address] [place] [address] Phone Care Team Providers Care Director Of Blood Name Role Phone Patricia Vasquez MD Primary Care Provider [phone]- [phone] Encounter Details Date Type Department Care Team (Late st Contact Info) Description 07/13/2022 Telephone [facility] [address] [place] [address], [address] [place] [address] Dwain Jaramillo MD [address] [place] [address] [address] [place] [address] [email or web address]. [place] Social History Tobacco Use Types Packs/Day [...] on filedocumented in this encounter Care Teams Director Of Blood Relationship Specialty Start Date End Date Patricia Vasquez MD [address] [place] [address] PCP - General Internal Medicine 09/10/15 documented as of this encounter Additional Source Comments The information contained in this document represents components of the legal health record. It is not the complete legal health record.[facility]
--- OUTSIDE RECORDS SUMMARY | 2025-04-09 14:15 | XMS_ITS | Encounter Summary ---
Author Organization [facility] Address [address] [place] [address] Care Team Providers Care Residue Furnace Operator Name Role Phone Anum Starks Primary Care Provider [phone] Reason for Visit * Reason Onset Date Comments Non-Covered/Excluded - PAC Retail Pharm Denial 0 03/08/2025 Encounter Details Date Type Department Care Team (Late st Contact Info) Description 03/08/2025 Telephone [facility] 4th Floor [address], [place] [address] Yarn Washer: Yunior Baker NP [address] [place] [id number] Non-Covered/Excluded - PAC Retail Pharm Denial Social History Tobacco Use Types Packs/Day Years [...] Orientation Straight 06/07/2024 3: 56 PM EST documented as of this encounter Miscellaneous Notes * Telephone Encounter - Arina Barrientos LPN - 03/08/2025 3:18 PM EDT Pt aware, will use goodrx * Telephone Encounter - Mamie Orozco CPhT - 03/08/2025 2:44 PM EDT [place] for Tretinoin denied. Per insurance medication is not covered/ excluded. The next steps for moving forward will be to inform patient that the medication is not covered by their insurance and determine plan of care. documented in this encounter Plan of Treatment Not on file documented as of this encounter Visit Diagnoses Not on filedocumented in this encounter Care Teams Residue Furnace Operator Relationship Specialty Start Date End Date Anum Starks [address] [facility] [place] [address] PCP - General Internal Medicine 11/12/23 documented as of this encounter
--- OUTSIDE RECORDS SUMMARY | 2025-04-09 14:15 | XMS_ITS | Clinical Summary ---
Author Organization [facility] Address [address] [place] [address] Care Team Providers Care Maintenance Service Dispatcher Name Role Phone Unknown, Primary Care Provider [...] - PCV) 10/25/2023 COVID-19 Vaccine (4 - 2024-2 6 season) 2025 06/02/2021, 09/27/2020, 09/06/2020 Influenza Vaccine (#1) 2025 DTap / Tdap / Td (2 - Td or Tdap) 08/28/2031 08/28/2021 RSV Adult > 60+ Yrs or (1 - 1-dose 75+ series) 2033 Hepatitis B Vaccines Aged Out No long er eligible based on patient's age to complete this topic RSV Ped < 20 months Aged Out No longe r eligible based on patient's age to complete this topic Care Teams Maintenance Service Dispatcher Relationship Specialty Start Date End Date Unknown, PCP - General 07/08/22
--- OUTSIDE RECORDS SUMMARY | 2025-04-09 14:15 | XMS_ITS | Clinical Summary ---
Author Organization [facility] Address [address] [address] Phone Care Team Providers Care Stage Set Designer Name Role Phone Patricia Vasquez MD Primary Care Provider [phone]- [phone] Allergies No known active allergies Medications pregabalin (LYRICA) 75 MG capsule Take 2 capsules by mouth 2 (two) times a day. 6 Active CELECOXIB (CELEBREX ORAL) Acti ve Medication-Free Text Ranitidine HCl Activ e Medication-Free Text Magnesium Active Medication-Free Text Premarin Active tretinoin (RETIN-A) 0.025 % cream Apply topically nightly at bedtime. 45 g 2 Active hydroquinone 4 % cream Apply topically 2 (two) times a day. 1 g 1 2 Active oxyCODONE-aceta minophen (PERCOCET) 5-325 mg per tablet Take 1 tablet by mouth every 6 (six) hours as needed for pain (specific location in comments). Partial fill ok 10 tablet 2 Active Active Problems Problem Noted Date Diagnosed Date Subjective visual disturbance 08/30/2017 Family History Medical History Relation Comments Cardiovascular disease Father Relation Status Comments Father Social History Tobacco Use Types Packs/Day Years Used Date Smoking Tobacco: Never Tobacco Cessation:Counseling Given: Not Answered Education Answer Date Recorded Are you interested in more education? Not on erica e 12/14/2022 Are you concerned about learning? Not on file 12/14/2022 No 12/14/2022 No 12/14/2022 Digital Access Answer Date Recorded No 12/27/2022 No 12/27/2022 Reliable internet access at home? Not on file 12/27/2022 Device with a working camera? Not on file Comments Unknown Sex and Gender Information Value Date Recorded Sex Assigned at Female 06/17/2022 6:48 AM EST Legal Sex Female 7:03 PM EST Gender Identity Female 06/17/2022 6:48 AM EST Sexual Orientation Choose not to disclose 2021 6:48 AM EST Last Filed Vital Signs Vital Sign Reading Time Taken Comments Blood Pressure 137/91 11/06/2022 11:02 AM EDT Pulse 86 11/06/2022 11:02 AM EDT Temperature 36.4 C (97.6 F) 11/06/2022 11:02 AM EDT Respiratory Rate 16 08/07/2022 8:49 AM EST Oxygen Saturation 98% 11/06/2022 11:02 AM EDT Inhaled Oxygen Concentration - - Weight 69.4 kg (153 lb) 12/17/2015 1:58 AM EDT Height 177.8 cm (5' 10 ) 12/17/2015 1:58 AM EDT Body Mass Index 21.95 12/17/2015 1:58 AM EDT Plan of Treatment Health Maintenance Due Date Last Done Comments Adult Td,Tdap Booster 1960 LIPID PANEL 1958 DEPRESSION SCREENING 1970 HEPATITIS C SCREENING 1976 MAMMOGRAM 1998 COLOGUARD 10/25/2003 COLONOSCOPY 10/25/2003 COLORECTAL CANCER SCREENING 10/25/2003 FIT TEST 10/25/2003 FOBT 10/25/2003 SIGMOIDOSCOPY 10/25/2003 VIRTUAL COLONOSCOPY 10/25/2003 PNEUMOCOCCAL VACCINES (50+ years) (1 of 1 - PCV) 2008 ZOSTER VACCINES (2 of 2) 03/24/2021 01/27/2021 OSTEOPOROSIS SCREENING INITI AL (ONE-TIME) 10/25/2023 COVID-19 VACCINE (4 - 2023-2 5 season) 2024 05/08/2021, 09/27/2020, 09/06/2020 INFLUENZA VACCINE (#1) 2025 RSV VACCINE (1 - 1-dose 75+ series) 2033 SMOKING STATUS SCREENING (On ce After 26 Yrs) Completed 07/31/2022 HEPATITIS A VACCINES Aged Out No long er eligible based on patient's age to complete this topic HIB VACCINES Aged Out No longer eligi ble based on patient's age to complete this topic MENINGOCOCCAL VACCINES (ACWY) Aged Out No longer eligible based on patient's age to complete this topic MENINGOCOCCAL VACCINES (B) Aged Out N o longer eligible based on patient's age to complete this topic Medical Devices Not on file Insurance Evri [facility] Evri [facility] Evri [facility]ri [facility] [place] [address] [facility] Care Teams Stage Set Designer Relationship Specialty Start Date End Date Patricia Vasquez MD [address] [place] [address] PCP - General Internal Medicine 09/10/15 Additional Source Comments The information contained in this document represents components of the legal health record. It is not the complete legal health record.[facility]
--- OUTSIDE RECORDS SUMMARY | 2025-04-09 14:15 | XMS_ITS | Clinical Summary ---
Author Organization [facility] [address] [place] [address] [place] [phone] Phone Care Team Providers Care Skidder Loader Name Role Phone Dar Starks MD Primary Care Provider [phone] Allergies Active Allergy Reactions Criticality Noted Date Comments Adhesive 09/05/2019 Dermabond caused rash Aspirin Nausea And Vomiting 02/28/2018 stomach upset only Shellfish Containing Products Swelling High 07/24/2024 Other Reaction(s): eyes swell shut Medications albuterol HFA (PROAIR HFA ; PROVENTIL HFA ; VENTOLIN HFA) 90 mcg/actuation inhaler Inhale 2 puffs by mouth. 2 Active amitriptyline (ELAVIL) 25 mg tablet 4 Active budesonide (PULMICORT) 1 mg/2 mL nebulizer solution 4 Active cyclobenzaprin e (FLEXERIL) 10 mg tablet Take 1 tablet (10 mg total) by mouth. 4 Active magnesium carb,citrate,o xide (Magnesium Complex) 300 mg magnesium tablet Take 300 mg by mouth at bedtime. - Oral Active SPIRONOLACTONE ORAL Take by mouth Active amLODIPine (NORVASC) 5 mg tablet Take 1 tablet (5 mg total) by mouth 1 (one) time each day. 90 tablet 1 5 Active Premarin 0.9 mg tablet Take 1 tablet (0.9 mg total) by mouth 1 (one) time each day. 90 tablet 5 Active estradioL (ESTRACE) 0.01 % (0.1 mg/gram) vaginal cream 1g PV twice weekly 42.5 g 4 5 Active omeprazole (PriLOSEC) [address] capsule TAKE 1 CAPSULE BY MOUTH ONCE A DAY 30 capsule 5 Active omeprazole (PriLOSEC) [address] capsule Take 1 capsule (40 mg total) by mouth 1 (one) time each day. 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 12/20 stable Cervicalgia 09/05/2019 Overview (08/07/2024): Botox injections; Dr Burns Hypertension 09/05/2019 Contact dermatitis 10/07/2018 Cystocele with rectocele 03/01/2018 Diastasis recti 02/28/2018 Facial rhytids 02/28/2018 Neuropathy 03/13/2016 Lyme disease 09/18/2012 Encounters Date Type Department Care Team Description 02/05/2025 9:15 AM EDT Office Visit Orthopedic Surgery [facility] [address] [facility] [address] [place] [phone] Jessica Rossi PA Arthritis of carpometacarpal (CMC) joint of right thumb (Primary Dx) 02/05/2025 Telephone Orthopedic Surgery [facility] [address] [facility] [address] [place] [phone] Jessica Rossi PA from Last 3 Months Immunizations Name Administration [...] x2 (plate, subsequently removed) BREAST SURGERY PROCEDURE: [place] UNLISTED PROCEDURE BREAST; COMMENT: implants OTHER SURGICAL [...] Sign Reading Time Taken Comments Blood Pressure 140/88 12/22/2024 10:14 AM EDT Pulse 100 12/22/2024 10:14 AM EDT Temperature 36.7 C (98 F) 12/22/2024 10:14 AM EDT Respiratory Rate 18 11/01/2024 10:48 AM EDT Oxygen Saturation 94% 12/22/2024 10:14 AM EDT Inhaled Oxygen Concentration - - Weight 69.4 kg (153 lb) 02/05/2025 9:17 AM EDT Height 175.3 cm (5' 9.02 ) 02/05/2025 9:17 AM ED T Body Mass Index 22.58 02/05/2025 9:17 AM EDT Plan of Treatment Upcoming Encounters Date Type Department Care Team (Late st Contact Info) Description 04/24/2025 11:00 AM EDT Office Visit Internal Medicine - [facility] [address] [place] [phone] Marquez Partida PA [address] [place] [address] 07/03/2025 1:00 PM EST Appointment Radiology Department [address] [phone] Health Maintenance Due Date Last Done Comments Pneumococcal Vaccine: 50+ Years (1 of 2 - PCV) 1977 RSV Immunization Adult Patients (1 - Risk 60-74 years 1-dose series) 2018 Social Influencers of Health Screening 07/11/2022 Falls Risk Assessment 10/25/2023 Depression Screening 08/02/2024 Hypertension/CHF/CAD Annual BMP Blood Test 03/02/2025 03/02/2024, 01/28/2023 COVID-19 Vaccine ( season) 2025 05/12/2022, 01/02/2022, 06/02/2021, Additional history exists Influenza Vaccine (#1) 2025 , 07/21/2021, 06/02/2021, Additional history exists Colorectal Cancer Screening: Colonoscopy 06/13/2026 06/13/2021 Breast Cancer Screening 01/01/2027 01/02/20, 08/03/2024, 07/20/2024, Additional history exists Cholesterol Screening (Lipid Panel) [...] Procedure Name Priority Date/Time Associated Diagnosis Comments NH ARTHROCENTESIS/ASPI RATION/INJECTION SMALL JOINT/BURSA WO U/S GUIDANCE Routine 02/05/2025 9:15 AM EDT Arthritis of carpometacarpal (CMC) joint of right thumb MG MAMMO DIGITAL DIAGNOSTIC W FAM LEFT Routine 01/01/2025 1:20 PM EDT Abnormal mammogram DXA BONE DENSITY STUDY 1+ SITS AXIAL SKEL Routine 12/02/2023 1:50 PM EDT Eosinophilic esophagitis ANNUAL BMP BLOOD TEST Routine 01/28/2023 LIPID PANEL Routine 06/11/2022 COLONOSCOPY Routine 06/13/2021 HEPATITIS C SCREENING Routine 02/04/2021 from Last 3 Months or Most Recently Relevant to Health Maintenance Results * NH ARTHROCENTESIS/ASPIRATION/INJECTION SMALL JOINT/BURSA WO U/S GUIDANCE (02/05/2025 9:15 AM EDT) Jessica Banerjee PA - 02/05/2025 9:15 AM EDT ROSEANN Johnston 02/05/2025 12:19 PM Hand / UE Inj/Asp: R thumb CMC for osteoarthritis Indications: pain Details: 25 G needle, dorsal approach Medications: 40 mg triamcinolone acetonide 40 mg/mL; 0.5 mL lidocaine 1 % Informed Consent: Laterality: Right Relevant images/test results available and reviewed: yes Health status cleared: Yes Procedure/treatment, purpose, treatment alternatives, risks/potential complications and benefits explained: yes Risk/complications/benefits details: Risks of infection, thinning of the skin, skin discoloration discussed. Discussed the possibility of increased pain, mild redness and swelling at injection site. Discussed uncommon side effect of facial flushing after cortisone injection. Patient may use ice, Tylenol or ibuprofen if they can take it. Benefits pain management Patient questions answered: yes Patient agrees, verbalizes understanding, and wants to proceed: yes Consent given by: Patient Informed consent discussion completed by Physician/ETHAN with patient: Verbal Pre-procedure timeout performed: yes us Jessica [facility] IN CLINIC/BEDSIDE ORDERABLES Final Result * MG Mammo Digital Diagnostic w Fam Left (01/01/2025 1:20 PM EDT) Anatomical Region Laterality Modality Breast Left Mammography 01/01/2025 1:21 PM EDT Impressions 01/01/2025 1:31 PM EDT Benign. Bilateral mammogram to resume annual screening in July 2025 is suggested. Findings and recommendations were conveyed to the patient. BI-RADS CATEGORY: 2 - BENIGN RECOMMENDATION: Return to annual mammography. Return to annual mammography. Return to annual mammography. Return to annual mammography. Mammo Location: [facility], [address] [place] [address], [address], . -------- FINAL REPORT -------- Dictated By: Jacqueline Rodriguez Dictated Date: 01/01/2025 13:21 ET Assigned Physician: Jacqueline Rodriguez Reviewed and Electronically Signed By: Jacqueline Rodriguez Signed Date: 01/01/2025 13:31 ET Workstation ID: [id number] Transcribed By: Self Edit Transcribed Date: 01/01/2025 13:21 ET Narrative 01/01/2025 1:31 PM EDT CLINICAL: 64 years old, Female, six-month follow-up focal asymmetry outer left breast. COMPARISON: Diagnostic left breast mammogram and left breast ultrasound 08/03/2024. Mammograms dating back to 04/05/2015. FINDINGS: MAMMOGRAPHY TECHNIQUE: MLO and CC views of the left breast were obtained digitally with 3-D mammogram (digital breast tomosynthesis). Computer-aided detection was utilized in evaluation of this exam (CAD). There is no evidence of suspicious mass or architectural distortion. No worrisome calcifications are evident. Focal asymmetry in the outer left breast is not significantly changed most recent study. This focal asymmetry has a variable appearance on previous studies. BREAST DENSITY: B - There are scattered areas of fibroglandular density. Procedure Note Jacqueline Rodriguez MD - 01/01/2025 CLINICAL: 64 years old, Female, six-month follow-up focal asymmetry outerleft breast. COMPARISON: Diagnostic left breast mammogram and left breast [id number]/02/2025. Mammograms dating back to 04/05/2015. FINDINGS: MAMMOGRAPHY TECHNIQUE: MLO and CC views of the left breast were obtained digitallywith 3-D mammogram (digital breast tomosynthesis). Computer-aideddetection was utilized in evaluation of this exam (CAD). There is no evidence of suspicious mass or architectural distortion. Noworrisome calcifications are evident. Focal asymmetry in the outer leftbreast is not significantly changed most recent study. This focalasymmetry has a variable appearance on previous studies. BREAST DENSITY: B - There are scattered areas of fibroglandular density. IMPRESSION: Benign. Bilateral mammogram to resume annual screening in July 2025is suggested. Findings and recommendations were conveyed to the patient. BI-RADS CATEGORY: 2 - BENIGN RECOMMENDATION: Return to annual mammography. Return to annual mammography. Return toannual mammography. Return to annual mammography. Mammo Location: [facility], [address] [place] [address], [id number], . -------- FINAL REPORT -------- Dictated By: Jacqueline Rodriguez Dictated Date: 01/01/2025 13:21 ET Assigned Physician: Jacqueline Rodriguez Reviewed and Electronically Signed By: Jacqueline Rodriguez Signed Date: 01/01/2025 13:31 ET Workstation ID: [id number] Transcribed By: Self Edit Transcribed Date: 01/01/2025 13:21 ET us Dar Starks MD IMG BI PROCEDURES Final Result * DXA BONE DENSITY STUDY 1+ SITS AXIAL SKEL (12/02/2023 1:50 PM EDT) Anatomical Region Laterality Modality Bone Densitometr y 10/01/2023 3:13 PM EST Narrative 12/02/2023 6:04 PM EDT BONE DENSITY Lumbar Spine T-score is +0.5 [...] (World Health Organization Fracture Risk Assessment) [facility] Department of Internal Medicine recommends using National [...] (World Health Organization Fracture Risk Assessment) [facility] Department of Internal Medicine recommendsusing National Osteoporosis [...] over-estimation of fracture risk by FRAX. Result [facility] Marcos Pérez MD IMG DXA PROCEDURES Final Re sult * Annual BMP Blood Test (01/28/2023) [facility] Annual BMP Blood Test Abstracted Result [facility] Provider HEALTH MAINTENANCE Final Result * (ABNORMAL) Lipid panel (06/11/2022) [facility] LDL/HDL Ratio 4 0 - 4 Triglycerides 239(A) 0 - 150 mg/dL Cholesterol 226(A) 0 - 200 mg/dL HDL 58 >=40 mg/dL LDL Cholesterol 121(A) 0 - 100 mg/dL Blood Venous blood specimen / Unknown Result [facility] Provider LAB BLOOD ORDERABLES Kelly l Result * Colonoscopy (06/13/2021) [facility] Colonoscopy No Interpretation , Abstracted Anatomical Region Laterality Modality Other Result [facility] Provider HEALTH MAINTENANCE Final Result * Hepatitis C Screening (02/04/2021) [facility] Hepatitis C Screening Abstracted Result [facility] Provider HEALTH MAINTENANCE Final Result from Last 3 Months or Most Recently Relevant to Health Maintenance Insurance [facility] Care Teams Skidder Loader Relationship Specialty Start Date End Date Dar Starks MD [address] [place] [address] PCP - General Internal Medicine 10/20/21
--- OUTSIDE RECORDS SUMMARY | 2025-04-09 14:15 | XMS_ITS | Encounter Summary ---
Author Organization [facility] Address [address] [place] [address] Care Team Providers Care Healthcare Network Consultant Name Role Phone Anum Starks Primary Care Provider [phone] Encounter Details Date Type Department Care Team (Late st Contact Info) Description 03/07/2025 myChart Message [facility] 4th Floor [address] [facility], [place] [address] Supervisor Particleboard: Yunior Baker NP [address] [place] [address] Elevated blood pressure Social History Tobacco Use Types Packs/Day Years [...] PM EST documented as of this encounter Plan of Treatment Not on file documented as of this encounter Visit Diagnoses Not on filedocumented in this encounter Care Teams Healthcare Network Consultant Relationship Specialty Start Date End Date Anum Starks [address] [place] [phone] PCP - General Internal Medicine 11/12/23 documented as of this encounter
--- OUTSIDE RECORDS SUMMARY | 2025-04-09 14:15 | XMS_ITS ---
Author Name [facility] Organization Unknown History of Medication Use Medication Directions Dispensed Refills Start Date End Date Stat us ipratropium (ATROVENT) 0.03 % nasal spray 2 sprays into each nostril 2 (two) times a day. 09/29/2024 active predniSONE (DELTASONE) 20 MG tablet 2 tabs with breakfast for 2 days, 1 tab with breakfast for 2 days. With food. 09/13/2024 active amLODIPine (NORVASC) 5 MG tablet Take 5 mg by mouth daily. 09/06/2024 active Premarin 0.9 MG tablet Take 0.9 mg by mouth. 09/01/2024 active OMEprazole (PriLOSEC) 40 MG capsule Take 40 mg by mouth. 08/04/2024 acti ve minoxidil (LONITEN) 2.5 MG tablet 45 tablet, 0 Refill(s), 0 Refills, 07/24/24 1:01:00 PM EST, Partial fill upon patient request if the prescription is for a schedule II opioid drug. 06/08/2024 active budesonide (PULMICORT) 1 mg/2 mL nebulizer solution 1 mg. 10/17/2023 active diphenhydrAMINE-acet aminophen (Tylenol PM Extra Strength) 25-500 MG Tab 1 tablet. active MANGANESE GLUCONATE PO Magnesium 250 MG Oral Tablet TAKE 1 TABLET DAILY. Quantity: 30; Refills: 6 Active active Allergies Allergen Reaction Severity Comment Documented Date Source Statu s ASPIRIN GI INTOLERANCE/NAUSEA/ VOMITING stomach upset only 02/28/2018 [facility] active Problems Problem Status Onset Date Problem Type Date of Resolution Source Chronic rhinitis active EncounterDiagnosisAct CCT Arthralgia of left temporomandibular joint active EncounterDiagnosisAct CCT Encounters Encounter Type Encounter Reason Primary Diagnosis Location Date Ambulatory Earache Earache [facility] 09/29/2024 Ambulatory Earache Earache [facility] 09/13/2024 Care Team Organization Name Specialty Phone Email Start Date End Da te [facility] 10/11/2024 11/04/2024 [employer] Dar Starks Primary Care 09/14/2024 [employer] KIRA WEAVER Primary Care 08/29/2024
--- OUTSIDE RECORDS SUMMARY | 2025-04-09 14:15 | XMS_ITS | Clinical Summary ---
Author Organization [facility] Address [address] [place] [address] Care Team Providers Care Occupational Therapy Asst Name Role Phone Anum Starks Primary Care Provider [phone] Allergies Active Allergy Reactions Criticality Noted Date Comments Aspirin Vomiting 03/02/2024 stomach upset only Shellfish Derived Swelling High Medications delmer [id number] op-man-bor 250-40-125 mg-mg-unit tablet Magnesium 250 MG Oral Tablet TAKE 1 TABLET DAILY. Quantity: 30; Refills: 6 Active Active amitriptyline (ELAVIL) 25 mg tablet 4 Active minoxidiL (LONITEN) 2.5 mg tabletIndicatio ns:Androgenetic alopecia Take one tablet once daily 60 tablet 3 5 Active spironolactone (ALDACTONE) 50 mg tabletIndicatio ns:Androgenetic alopecia Take 2 tablet by mouth daily at bedtime. 180 tablet 3 5 Active tretinoin (RETIN-A) 0.05% creamIndication s:Rhytides Apply a pea sized amount to face, starting 2-3x/week and increase to nightly as tolerated. 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 Throat pain 02/28/2013 Tick bites 01/04/2013 Acute pharyngitis 01/04/2013 Lyme disease 09/18/2012 Hypertension 09/18/2012 Encounters Date Type Department Care Team Description 03/08/2025 Telephone [facility] 4th Floor [address] [place] [address] Medical Chief Technician: Yunior Baker NP Non-Covered/Excluded - PAC Retail Pharm Denial 03/07/2025 myChart Message [facility] 4th Floor [address] [place] [address] Medical Chief Technician: Yunior Baker NP Elevated blood pressure 03/07/2025 Telephone [facility] [address] [phone] Medical Chief Technician: Yunior Baker NP 03/06/2025 10:15 AM EDT Office Visit [facility] [address] [place] [phone] Medical Chief Technician: Yunior Baker NP Rhytides (Primary Dx); Androgenetic alopecia; Tinea from Last 3 Months Immunizations Immunization Administration Dates Next Due INFLUENZA, [...] Sign Reading Time Taken Comments Blood Pressure 150/93 03/06/2025 10:37 AM EDT retake in left arm 148/96 Hr.80 Pulse 81 03/06/2025 10:37 AM EDT Temperature 36.1 C (97 F) 01/04/2014 4:06 PM EDT Respiratory Rate - - Oxygen Saturation - - Inhaled Oxygen Concentration - - Weight 68 kg (150 lb) 04/03/2015 2:29 PM EDT Height 177.8 cm (5' 10 ) 05/02/2014 9:2 3 AM EDT Body Mass Index 21.52 05/02/2014 9:23 AM EDT Plan of Treatment Health Maintenance Due Date Last Done Comments Cologuard 1960 Colon Cancer Screening 1960 Colonoscopy 1960 FOBT / Fit Test 1960 Hepatitis C Screening 1960 Sigmoidoscopy 1960 Pneumococcal Vaccine: 50+ Years (1 of 2 - PCV) 1977 Osteoporosis Screening 2008 RSV Vaccine (60+ years old and patients) (1 - Risk 60-74 years 1-dose series) 2018 Alcohol/Substance Use Screening 08/02/2024 Depression Screening and Follow-Up 08/02/2024 Health Care Proxy Review 08/02/2024 Social Drivers of Health Annual Screening 08/02/2024 Basic Metabolic Panel 03/02/2025 03/02/2024 COVID-19 Vaccine ( season) 2025 05/12/2022, 01/02/2022, 06/02/2021, Additional history exists Influenza Vaccine (#1) 2025 , 07/21/2021, 06/02/2021, Additional history exists Mammogram 01/01/2027 01/01/2025, 09/2024, 08/03/2024, Additional history exists DTaP,Tdap,and Td Vaccines (2 - Td or Tdap) 08/28/2031 08/28/2021 Zoster Vaccines Completed 01/27/2021, 09/17/2020 Hepatitis B Vaccines Aged Out No long er eligible based on patient's age to complete this topic Procedures * Due to [place] state law, this organization might not be sharing negative HIV tests. Procedure Name Priority Date/Time Associated Diagnosis Comments BASIC METABOLIC PANEL Routine 03/02/2024 11:55 AM EDT High risk medication use from Last 3 Months or Most Recently Relevant to Health Maintenance Results * Due to [place] state law, this organization might not be sharing negative HIV tests. * Basic Metabolic Panel (03/02/2024 11:55 AM EDT) NA 138 135 - 145 mmol/L 03/02/2024 1:27 PM EDT [facility] K 4.3 3.5 - 5.3 mmol/L 03/02/2024 1:27 PM EDT [facility] Cl 104 98 - 107 mmol/L 03/02/2024 1:27 PM EDT [facility] CO2 24 24 - 32 mmol/L 03/02/2024 1:27 PM EDT [facility] BUN 14 7 - 23 mg/dL 03/02/2024 1:27 PM EDT [facility] Creatinine 0.86 0.50 - 1.20 mg/dL 03/02/2024 1:27 PM EDT [facility] Glucose 96 65 - 99 mg/dL 03/02/2024 1:27 PM EDT [facility] Calcium 9.7 8.6 - 10.5 mg/dL 03/02/2024 1:27 PM EDT [facility] Anion Gap 10 5 - 15 [facility] MANUAL 03/02/2024 1:27 PM EDT [facility] eGFR 75 >=60 mL/min/1. 73m2 [facility] MANUAL 03/02/2024 1:27 PM EDT [facility] Comment:The estimated glomer ular [...] 03/02/2024 11:55 AM EDT us Yunior Rutledge SECTION LEADER SCREEN PRINTING LAB BLOOD ORDERABLES Final R esult [facility] [address] [place] [address], [place] from Last 3 Months or Most Recently Relevant to Health Maintenance Insurance [employer] Care Teams Occupational Therapy Asst Relationship Specialty Start Date End Date Anum Starks [address] [facility] [facility] [place] [address] PCP - General Internal Medicine 11/12/23
== END 2025-04-09 12:02 | disposition home or self-care (01) ==
LOC: HO.HSMS 11:34
PROVIDERS: PCP Internal Medicine; Visit Provider Psychiatry & Neurology Neurology
DX: G43.E09 Chronic migraine with aura, not intractable, without status migrainosus (principal); M47.812 Spondylosis without myelopathy or radiculopathy, cervical region; H53.9 Unspecified visual disturbance
CPT/HCPCS: 99214

== ENCOUNTER 2025-05-15 16:49 | Outpatient (REF) | payer BC, SELFPAY ==
--- NOTE | ~2025-05-15 | MR_ITS ---
EXAMINATION: MR BRAIN WITHOUT CONTRAST CLINICAL INFORMATION: H53.9. Unspecified visual disturbance. COMPARISON: None available. TECHNIQUE: MRI of the brain was obtained using routine sequences without contrast. FINDINGS: No restricted diffusion. No acute intracranial hemorrhage, mass effect, midline shift, hydrocephalus or herniation. Finch-white matter differentiation is normal. Punctate hyperintense T2 FLAIR signal, superior right frontal gyrus. Posterior cranial fossa contents demonstrated no gross signal abnormality. Flow-void signal within the main cerebral vessels is normal. Sellar/suprasellar region is normal. Craniocervical junction demonstrates normal position of the cerebellar tonsils. MR/MR head/brain wo con IMPRESSION: No acute brain abnormality. Probable old lacunar infarct, right superior frontal gyrus. Electronically signed by: Justyn Hedrick MD 05/16/2025 07:01 AM EDT
--- OUTSIDE RECORDS SUMMARY | 2025-05-15 14:30 | XMS_ITS | Encounter Summary ---
Author Organization [facility] Address [address] [place] [address] Care Team Providers Care Upholstery Sewer Name Role Phone Dar Starks MD Primary Care Provider [phone] Reason for Referral * Consultation (Routine) - Authorized Specialty Diagnoses / Procedures Referred By Ho shoemaker Referred To Contact Cardiology Diagnoses EDWARDS (dyspnea on exertion) Marquez Partida PA [address] [place] [address] Phone: tel: fax: [facility] [address] [facility] [address] [place] [address] Phone: tel: fax: Referral ID Status Reason Start Date Expiration Date Visits Requested Visits Authorized [id number] Authorized Specialty Services Required 05/15/2026 1 1 Reason for Visit * Reason Comments Medication Visit Encounter Details Date Type Department Care Team ([facility] st Contact Info) Description 05/15/2025 2:30 PM EDT Office Visit Internal Medicine - [facility] [address] [place] [address] Marquez Partida PA [address] [place] [address] Primary hypertension (Primary Dx); Other migraine with status migrainosus, not intractable; EDWARDS (dyspnea on exertion); Immunization due; Rash; Gastroesophageal reflux disease, unspecified whether esophagitis present Social History Tobacco Use Types Packs/Day Years [...] Sign Reading Time Taken Comments Blood Pressure 118/82 05/15/2025 2:51 PM EDT Pulse - - Temperature - - Respiratory Rate - - Oxygen Saturation - - Inhaled Oxygen Concentration - - Weight - - Height - - Body Mass Index - - documented in this encounter Ordered Prescriptions Prescription Sig Dispense Quantity Refills Last Filled Start Date End Date pantoprazole (PROTONIX) 40 mg EC tablet Take 1 tablet (40 mg total) by mouth 1 (one) time each day. Do not crush, chew, or split. 30 each 1 05/15/2025 5 clotrimazole-betam ethasone (LOTRISONE) 1-0.05 % cream Apply topically 2 (two) times a day. 15 g 05/15/2025 5 predniSONE (DELTASONE) 5 mg tablet Take 1 tablet (5 mg total) by mouth 1 (one) time each day for 7 days. 7 each 05/15/2025 5 documented in this encounter Progress Notes * ROSEANN Asher - 05/15/2025 2:30 PM EDT CHIEF COMPLAINT: Medication Visit IDENTIFIER: Mirta Kebede is a 64 y.o. old female. HPI: Mirta Kebede presents secondary to Follow-up on chronic conditions. History of cervicalgia, asthma, HTN, ascending aorta dilatation, cystocele/rectocele, OA, CITLALI, and insomnia. Patient has not been seen in the office since October 2023. For the last year she has had rash on left lower extremity, bottom of the foot. She has tried numerous OTC remedies. She tried ketoconazole cream, hydrocortisone cream, fungal sprays. None of which has helped. More recently she noticed red streak coming up the left lower extremity. She also had something similar on her left upper extremity. This is very pruritic. She denies any new skin care products, detergents. No sick contacts. [facility] [place]. She will be seeing derm shortly. HTN: Amlodipine 5 mg daily. BP is controlled today. She reports edwards. Specifically when walking up stairs. No chest pain, peripheral edema. Admits to palpitations. GERD: Omeprazole 40 mg daily. Still having breakthrough reflux. Using tums as well but this still does not help. HM: Flu vaccine, pneumonia vaccine. Up-to-date with colonoscopy, mammogram. ROS: See HPI for pertinent positives and detailed description. 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 V24) 06/10/2022 Insomnia 08/30/2021 Hair loss 01/27/2021 Lung nodules 01/16/2021 Anxiety 11/08/2020 Asthma 09/09/2020 Thoracic aortic ectasia ([facility] V24) 12/21/2019 Cervicalgia 09/05/2019 Hypertension 09/05/2019 Contact dermatitis 10/07/2018 Cystocele with rectocele 03/01/2018 Diastasis recti 02/28/2018 Facial rhytids 02/28/2018 Neuropathy 03/13/2016 Lyme disease 09/18/2012 Surgical History[1] SOCIAL HISTORY: Social History Tobacco Use Smoking status: Never Smokeless tobacco: Never Substance Use Topics Alcohol use: Yes FAMILY HISTORY: Family History[2] Family Status Relation Name Status Mother (Not Specified) Father (Not Specified) Sister (Not Specified) Other m. & p.aunts& p.aunts Alive Neg Hx (Not Specified) No partnership data on file MEDICATIONS DISCONTINUED/REORDERED: Medications Discontinued During This Encounter Medication Reason omeprazole (PriLOSEC) [address] capsule ACTIVE MEDICATIONS: Medications Taking[3] ALLERGIES: Current Allergies[4] PHYSICAL EXAM: Visit Vitals BP 118/82 OB Status Hysterectomy Smoking Status Never General: Alert, calm, no acute distress. HEENT: Normocephalic/atraumatic, EOMI. Skin: Flaky macerated skin on plantar surface of left foot. There is a streak of erythema coming upmedial ankle left lower extremity up the calf. There is a similar finding on left upper extremity. There is no rashes and interdigital folds. Otherwise skin warm, dry. Cardiovascular: Regular rate and rhythm. No murmurs, rubs, or gallops Lungs: CTA, no crackles, wheezes or rhonchi. Neuro: COA x3. Psych: mood and affect appropriate for situation IMAGING: NA IMPRESSION: 1. Primary hypertension 2. Other migraine with status migrainosus, not intractable 3. EDWARDS (dyspnea on exertion) 4. Immunization due 5. Rash 6. Gastroesophageal reflux disease, unspecified whether esophagitis present PLAN: HTN: This is controlled. Continue amlodipine 5 mg daily. Dyspnea on exertion: I offered EKG, chest x-ray, lab workup. Patient deferred all of this today. She wants to see cardiology. I have put in referral for further evaluation. GERD: Still having reflux even with omeprazole 40 mg every morning. Will try Protonix 40 mg daily and reassess in 2 weeks. If no improvement will refer to GI for consideration of EGD. Rash: This is streaking from distal to proximal upper and lower extremities on left side. I was considering scabies, bedbugs but there are no other sick contacts at this seems less likely. No new skin care products or detergents to suggest contact dermatitis. Etiology unknown. I would like to try prednisone and Lotrisone cream. She can try Lotrisone after completing prednisone prescription. If noimprovement follow-up with dermatology. She also wants to get tested for Lyme. We have discussed the above medication(s) at length. I have explained the indications as well as common side effects and risks. The patient understands and accepts these risks and wishes to proceed with the pharmacological treatment. All of the patient's questions were answered at this time. Pt voices understanding and is in agreement with the above plan. Symptoms and/or concerns that should warrant emergency evaluation/treatment have been discussed. Follow up evaluation will be based upon the plan as stated. If any questions should arise in the interim/future please contact the officefor assistance. Medication and lab orders: Orders Placed This Encounter Procedures Influenza trivalent, 0.5mL (Fluad) 65yo and older Borrelia burgdorferi antibody Lipid panel with reflex to direct LDL Comprehensive metabolic panel Ambulatory referral to Cardiology Other orders: INFLUENZA TRIVALENT, 0.5ML (FLUAD) 65YO AND OLDER AMB REFERRAL TO CARDIOLOGY I have maintained a long-term, longitudinal relationship with this patient leading to the extensivework up, and management associated with the medical care of this patient. ROSEANN Asher on 05/15/2025 at 3:52 PM EDT [1] Past Surgical History: Procedure Laterality Date ANKLE SURGERY Right PROCEDURE: HISTORICAL ANKLE SURGERY; COMMENT: x2 (plate, subsequently removed) BREAST SURGERY PROCEDURE: WI UNLISTED PROCEDURE BREAST; COMMENT: implants HERNIA REPAIR Right PROCEDURE: REPAIR INGUINAL HERNIA HYSTERECTOMY 1989 PROCEDURE: HISTORICAL HYSTERECTOMY; COMMENT: w/ BSO OTHER SURGICAL HISTORY PROCEDURE: ---- OTHER ----; COMMENT: tummy tuck OTHER SURGICAL HISTORY PROCEDURE: ---- OTHER ----; COMMENT: plastic facial surgery OTHER SURGICAL HISTORY PROCEDURE: ---- OTHER ----; COMMENT: bladder sling OTHER SURGICAL HISTORY PROCEDURE: IMPLANT BREAST SILICONE/EQ; COMMENT: 2009 [2] Family History Problem Relation Name Age of Onset Hypertension Mother Heart attack Father Coronary artery disease Father 37 smoker Hyperlipidemia Father Other (Other: scd) Sister 44 autopsy showed cardiomegaly Breast cancer Other m. & p.aunts& p.aunts Diabetes Neg Hx Other cancer Neg Hx [3] Outpatient Medications Marked as Taking for the 05/15/25 encounter (Office Visit) with ROSEANN Asher Medication Sig Dispense Refill albuterol HFA (PROAIR HFA ; PROVENTIL HFA ; VENTOLIN HFA) 90 mcg/actuation inhaler Inhale 2 puffs by mouth. amitriptyline (ELAVIL) 25 mg tablet amLODIPine (NORVASC) 5 mg tablet Take 1 tablet (5 mg total) by mouth 1 (one) time each day. 90 tablet 1 budesonide (PULMICORT) 1 mg/2 mL nebulizer solution estradioL (ESTRACE) 0.01 % (0.1 mg/gram) vaginal cream 1g PV twice weekly 42.5 g 4 magnesium carb,citrate,oxide (Magnesium Complex) 300 mg magnesium tablet Take 300 mg by mouth at bedtime. - Oral minoxidiL (LONITEN) 2.5 mg tablet Take 1 tablet (2.5 mg total) by mouth 1 (one) time each day. Premarin 0.9 mg tablet Take 1 tablet (0.9 mg total) by mouth 1 (one) time each day. 90 tablet 0 SPIRONOLACTONE ORAL 50 mg 2 (two) times a day. Take by mouth [DISCONTINUED] omeprazole (PriLOSEC) [address] capsule TAKE 1 CAPSULE BY MOUTH ONCE A DAY 30 capsule0 [4] Allergies Allergen Reactions Shellfish Containing Products Swelling Other Reaction(s): eyes swell shut Adhesive Dermabond caused rash Aspirin Nausea And Vomiting stomach upset only documented in this encounter Plan of Treatment Upcoming Encounters Date Type Department Care Team (Late st Contact Info) Description 07/03/2025 2:20 PM EST Appointment Radiology Department [address] [address] Scheduled Orders Name Type Priority Associated Diagnoses Orde r Schedule Borrelia burgdorferi antibody Lab Routine Other migraine with status migrainosus, not intractable 1 Occurrences starting 05/15/2025 until 05/15/2026 Lipid panel with reflex to direct LDL Lab Routine Primary hypertension 1 Occurrences starting 05/15/2025 until 05/15/2026 Comprehensive metabolic panel Lab Routine Primary hypertension 1 Occurrences starting 05/15/2025 until 05/15/2026 Scheduled Referrals Name Type Priority Associated Diagnoses Order Schedule Ambulatory referral to Cardiology Outpatient Referral Routine EDWARDS (dyspnea on exertion) 1 Occurrences starting 05/15/2025 until 05/15/2026 documented as of this encounter Visit Diagnoses Diagnosis Primary hypertension- Primary Unspecified essential hypertension Other migraine with status migrainosus, not intractable EDWARDS (dyspnea on exertion) Other dyspnea and respiratory abnormality Immunization due Rash Rash and other nonspecific skin eruption Gastroesophageal reflux disease, unspecified whether esophagitis present documented in this encounter Discontinued Medications Medication Sig Discontinue Reason Start Date End Da te omeprazole (PriLOSEC) [address] capsule TAKE 1 CAPSULE BY MOUTH ONCE A DAY 04/04/2025 05/15/2025 documented as of this encounter Historical Medications * This list may reflect changes made after this encounter. minoxidiL (LONITEN) 2.5 mg tablet Take 1 tablet (2.5 mg total) by mouth 1 (one) time each day. 06/08/2024 added in this encounter Orders Immunization/Injection Count Last Ordered Date First Ordered Date INFLUENZA TRIVALENT, 0.5ML ( FLUAD) 65YO AND OLDER 1 05/15/2025 documented in this encounter Care Teams Upholstery Sewer Relationship Specialty Start Date End Date Dar Starks MD [address] [place] [address] PCP - General Internal Medicine 10/20/21 documented as of this encounter
--- OUTSIDE RECORDS SUMMARY | 2025-05-15 18:45 | XMS_ITS | Clinical Summary ---
Author Organization [facility] Address [address] [address] Phone Care Team Providers Care Cigarette Maker Name Role Phone Patricia Vasquez MD Primary Care Provider [phone] Allergies No known active allergies Medications pregabalin [...] 01/27/2021 OSTEOPOROSIS SCREENING INITI AL (ONE-TIME) 10/25/2023 INFLUENZA VACCINE (#1) 2025 COVID-19 VACCINE (4 - 2024-2 6 season) 2025 05/08/2021, 09/27/2020, 09/06/2020 RSV VACCINE (1 - 1-dose 75+ series) [...] topic Medical Devices Not on file Insurance [employer]ence [facility] [employer]ence [employer] Com[employer]ence [employer] [employer] [facility] [place] [place] [address] [facility] Care Teams Cigarette Maker Relationship Specialty Start Date End Date Patricia Vasquez MD [address] [place] [address] PCP - General Internal Medicine 09/10/15 Additional Source Comments The information contained in this document represents components of the legal health record. It is not the complete legal health record.[facility]
--- OUTSIDE RECORDS SUMMARY | 2025-05-15 18:45 | XMS_ITS | Clinical Summary ---
Author Organization [facility] Address [address] [place] [address] Care Team Providers Care Silo Tender Name Role Phone Dar Starks MD Primary [...] (Females,Ages 65 and older) 10/25/2023 Influenza Vaccine 03/02/2025 06/02/2021, 05/31/2013 COVID-19 Vaccine (2 - 2024-2 6 season) 2025 06/02/2021 RSV Vaccine 60 years and older and Patients (1 - 1-dose 75+ series) 2033 Hepatitis B Vaccines Aged Out No long er eligible based on patient's age to complete this topic Insurance [facility] [employer] Care Teams Silo Tender Relationship Specialty Start Date End Date Dar Starks MD PCP - General Internal Medicine 09/13/24
--- OUTSIDE RECORDS SUMMARY | 2025-05-15 18:45 | XMS_ITS | Encounter Summary ---
Author Organization [facility] Address [address] [facility] [address] [place] [address] Phone Care Team Providers Care Beam Press Operator Name Role Phone Patricia Vasquez MD Primary Care Provider [phone] Encounter Details Date Type Department Care Team (Late st Contact Info) Description 08/27/2022 [facility] [address] [place] [address], [address] [place] [address] Dwain Jaramillo MD [address] [place] [address] [address] [place] [address] [email or web address] Social History Tobacco Use Types Packs/Day [...] on filedocumented in this encounter Care Teams Beam Press Operator Relationship Specialty Start Date End Date Patricia Vasquez MD [address] [place] [address] PCP - General Internal Medicine 09/10/15 documented as of this encounter Additional Source Comments The information contained in this document represents components of the legal health record. It is not the complete legal health record.[facility]
--- OUTSIDE RECORDS SUMMARY | 2025-05-15 18:45 | XMS_ITS | Encounter Summary ---
Author Organization [facility] Address [address] [facility] [address] [place] [address] Phone Care Team Providers Care Quality Assurance Engineer Name Role Phone Patricia Vasquez MD Primary Care Provider [phone] Encounter Details Date Type Department Care Team (Late st Contact Info) Description 07/13/2022 [facility]phone [facility] [address] [place] [address], [address] [place] [address] Dwain Jaramillo MD [address] [place] [address] [address] [place] [address] [email or web address] Social History Tobacco Use Types Packs/Day [...] on filedocumented in this encounter Care Teams Quality Assurance Engineer Relationship Specialty Start Date End Date Patricia Vasquez MD [address] [place] [address] PCP - General Internal Medicine 09/10/15 documented as of this encounter Additional Source Comments The information contained in this document represents components of the legal health record. It is not the complete legal health record.[facility]
--- OUTSIDE RECORDS SUMMARY | 2025-05-15 18:45 | XMS_ITS | Clinical Summary ---
Author Organization [facility] [address] [place] [address] [place] [phone] Phone Care Team Providers Care Fruit Harvest Worker Name Role Phone Dar Starks MD Primary Care Provider [phone] Allergies Active Allergy Reactions Criticality Noted Date [...] at bedtime. - Oral Active SPIRONOLACTONE ORAL 50 mg 2 (two) times a day. Take by mouth Active amLODIPine (NORVASC) 5 [...] weekly 42.5 g 4 11/02/19 25 Active minoxidiL (LONITEN) 2.5 mg tablet Take 1 tablet (2.5 mg total) by mouth 1 (one) time each day. 06/08/20 24 Active predniSONE (DELTASONE) 5 mg tablet Take 1 tablet (5 mg total) by mouth 1 (one) time each day for 7 days. 7 each 05/15/20 25 025 Active clotrimazole-b etamethasone (LOTRISONE) 1-0.05 % cream Apply topically 2 (two) times a day. 15 g 05/15/20 25 025 Active pantoprazole (PROTONIX) 40 mg EC tablet Take 1 tablet (40 mg total) by mouth 1 (one) time each day. Do not crush, chew, or split. 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 12/20 stable Cervicalgia 09/05/2019 Overview (08/07/2024): Botox injections; Dr Burns Hypertension 09/05/2019 Contact dermatitis 10/07/2018 Cystocele with rectocele 03/01/2018 Diastasis recti 02/28/2018 Facial rhytids 02/28/2018 Neuropathy 03/13/2016 Lyme disease 09/18/2012 Encounters Date Type Department Care Team Description 05/15/2025 2:30 PM EDT Office Visit [facility] [address] [place] [phone] Marquez Partida PA Primary hypertension (Primary Dx); Other migraine with status migrainosus, not intractable; CAMPOS (dyspnea on exertion); Immunization due; Rash; Gastroesophageal reflux disease, unspecified whether esophagitis present 05/08/2025 Telephone [facility] [address] [place] [address] Katrina Neves MD from Last 3 Months Immunizations Immunization Administration Dates Next Due Influenza trivalent, 0.5mL (Fluad) 65yo and olde r 05/15/2025 Influenza, Unspecified 06/02/2021 [employer] SARS-CoV-2 COVID-19, mRNA, LNP-S, preservative free 06/02/2021 Tdap Tetanus diptheria acell ular pertussis (Boostrix; Adacel) 7yo and older 08/28/2021 Surgical History Surgery Date Site/Laterality Comments HERNIA REPAIR Right PROCEDURE: REPAIR INGUINAL HERNIA OTHER SURGICAL HISTORY PROCEDURE: ---- OTHER ----; COMMENT: patriciamy tuck OTHER SURGICAL HISTORY PROCEDURE: ---- OTHER ----; COMMENT: plastic facial surgery OTHER SURGICAL HISTORY PROCEDURE: ---- OTHER ----; COMMENT: bladder sling HYSTERECTOMY 1989 PROCEDURE: HISTORICAL HYSTERECTOMY; COMMENT: w/ BSO ANKLE SURGERY Right PROCEDURE: HISTORICAL ANKLE SURGERY; COMMENT: x2 (plate, subsequently removed) BREAST SURGERY PROCEDURE: WA UNLISTED PROCEDURE BREAST; COMMENT: implants OTHER SURGICAL [...] Pressure 118/82 05/15/2025 2:51 PM EDT Pulse 100 12/22/2024 10:14 AM EDT [...] 07/03/2025 2:20 PM EST Appointment Radiology Department [address] [phone] Health Maintenance Due Date Last Done Comments Pneumococcal Vaccine: 50+ Years (1 of 2 - PCV) 1977 RSV Immunization Adult Patients (1 - Risk 50-74 years 1-dose series) 2008 Social Influencers of Health Screening 07/11/2022 Falls Risk Assessment 10/25/2023 Depression Screening 08/02/2024 Hypertension/CHF/CAD Annual BMP Blood Test 03/02/2025 03/02/2024, 01/28/2023 COVID-19 Vaccine ( season) 2025 05/12/2022, 01/02/2022, 06/02/2021, Additional history exists Colorectal Cancer Screening: Colonoscopy 06/13/2026 06/13/2021 Breast Cancer Screening 01/01/2027 01/02/20, 08/03/2024, 07/20/2024, Additional history exists Cholesterol Screening (Lipid Panel) 06/11/2027 06/11/2022 DTaP,Tdap,and Td Vaccines (2 - Td or Tdap) 08/28/2031 08/28/2021 Osteoporosis Screening (Bone Density Screening) 12/01/2033 12/02/2023, 12/02/2023 Zoster Vaccines Completed 01/27/2021, 09/17/2020 Hepatitis C Screening Completed 02/04/2021 Influenza Vaccine Completed 05/15/2025, , 07/21/2021, Additional history exists HIB Vaccines Aged Out No longer eligi [...] Procedure Name Priority Date/Time Associated Diagnosis Comments MG MAMMO DIGITAL DIAGNOSTIC W FAM LEFT Routine 01/01/2025 1:20 PM EDT Abnormal mammogram DXA BONE DENSITY STUDY 1+ SITS AXIAL SKEL Routine 12/02/2023 1:50 PM EDT Eosinophilic esophagitis HM ANNUAL BMP BLOOD TEST Routine 01/28/2023 LIPID PANEL Routine 06/11/2022 COLONOSCOPY Routine 06/13/2021 HEPATITIS C SCREENING Routine 02/04/2021 from Last 3 Months or Most Recently Relevant to Health Maintenance Results * MG Mammo Digital Diagnostic w Fam [...] mammography. Return to annual mammography. Mammo Location: [facility], [address] [place] [address], [id number], . -------- FINAL REPORT -------- Dictated By: Jacqueline Rodriguez Dictated Date: 01/01/2025 13:21 ET Assigned Physician: Jacqueline Rodriguez Reviewed and Electronically Signed By: Jacqueline Rodriguez Signed Date: 01/01/2025 13:31 ET Workstation ID: [id number] Transcribed By: Self Edit Transcribed Date: 01/01/2025 [...] Diagnostic left breast mammogram and left breast luchvogayn83/02/2025. Mammograms dating back to 04/05/2015. FINDINGS: MAMMOGRAPHY [...] mammography. Return to annual mammography. Mammo Location: [facility], [address] [place] [address], [id number], . -------- FINAL REPORT -------- Dictated By: Jacqueline Rodriguez Dictated Date: 01/01/2025 13:21 ET Assigned Physician: Jacqueline Rodriguez Reviewed and Electronically Signed By: Jacqueline Rodriguez Signed Date: 01/01/2025 13:31 ET Workstation ID: [id number] Transcribed By: Self Edit Transcribed Date: 01/01/2025 [...] (World Health Organization Fracture Risk Assessment) [facility] Department of Internal Medicine recommends [...] (World Health Organization Fracture Risk Assessment) [facility] Department of Internal Medicine recommendsusing [...] or over-estimation of fracture risk by FRAX. Marcos Pérez MD IMG DXA PROCEDURES Final Re sult * Annual BMP Blood Test (01/28/2023) [facility] Annual BMP Blood Test Abstracted [facility] Provider HEALTH MAINTENANCE Final Result * (ABNORMAL) Lipid panel (06/11/2022) [facility] LDL/HDL Ratio 4 0 - 4 Triglycerides 239(A) 0 - 150 mg/dL Cholesterol 226(A) 0 - 200 mg/dL HDL 58 >=40 mg/dL LDL Cholesterol 121(A) 0 - 100 mg/dL Blood Venous blood specimen / Unknown Historical Provider LAB BLOOD ORDERABLES Kelly l Result * Colonoscopy (06/13/2021) [facility] Colonoscopy No Interpretation , Abstracted Anatomical Region Laterality Modality Other Historical Provider HEALTH MAINTENANCE Final Result * Hepatitis C Screening (02/04/2021) [facility] Hepatitis C Screening Abstracted us Historical Provider HEALTH MAINTENANCE Final Result from Last 3 Months or Most Recently Relevant to Health Maintenance [facility] Care Teams Fruit Harvest Worker Relationship Specialty Start Date End Date Dar Starks MD [address] [place] [id number] PCP - General Internal Medicine 10/20/21
--- OUTSIDE RECORDS SUMMARY | 2025-05-15 18:45 | XMS_ITS | Clinical Summary ---
Author Organization [facility] Address [address] [place] [address] Care Team Providers Care Denture Model Maker Name Role Phone Anum Starks Primary Care Provider [phone] Allergies Active Allergy Reactions Criticality Noted Date Comments Aspirin Vomiting 03/02/2024 stomach upset only Shellfish Derived Swelling High Medications delmer [id number] op-man-bor 250-40-125 mg-mg-unit tablet Magnesium 250 MG [...] Type Department Care Team Description 03/08/2025 Telephone [facility] 4th [address] [place] [address] Agricultural Research Technician: Yunior Baker NP Non-Covered/Excluded - PAC Retail Pharm Denial 03/07/2025 myChart Message [facility] 4[address] [place] [address] Agricultural Research Technician: Yunior Baker NP Elevated blood pressure 03/07/2025 Telephone [facility] [address] [phone] Agricultural Research Technician: Yunior Baker NP 03/06/2025 10:15 AM EDT Office Visit [facility] [address] [place] [phone] Agricultural Research Technician: Yunior Baker NP Rhytides (Primary Dx); [...] complete this topic Procedures * Due to [place] state law, this organization might not be sharing negative HIV tests. Procedure Name Priority Date/Time Associated Diagnosis Comments BASIC METABOLIC PANEL Routine 03/02/2024 11:55 AM EDT High risk medication use from Last 3 Months or Most Recently Relevant to Health Maintenance Results * Due to [place] state law, this organization might not be sharing negative HIV tests. * Basic Metabolic Panel (03/02/2024 11:55 AM EDT) NA 138 135 - 145 mmol/L 03/02/2024 1:27 PM EDT [facility] K 4.3 3.5 - 5.3 mmol/L 03/02/2024 1:27 PM EDT [facility] Cl 104 98 - 107 mmol/L 03/02/2024 1:27 PM EDT [facility] CO2 24 24 - 32 mmol/L 03/02/2024 1:27 PM EDT [facility] BUN 14 7 - 23 mg/dL 03/02/2024 1:27 PM EDT [facility] Creatinine 0.86 0.50 - 1.20 mg/dL 03/02/2024 1:27 PM EDT [facility] Glucose 96 65 - 99 mg/dL 03/02/2024 1:27 PM EDT [facility] Calcium 9.7 8.6 - 10.5 mg/dL 03/02/2024 1:27 PM EDT [facility] Anion Gap 10 5 - 15 [facility] MANUAL 03/02/2024 1:27 PM EDT [facility] eGFR 75 >=60 mL/min/1. 73m2 [facility] MANUAL 03/02/2024 1:27 PM EDT [facility] Comment:The estimated glomer ular [...] 03/02/2024 11:55 AM EDT us Yunior Rutledge [employer] LAB BLOOD ORDERABLES Final R esult [facility] [address] [place] [address], [place] from Last 3 Months or Most Recently Relevant to Health Maintenance Insurance [employer] Care Teams Denture Model Maker Relationship Specialty Start Date End Date Anum Starks [address] [facility] [place] [address] PCP - General Internal Medicine 11/12/23
--- OUTSIDE RECORDS SUMMARY | 2025-05-15 18:45 | XMS_ITS | Clinical Summary ---
Author Organization [facility] Address [address] [place] [address] Care Team Providers Care Vascular Surgeon Name Role Phone Unknown, Primary Care Provider [...] age to complete this topic Care Teams Vascular Surgeon Relationship Specialty Start Date End Date Unknown, PCP - General 07/08/22
--- OUTSIDE RECORDS SUMMARY | 2025-05-15 18:45 | XMS_ITS | Encounter Summary ---
Author Organization [facility] Address [address] [place] [address] Phone Care Team Providers Care Sewing Machine Assembler Name Role Phone Patricia Vasquez MD Primary Care Provider [phone] Encounter Details Date Type Department Care Team (Late st Contact Info) Description 08/27/2022 Telephone [facility] [address] [place] [address], [address] [place] [address] Dwain Jaramillo MD [address] [place] [address] [address] [place] [address] [email or web address] Social History Tobacco Use Types Packs/Day [...] on filedocumented in this encounter Care Teams Sewing Machine Assembler Relationship Specialty Start Date End Date Patricia Vasquez MD [address] [place] [address] PCP - General Internal Medicine 09/10/15 documented as of this encounter Additional Source Comments The information contained in this document represents components of the legal health record. It is not the complete legal health record.[facility]
== END 2025-05-15 16:50 | disposition home or self-care (01) ==
LOC: HO.MRI 16:49
PROVIDERS: Visit Provider Psychiatry & Neurology Neurology
DX: G43.109 Migraine with aura, not intractable, without status migrainosus (principal); H53.9 Unspecified visual disturbance
CPT/HCPCS: 70551

== ENCOUNTER → 2025-05-15 17:00 | Outpatient (BNV) | payer BC, SELFPAY | PROVIDERS: Visit Provider Radiology Diagnostic Radiology | DX: H53.9 Unspecified visual disturbance (principal) | CPT/HCPCS: 70551 ==